=== PATIENT | female | born 1955 | race Caucasian/White ===

== ENCOUNTER 2020-04-10 08:12 | Emergency (ER) | payer OTHER, SELFPAY ==
--- NOTE | 2020-04-10 08:33 | ED.SKABFB ---
HPI - Skin/Abscess/Foreign Bdy General Chief complaint: Skin/Abscess/Foreign Body Stated complaint: infected right third Time Seen by Provider: 04/10/20 08:34 Source: patient and RN notes reviewed Mode of arrival: ambulatory Limitations: no limitations History of Present Illness HPI narrative: 64-year-old female who presents to express care with complaints of pain and swelling around right 3rd finger nail bed for about 5-6 days. Patient states that it started as cuticle tear but has increased in swelling and redness. Patient states that she has soaked her finger in warm soapy water, has used peroxide and alcohol to cleanse area but no improvement. She states that she did put needle in area to attempt drainage but unsuccessful. She also has crusted area to the left thumb pad which she hit with a paperboard box maker that she inserted a needle in which she did get purulent drainage from which is now crusted with no redness noted. complaint: lesion Onset (ago): day(s) (5-6) Tetanus up to date: yes Location: R hand (3rd finger around lateral nailbed) Severity: moderate Severity scale (1-10): 5 Quality: aching Exacerbating factors: palpation Context: other (cuticle tear) Associated symptoms: denies other symptoms Treatments prior to arrival: attempted to drain pus at home Related Data Home Medications Medication Instructions Recorded Confirmed ergocalciferol (vitamin D2) 1,250 mcg PO MONTHLY 04/10/20 04/10/20 Allergies Allergy/AdvReac Type Severity Reaction Status Date / Time No Known Allergies Allergy Unverified 05/28/14 11:44 Review of Systems Review of Systems: Narrative: CONSTITUTIONAL: Denies fever, chills, or sweats. EYES: Denies visual changes, redness, or discharge. ENT: Denies rhinorrhea, congestion, sore throat, or otalgia. CARDIOVASCULAR: Denies chest pain, palpitations, or edema. RESPIRATORY: Denies cough or dyspnea. GASTROINTESTINAL: Denies abdominal pain, nausea, vomiting, or diarrhea. GENITOURINARY: Denies dysuria or hematuria. SKIN: Denies rash or itching.red inflamed tissue around 3rd finger nail bed MUSCULOSKELETAL: Denies back pain, joint pain, or myalgia. NEUROLOGIC: Denies headache, numbness, or weakness. PSYCHIATRIC: Denies anxiety or depression. All systems reviewed & are unremarkable except as noted in HPI and below PMFSH Past Medical History Medical History (Updated 04/11/20 @ 00:00 by Mark Rice) Arthritis Surgical History Surgical History (Updated 04/10/20 @ 08:39 by Sandy Ruvalcaba NP) H/O repair of left rotator cuff Hx of section Social History Social History (Updated 04/10/20 @ 09:04 by Sandy Ruvalcaba NP) Smoking status: Never smoker Alcohol intake: unknown Substance use: unknown Living arrangements: with family Gender identity (if verbalized by the patient): Female Comments At time of signature, agree with nursing past medical, surgical, social history. There is no relevant family history pertinent to the presenting complaint Exam Narrative: Exam Narrative: GENERAL: Well-appearing, well-nourished, and in no acute distress. HEAD: Normocephalic, atraumatic. EYES: PERRLA and EOMI. ENT: Nares clear, no rhinorrhea or epistaxis. Mucous membranes moist. NECK: Supple. CHEST: Clear to auscultation. No respiratory distress. HEART: Regular rate and rhythm. No murmur heard. Normal peripheral pulses. ABDOMEN: Soft, nontender, nondistended, normal active bowel sounds. EXTREMITIES: Normal range of motion. No edema. SKIN: Warm, dry, no rash. Red swollen tissue to nail bed of 3rd right finger, painful to palpation on lateral aspect of nailbed especially, no drainage noted, whitish tissue at lateral area where initial cuticle tear was. Patient denies any tingling or numbness to finger, nailbed has brisk capillary refill. NEURO: No focal deficits. Alert and oriented x3. Course Vital Signs Vital signs: Vital Signs Temperature 36.6 C 04/10/20 08:35 Pulse Rate
[2020-04-10 08:35] VITALS: BP 131/66; PULSE 72; RESP 16; TEMP 36.6; O2SAT 99
== END 2020-04-10 09:06 | disposition home or self-care (01) ==
PROVIDERS: Emergency Provider Registered Nurse; PCP Family Medicine
DX: L03.011 Cellulitis of right finger (principal); M19.90 Unspecified osteoarthritis, unspecified site
CPT/HCPCS: 10160; 99213; G0463

== ENCOUNTER 2020-11-03 10:02 | Outpatient (CLI) | payer OTHER, SELFPAY ==
[2020-11-03 10:26] LABS: Basophils Absolute Auto 0.1 K/mm3 (0.0-0.1); Basophils Percent Auto 0.7 % (0.2-1.2); Eosinophils Absolute Auto 0.3 K/mm3 (0-0.3); Eosinophils Percent Auto 4.6 % (0-4.4); Hematocrit 40.7 % (37.0-47.0); Hemoglobin 13.4 g/dL (12.0-15.0); Immature Granulocyte Absolute 0.04 K/mm3 (0.00-0.031); Immature Granulocyte Percent A 0.6 % (0-0.5); Lymphocytes Percent Auto 21.5 % (18.3-44.2); Mean Corpuscular HGB Conc 32.9 g/dl (32-36); Mean Corpuscular Hemoglobin 31.1 pg (26-34); Mean Corpuscular Volume 94.4 fl (80-100); Mean Platelet Volume 9.5 fl (7.4-10.4); Monocytes Absolute Auto 0.7 K/mm3 (0.1-0.6); Monocytes Percent Auto 9.3 % (2.6-8.5); Neutrophils Absolute Auto 4.4 K/mm3 (1.3-6.7); Neutrophils Percent Auto 63.3 % (45.5-73.1); Platelet Count Result 432 k/mm3 (150-375); Red Blood Count 4.31 M/mm3 (4.2-5.4); Red Cell Distribution Width 13.4 % (11.5-14.5)
[2020-11-03 10:39] LABS: Alanine Aminotransferase 15 U/L (4-35); Albumin Level 4.3 g/dL (3.5-5.1); Alkaline Phosphatase 52 U/L (38-126); Anion Gap 5 mmol/L (8-16); Aspartate Amino Transferase 29 U/L (14-36); Bilirubin,Total 0.7 mg/dL (0.2-1.3); Blood Urea Nitrogen 17 mg/dL (7-17); Calcium 9.2 mg/dL (8.4-10.2); Carbon Dioxide 29 mmol/L (22-30); Chloride 105 mmol/L (98-107); Cholesterol 201 mg/dL (0-200); Estimated Glomerular Filt Rate > 60; Glucose 92 mg/dL (65-105); HDL Direct 64 mg/dL; Potassium 4.3 mmol/L (3.4-5.0); Sodium 139 mmol/L (137-145); Triglycerides 88 mg/dL (<150)
[2020-11-03 10:50] LABS: LDL Cholesterol Direct 91 mg/dL
== END 2020-11-03 10:03 | disposition home or self-care (01) ==
PROVIDERS: PCP Internal Medicine; Visit Provider Internal Medicine
DX: Z00.00 Encounter for general adult medical examination without abnormal findings (principal)
CPT/HCPCS: 36415; 80053; 80061; 84443; 85025

== ENCOUNTER 2021-08-19 05:57 | Observation (INO) | payer OTHER, SELFPAY ==
[2021-08-05 08:57] VITALS: BMI 23.4
[2021-08-19] VITALS (30 sets, daily range): BP systolic 86–148; BP diastolic 53–69; PULSE 64–94; RESP 11–20; TEMP 36.1–37.3; O2SAT 95–100
--- NOTE | ~2021-08-19 | XR_ITS ---
EXAMINATION: XR chest 1V portable DATE: 08/19/2021 06:44 INDICATION: Syncope. Weakness. TECHNIQUE: frontal view of the chest was obtained. COMPARISON: Chest radiograph dated 04/04/2008 FINDINGS: Biapical pleural-parenchymal scarring and calcified nodule at the right apex consistent with old gran ulomatous disease. No other airspace opacities, pulmonary edema, pleural effusion or pneumothorax. Th e cardiomediastinal silhouette is normal. IMPRESSION: 1. No acute cardiopulmonary disease. Reviewed, dictated and finalized at location A. NICAL SALES SUPPORT MANAGER
--- NOTE | ~2021-08-19 | CT_ITS ---
EXAMINATION: CT brain wo con DATE: 08/19/2021 06:46 INDICATION: Syncope post fall TECHNIQUE: Computed tomography (CT) of the head was performed without intravenous contrast. Sagittal and coronal reconstructions were performed. The mA was adjusted according to patient size. Iterative reconstruction technique was employed. The dose-length product was 681.00 mGy-cm. COMPARISON: None FINDINGS: No fracture. No acute intracranial hemorrhage, acute infarction or abnormal extra axial fluid collect ion. Ventricles are normal and symmetric. No mass/mass effect. Changes of right intraocular lens repl acement. The orbits, paranasal sinuses and mastoid air cells are normal. IMPRESSION: 1. No fracture or acute intracranial process. Reviewed, dictated and finalized at location A. INTEGRATION ARCHITECT
--- NOTE | ~2021-08-19 | CT_ITS ---
EXAMINATION: CT cervical spine wo con DATE: 08/19/2021 06:46 INDICATION: Neck pain post syncopal episode with fall. TECHNIQUE: Computed tomography (CT) of the cervical spine was performed without intravenous contrast. Automated exposure control and iterative reconstruction technique were employed. The dose-length pro duct was 117.81 mGy-cm. COMPARISON: None FINDINGS: Alignment is normal. Vertebral body heights are normal. No fracture. Moderate disc height loss at C5- C6 and C6-C7 and mild disc height loss at C2-C3 and C4-C5. Dense sclerotic lesion with spiculated mar gins at the C5 vertebral body likely bone island. Biapical pleural-parenchymal scarring. Calcified no dule at the right apex consistent with old granulomatous disease. Cervical soft tissues are unremarka ble. The following disc levels are specifically discussed: C2-C3: There is no uncovertebral joint osteoarthritis. There is mild left and severe right facet join t osteoarthritis. There is no neural foraminal stenosis. There is no central canal stenosis. C3-C4: There is mild bilateral uncovertebral joint osteoarthritis. There is mild right and moderate l eft facet joint osteoarthritis. There is no neural foraminal stenosis. There is no central canal sten osis. C4-C5: Disc is mildly bulging. There is mild right and moderate left uncovertebral joint osteoarthrit is. There is mild right and severe left facet joint osteoarthritis. There is minimal right and mild l eft neural foraminal stenosis. There is mild central canal stenosis. C5-C6: Small posterior disc osteophyte complex. There is moderate bilateral uncovertebral joint osteo arthritis. There is mild left and moderate right facet joint osteoarthritis. There is mild bilateral neural foraminal stenosis. There is mild central canal stenosis. C6-C7: Small posterior disc osteophyte complex. There is severe bilateral uncovertebral joint osteoar thritis. There is mild bilateral facet joint osteoarthritis. There is mild bilateral neural foraminal stenosis. There is mild central canal stenosis. C7-T1: There is no uncovertebral joint osteoarthritis. There is severe right and moderate left facet joint osteoarthritis. There is no neural foraminal stenosis. There is no central canal stenosis. IMPRESSION: 1. Moderate cervical spondylosis. No acute osseous abnormality. Reviewed, dictated and finalized at location A. PRESS TENDER
--- NOTE | ~2021-08-19 | US_ITS ---
EXAMINATION: US carotid duplex BI DATE: 08/20/2021 10:57 INDICATION: Syncope TECHNIQUE: Grayscale, color Doppler, and pulsed Doppler images of the cervical carotid arteries were obtained. The degree of vessel stenosis is placed in one of the following categories: normal, <50%, 5 0-69%, >=70% but less than near-occlusion, near-occlusion, or total occlusion. Note that percent sten osis relative to normal distal artery lumen diameter is indirectly measured from velocity measurement s as described by Miguel Angel, et al. Radiology 2003; [id number]. COMPARISON: None. FINDINGS: RIGHT: The right common carotid artery (CCA) peak systolic velocity (PSV) is 142 cm/s. The right internal ca rotid artery (ICA) PSV is 87 cm/s. The right ICA end-diastolic velocity (EDV) is 10 cm/s. The right I CA/CCA PSV ratio is 0.6. Grayscale and color Doppler images yield an estimate of <50% diameter reduct ion from minimal plaque in the ICA. The external carotid artery (ECA) PSV is 142 cm/s. There is anteg rade flow in the right vertebral artery. LEFT: The left CCA PSV is 142 cm/s. The left ICA PSV is 89 cm/s. The left ICA EDV is 29 cm/s. The left ICA/ CCA PSV ratio is 0.6. Grayscale and color Doppler images yield an estimate of <50% diameter reduction from minimal plaque in the ICA. The ECA PSV is 159 cm/s. There is antegrade flow in the left vertebr al artery. IMPRESSION: 1. <50% stenosis from minimal plaque in the right internal carotid artery. 2. <50% stenosis from minimal plaque in the left internal carotid artery. Reviewed, dictated and finalized at location A. LE HAND
--- NOTE | 2021-08-19 06:26 | ECG_ITS ---
Measurements Intervals [place] Rate: 62 P: 33 SC: 181 QRS: 66 QRSD: 110 T: 58 QT: 426 QTc: 435 Interpretive Statements SINUS RHYTHM INCOMPLETE RIGHT BUNDLE BRANCH BLOCK BASELINE ARTIFACT- I, II, III, AVR, AVF, V1, V5 BORDERLINE ECG Electronically Signed On 08-19-2021 7:17:51 EDGE KITTER by Zenon Mason D.O.
--- NOTE | 2021-08-19 06:33 | PC.NURSE ---
Pt to CT at this time.
[2021-08-19] MEDS: SODIUM CHLORIDE 0.9% IV 1,000 ML 999 ML IV CONT ×2 (06:44→09:01)
--- NOTE | 2021-08-19 06:44 | ED.GENADULT ---
HPI - General Adult General Chief complaint: Syncope <Tai Aiken MD - Last Filed: 08/19/21 06:49> Stated complaint: syncope hit head <Tai Aiken MD - Last Filed: 08/19/21 06:49> Time Seen by Provider: 08/19/21 06:17 <Tai Aiken MD - Last Filed: 08/19/21 06:49> History of Present Illness HPI narrative: Patient is a 65-year-old female who presents the emergency department with chief complaint of syncope. The patient reports has been undergoing a bowel prep for colonoscopy today the patient states that she has had multiple episodes where she has become lightheaded and passed out or almost passed out with having a total of 4 episodes of that. The patient states that the last when she struck her head and felt extremely weak afterwards. The patient denies chest pain reports that her ribs are sore <Tai Aiken MD - Last Filed: 08/19/21 06:49> Related Data Home medications: Home Medications Medication Instructions Recorded Confirmed ergocalciferol (vitamin D2) 1,250 mcg PO MONTHLY 04/10/20 08/05/21 calcium citrate 200 mg (950 mg) 200 mg PO DAILY 11/03/20 08/05/21 tablet cholecalciferol (vitamin D3) 25 25 mcg PO DAILY 11/03/20 08/05/21 mcg (1,000 unit) capsule multivitamin 1 tablet PO DAILY 11/03/20 08/05/21 <Tai Aiken MD - Last Filed: 08/19/21 06:49> Allergies/adverse reactions: Allergies Allergy/AdvReac Type Severity Reaction Status Date / Time No Known Allergies Allergy Verified 08/19/21 06:10 <Tai Aiken MD - Last Filed: 08/19/21 06:49> Review of Systems Review of Systems: A 10 system review of systems was completed on the patient and is negative except for what is stated in the HPI. Nursing and ancillary documentation was reviewed. <Tai Aiken MD - Last Filed: 08/19/21 06:49> PMFSH Past Medical History Medical History: Medical History Age related osteoporosis Arthritis <Tai Aiken MD - Last Filed: 08/19/21 06:49> Surgical History Surgical History: Surgical History H/O breast biopsy H/O repair of left rotator cuff Hx of section <Tai Aiken MD - Last Filed: 08/19/21 06:49> Family History Family History: Family History Father Diabetes mellitus Hypertension Mother Hypertension <Tai Aiken MD - Last Filed: 08/19/21 06:49> Social History Social History: Social History Smoking status: Never smoker Alcohol intake: never Substance use: never Substance use type: does not use Gender identity (if verbalized by the patient): Female Spiritual care concerns: No <Tai Aiken MD - Last Filed: 08/19/21 06:49> Exam Narrative: GENERAL: Well-appearing, well-nourished, and in no acute distress. HEAD: Normocephalic, atraumatic. EYES: PERRLA and EOMI. ENT: Nares clear, no rhinorrhea or epistaxis. Mucous membranes moist. NECK: Supple. CHEST: Clear to auscultation. No respiratory distress. HEART: Regular rate and rhythm. No murmur heard. Normal peripheral pulses. ABDOMEN: Soft, nontender, nondistended, normal active bowel sounds. EXTREMITIES: Normal range of motion. No edema. SKIN: Warm, dry, no rash. NEURO: No focal deficits. Alert and oriented x3. PSYCH: Normal mood and affect. <Tai Aiken MD - Last Filed: 08/19/21 06:49> Course Course Emergency Course: EKG is sinus rhythm rate of 62 QRS is 133 <Tai Aiken MD - Last Filed: 08/19/21 06:49> No syncopal episode throughout her ER stay. Discussed with the hospitalist and accepted the admit. <Kyree Salinas MD - Last Filed: 08/19/21 09:08
[2021-08-19 06:54] LABS: Basophils Absolute Auto 0.1 K/mm3 (0.0-0.1); Basophils Percent Auto 0.3 % (0.2-1.2); Eosinophils Percent Auto 0.1 % (0-4.4); Hematocrit 45.5 % (37.0-47.0); Hemoglobin 15.6 g/dL (12.0-15.0); Immature Granulocyte Percent A 0.5 % (0-0.5); Lymphocytes Percent Auto 4.9 % (18.3-44.2); Mean Corpuscular HGB Conc 34.3 g/dl (32-36); Mean Corpuscular Hemoglobin 32.2 pg (26-34); Mean Corpuscular Volume 93.8 fl (80-100); Mean Platelet Volume 9.7 fl (7.4-10.4); Monocytes Absolute Auto 0.7 K/mm3 (0.1-0.6); Monocytes Percent Auto 3.6 % (2.6-8.5); Neutrophils Absolute Auto 16.5 K/mm3 (1.3-6.7); Neutrophils Percent Auto 90.6 % (45.5-73.1); Platelet Count Result 583 k/mm3 (150-375); Red Blood Count 4.85 M/mm3 (4.2-5.4); Red Cell Distribution Width 13.7 % (11.5-14.5); White Blood Count 18.2 K/mm3 (4.5-10.0)
[2021-08-19 07:12] LABS: Lactic Acid Reflex 1.9 mmol/L (0.7-2.1)
[2021-08-19 07:13] LABS: Prothrombin Time 13.3 Seconds (11.1-14.7)
[2021-08-19 07:14] LABS: Partial Thromboplastin Time 23.9 SECONDS (22.3-36.8)
[2021-08-19 07:17] LABS: Alanine Aminotransferase 22 U/L (4-35); Albumin Level 5.1 g/dL (3.5-5.1); Alkaline Phosphatase 70 U/L (38-126); Anion Gap 14 mmol/L (8-16); Aspartate Amino Transferase 48 U/L (14-36); Bilirubin,Total 1.4 mg/dL (0.2-1.3); Blood Urea Nitrogen 17 mg/dL (7-17); Carbon Dioxide 18 mmol/L (22-30); Chloride 103 mmol/L (98-107); Estimated CRCL calculation 40 ml/min; Estimated Glomerular Filt Rate 55; Glucose 127 mg/dL (65-110); Potassium 4.1 mmol/L (3.4-5.0); Sodium 135 mmol/L (137-145)
[2021-08-19 07:23] LABS: Troponin I 0.016 ng/mL (0.000-0.034)
[2021-08-19 07:27] LABS: Add Urine Microscopic? YES; Appearance Urine Cloudy (Clear); Bacteria Urine Trace /hpf; Bilirubin Urine Negative (Negative); Blood Urine 1+ (Negative); Color Urine Amber (Yellow); Glucose Urine UA Negative (Negative); Hyaline Casts Urine 50+ /lpf; Ketones Urine Negative (Negative); Leukocyte Esterase Ur Negative LEU/UL (Negative); Mucus Urine Moderate /lpf; Nitrate Urine Negative (Negative); Protein Urine 3+ mg/dL (Negative); Specific Grav Ur 1.024 (1.001-1.035); Squamous Epithelial Cell Urine Few /hpf (Few); Urobilinogen Urine Negative mg/dL (<2.0)
[2021-08-19 07:33] LABS: Magnesium 2.8 mg/dL (1.6-2.3)
[2021-08-19 10:07] LABS: Troponin I < 0.012 ng/mL (0.000-0.034)
[2021-08-19] MEDS: LACTATED RINGERS 1,000 ML 125 ML IV CONT ×2 (10:09→18:55)
--- NOTE | 2021-08-19 11:10 | PC.NURSE ---
Pt inquiring about her colonoscopy. States to this nurse if I can't have it done today then I will just leave.
--- NOTE | 2021-08-19 12:46 | ADMGEN ---
This patient, Mariluz Stephen, was admitted to Medical Room 248-. Patient/family oriented to hospital policies and general routines including ID bracelet, bed and alarms, visiting hours, pain management, procedures, bathroom and other care routines, personal items, smoking policy, room service/diet, and visiting hours. Information on how to activate the Rapid Response Team has been discussed. Patient/Family are encouraged to report perceived risks to care and to ask questions if they do not understand what they are told or what they should do.
[2021-08-19 13:10] LABS: Troponin I < 0.012 ng/mL (0.000-0.034)
--- NOTE | 2021-08-19 13:13 | CONS_ITS ---
This report was moved to the correct visit, on 08/31/21. Original report was signed by Osmani Park MD 08/19/21 1313. Assessment and Plan Assessment and plan (1) Encounter for screening colonoscopy: Code(s): Z12.11 - Encounter for screening for malignant neoplasm of colon Status: Acute Assessment and Plan: Patient presents for screening colonoscopy. Has already had preparation. Will plan to proceed with colonoscopy tomorrow as she is prepared if syncope workup is negative. Workup in the emergency room appears unremarkable. (2) Syncope: Qualifiers: Syncope type: unspecified Qualified Code(s): R55 - Syncope and collapse Code(s): R55 - Syncope and collapse Status: Acute Assessment and Plan: Patient had near syncopal episode last evening. Likely on the basis of dehydration. She may have had some vagal symptoms. Plan for IV fluids proceed with colonoscopy in a.m. if others agree. GI Consult Note Consult date/time: 08/19/21 13:10 HPI: Mariluz Stephen is a 65 year old female I am asked to see for a screening colonoscopy. Patient initially scheduled for outpatient colonoscopy today. Patient's last colonoscopy 10 years ago. Patient was somewhat concerned over poor preparation and for this reason has remained on a liquid diet for the last 2-3 days. Last evening she took some laxative preparation. She reports a near syncopal episode and fell in the restroom. For this reason was taken to the emergency room. She was admitted for observation IV fluids. Apparently a CT scan of the head, neck was unremarkable. Chest x-ray also unremarkable. Patient states her bowel habits tend to be normal. She has no bleeding. No abdominal pain. No fever. Her family history is noncontributory. Review of Systems Review of Systems: All systems reviewed & are unremarkable except as noted in HPI and below PMFSH Past Medical History Medical History Age related osteoporosis Arthritis Surgical History Surgical History H/O breast biopsy H/O repair of left rotator cuff Hx of section Family History Family History (Updated 08/19/21 @ 13:04 by Maribell Leija RN) Father Diabetes mellitus Hypertension Pneumonia Sepsis Mother Hypertension Social History Social History Smoking status: Never smoker Alcohol intake: never Substance use: never Substance use type: does not use Gender identity (if verbalized by the patient): Female Spiritual care concerns: No Meds Home Medications and Allergies Home Medications Medication Instructions Recorded Confirmed Type ergocalciferol (vitamin D2) 1,250 mcg PO MONTHLY 04/10/20 08/19/21 History calcium citrate 200 mg (950 mg) 200 mg PO DAILY 11/03/20 08/19/21 History tablet cholecalciferol (vitamin D3) 25 25 mcg PO DAILY 11/03/20 08/19/21 History mcg (1,000 unit) capsule multivitamin 1 tablet PO DAILY 11/03/20 08/19/21 History Allergies Allergy/AdvReac Type Severity Reaction Status Date / Time No Known Allergies Allergy Verified 08/19/21 13:03 Exam Narrative: Physical exam patient is alert comfortable at rest. HEENT exam is unremarkable to my exam. She is anicteric. Lungs are clear. Heart without murmur. Abdomen bowel sounds are present soft nontender with no organomegaly. [facility] Consult Billing Inpatient Consult [id number] Initial Admit M
--- NOTE | 2021-08-19 18:02 | PM.IMHP ---
H&P: HPI History of Present Illness Date/Time: 08/19/21 1700 this is a 65 who had been prepping herself for a routine colonoscopy. Patient was scheduled to have a colonoscopy this morning. However yesterday when the patient was prepping for her colonoscopy she felt lightheaded and fell on the floor. She stated that she did hit her head at that time but she does not recall losing consciousness. The patient stated that she also vomited and when she got up she believes that she slid on the vomitus and hit her head again. However the her stated that she had 4 episodes of syncope in that she did lose consciousness. The patient stated that her cognitive level decreased and her was concerned because she had her head twice. So he brought her to the emergency room. The patient stated that she felt very weak prior to coming to the emergency room. The patient was scheduled for a colonoscopy as a routine procedure and has not had any issues. Last routine colonoscopy was over 10 years ago. GI has been consulted and the plan is to proceed with colonoscopy tomorrow if possible. Her white count was noted to be 18.2. Magnesium 2.8. Troponins were negative x3. Blood sugar 127. Head CT was read as no fracture or acute intracranial process. Chest x-ray was read as no acute cardiopulmonary disease. Cervical spine CT was read as moderate cervical spondylosis no acute osseous abnormality. The patient is complaining of having some discomfort to the right side of her chest. The pain is reproducible and hurts worse with movement. The patient was started on IV fluids in the emergency room. The patient felt nauseated and vomited earlier while prepping for colonoscopy but is no longer feeling nauseated. The patient is being admitted to observation on date of service of 08/19/2021. Chief Complaint: Syncopal episode Review of Systems Review of Systems: All systems reviewed & are unremarkable except as noted in HPI and below Constitutional: Constitutional: Reports as per HPI and Reports no additional constitutional complaints Eyes: Eyes: Reports as per HPI and Reports no additional eye complaints ENT: Reports system reviewed and no additional complaints, except as documented and Reports Normal hearing present Cardiovascular: Cardiovascular: Reports no additional cardiovascular complaints Respiratory: Respiratory: Reports no additional respiratory complaints and Reports no additional respiratory complaints Gastrointestinal: Gastrointestinal: Reports as per HPI and Reports no additional gastrointestinal complaints Musculoskeletal: Musculoskeletal: Reports no additional musculoskeletal complaints Integumentary/Breasts: Skin/Breast: Reports system reviewed and no additional complaints, except as docu and Reports as per HPI Neurologic: Reports system reviewed and no additional complaints, except as documented, Reports as per HPI and Reports Normal hearing present Psychiatric: Psychiatric: Reports no additional psychiatric complaints and Reports as per HPI Endocrine: Endocrine: Reports no additional endocrine complaints Hematologic/Lymphatic: Hematologic/Lymphatic: Reports no additional hematologic/lymphatic complaints Allergic/Immunologic: Allergic/Immunologic: Reports no additional allergic/immunologic complaints [facility] Past Medical History Medical History Age related osteoporosis Arthritis Surgical History Surgical History H/O breast biopsy H/O repair of left rotator cuff Hx of section Family History Family History Father Diabetes mellitus Hypertension Pneumonia Sepsis Mother Hypertension Social History Social History (Updated 08/19/21 @ 18:24 by Luli Murcia NP) Social History: The patient is and her is the durable power at
[2021-08-20] VITALS (9 sets, daily range): BP systolic 100–152; BP diastolic 61–78; PULSE 71–94; RESP 14–19; TEMP 36.6–36.9; O2SAT 97–99; BMI 24.9
--- NOTE | 2021-08-20 | ECHO_ITS ---
Patient Info Name: Mariluz Stephen Age: 65 years : 1955 Gender: Female Ht: 63 in Wt: 135 lbs BSA: 1.66 m2 HR: 81 bpm BP: 136 / 64 mmHg Heart Rhythm: Sinus Rhythm Technical Quality: Fair Exam Date: 08/20/2021 9:44 AM Exam Location: [facility]monary Patient Status: Inpatient Admit Date: 08/19/2021 Staff Ordering Physician: Luli Murcia NP Sales Compensation Analyst: Anh Lopes RDCS Attending Provider: Tai Giles MD Referring Physician: Divina LIN; Exam Type: CA echo doppler color flow Study Info Indications - syncope Complete two-dimensional, color flow and Doppler transthoracic echocardiogram is performed. Summary 1. Complete two-dimensional, color flow and Doppler transthoracic echocardiogram is performed. 2. Left ventricular chamber dimension is normal. 3. Left ventricular systolic function is hyperdynamic, estimated at >70%. 4. The left ventricular diastolic function is normal. 5. E/e' 9 is minimally elevated. 6. No pulmonary hypertension, estimated pulmonary arterial systolic pressure is 28 mmHg. Left Ventricle E/e' 9 is minimally elevated. Left ventricular chamber dimension is normal. Left ventricular systolic function is hyperdynamic, estimated at >70%. The left ventricular diastolic function is normal. Right Ventricle Right ventricular systolic function is normal and with normal TAPSE 2.0 cm. Right ventricular chamber dimension is normal. Left Atria Left atrial chamber dimension is normal. Right Atria Right atrial chamber dimension is normal. Aortic Valve The aortic valve is trileaflet. There is no aortic valve stenosis. There is no aortic valve regurgitation. Pulmonic Valve There is no pulmonic regurgitation. Mitral Valve There is no mitral valve stenosis. There is no mitral valve regurgitation. Tricuspid Valve There is no tricuspid valve regurgitation. No pulmonary hypertension, estimated pulmonary arterial systolic pressure is 28 mmHg. Pericardium/Pleural There is no pericardial effusion. Inferior Vena Cava Normal inferior vena cava with >50% collapse upon inspiration consistent with normal right atrial pressure, 5 mmHg. Aorta The aortic root size at the sinus of Valsalva is normal. Left Ventricular Outflow Tract Name Value Normal LVOT 2D LVOT Diameter 1.9 cm LVOT Doppler LVOT Peak Gradient 11 mmHg LVOT Mean Gradient 5 mmHg LVOT VTI 31 cm LVOT VTI/AV VTI Ratio 0.8 LVOT Stroke Volume 90 ml LVOT CO 6.8 l/min LVOT CI 4.1 l/min/m2 Pulmonic Valve Name Value Normal RVOT Doppler RVOT Peak Gradient 3 mmHg PV Doppler
[2021-08-20] MEDS: LACTATED RINGERS 1,000 ML 125 ML IV CONT (03:02)
[2021-08-20 05:56] LABS: Basophils Percent Auto 0.3 % (0.2-1.2); Eosinophils Absolute Auto 0.1 K/mm3 (0-0.3); Eosinophils Percent Auto 0.8 % (0-4.4); Hematocrit 35.1 % (37.0-47.0); Hemoglobin 12.1 g/dL (12.0-15.0); Immature Granulocyte Absolute 0.03 K/mm3 (0.00-0.031); Immature Granulocyte Percent A 0.3 % (0-0.5); Lymphocytes Absolute Auto 1.22 K/mm3 (0.9-3.2); Lymphocytes Percent Auto 11.5 % (18.3-44.2); Mean Corpuscular HGB Conc 34.5 g/dl (32-36); Mean Corpuscular Hemoglobin 32.4 pg (26-34); Mean Corpuscular Volume 93.9 fl (80-100); Mean Platelet Volume 9.5 fl (7.4-10.4); Monocytes Absolute Auto 0.9 K/mm3 (0.1-0.6); Monocytes Percent Auto 8.1 % (2.6-8.5); Neutrophils Absolute Auto 8.4 K/mm3 (1.3-6.7); Platelet Count Result 475 k/mm3 (150-375); Red Blood Count 3.74 M/mm3 (4.2-5.4); Red Cell Distribution Width 13.7 % (11.5-14.5); White Blood Count 10.6 K/mm3 (4.5-10.0)
[2021-08-20 06:10] LABS: Lactic Acid Reflex 0.7 mmol/L (0.7-2.1)
[2021-08-20 06:15] LABS: Alanine Aminotransferase 15 U/L (4-35); Albumin Level 3.7 g/dL (3.5-5.1); Alkaline Phosphatase 59 U/L (38-126); Anion Gap 6 mmol/L (8-16); Aspartate Amino Transferase 31 U/L (14-36); Bilirubin,Total 0.9 mg/dL (0.2-1.3); Blood Urea Nitrogen 7 mg/dL (7-17); Calcium 8.4 mg/dL (8.4-10.2); Carbon Dioxide 23 mmol/L (22-30); Chloride 107 mmol/L (98-107); Estimated CRCL calculation 65 ml/min; Estimated Glomerular Filt Rate > 60; Glucose 102 mg/dL (65-110); Magnesium 2.3 mg/dL (1.6-2.3); Potassium 3.3 mmol/L (3.4-5.0); Sodium 136 mmol/L (137-145)
[2021-08-20 07:24] LABS: Thyroid Stimulating Hormone Reflex 0.933 uIU/mL (0.465-4.68)
--- NOTE | 2021-08-20 12:01 | PC.NURSE ---
Patient to GI lab per wheelchair.
[2021-08-20] MEDS: LACTATED RINGERS 1,000 ML 150 ML IV CONT (12:15)
--- NOTE | 2021-08-20 12:36 | WPDHPUPDATE1 ---
History and Physical Update Update Date/Time: 08/20/21 12:36 History and Physical has been reviewed, including an updated exam of the patient. There are NO changes in the patient's condition. Risks, benefits, and alternatives have been discussed and questions answered. Patient agrees to proceed with procedure.
--- NOTE | 2021-08-20 13:59 | PC.NURSE ---
Patient returned from GI lab.
--- NOTE | 2021-08-20 14:16 | PM.DS ---
DS: Admitting Diagnosis Discharge Date 08/20/21 Admitting Diagnosis (1) Syncope: Qualifiers: Syncope type: unspecified Qualified Code(s): R55 - Syncope and collapse Code(s): R55 - Syncope and collapse Status: Acute Assessment and Plan: I ambulated the patient to the restroom and she appeared to do well. This could be a vagal response. Patient could also be dehydrated. Continue with IV fluids for now. The patient is no longer nauseated. The patient stated that she became nauseated and weak after taking the prep for the colonoscopy. Will continue with orthostatic blood pressures. I did order an echo and carotid Dopplers. Patient is not currently having any issues at this time and should proceed with her colonoscopy. (2) Leukocytosis: Code(s): D72.829 - Elevated white blood cell count, unspecified Status: Acute Assessment and Plan: Unsure of etiology. Could be stress related. UA was negative. Urine cultures pending. Chest x-ray was negative as well. (3) Encounter for screening colonoscopy: Code(s): Z12.11 - Encounter for screening for malignant neoplasm of colon Status: Acute Assessment and Plan: The patient saw the GI specialist today and the plan is for the patient to go through with colonoscopy tomorrow. DS: Discharge Diagnosis Discharge Diagnosis (1) Vasovagal episode: Code(s): R55 - Syncope and collapse Status: Acute (2) Syncope: Qualifiers: Syncope type: unspecified Qualified Code(s): R55 - Syncope and collapse Code(s): R55 - Syncope and collapse Status: Acute (3) Polyp of ascending colon: Code(s): K63.5 - Polyp of colon Status: Acute (4) Internal hemorrhoids: Code(s): K64.8 - Other hemorrhoids Status: Acute (5) Diverticulosis: Code(s): K57.90 - Diverticulosis of intestine, part unspecified, without perforation or abscess without bleeding Status: Acute DS: Summary Hospital Course Reason for hospitalization: syncope Hospital Course: 65-year-old female with no significant comorbidities admitted to the hospital after suffering what appears to be a vasovagal episode during bowel prep for a colonoscopy. She has remained stable during hospitalization telemetry monitoring without any events noted, bilateral carotid ultrasound negative for stenosis, echocardiogram was unremarkable. Patient underwent colonoscopy during hospitalization with findings of polyps in the ascending colon, internal hemorrhoids, diverticulosis. She is given indications to follow-up with Dr. Park after discharge as well as her PCP. Status at Discharge Functional status at discharge: independent ambulation Overall status at discharge: patient is back to baseline Time Spent with Patient Time attestation: Total time spent providing and/or coordinating discharge services: Time spent: Less than 30 minutes Exam Narrative: GEN: NAD, AAOx3, cooperative HEENT: NCAT, MMM, EOMI Neck: no JVD Lungs: symmetric chest rise, no use of accessory muscles Abd: soft, NT, ND Ext: moves all, no cyanosis, no clubbing, no edema Neuro: CN intact no focal neurological deficits Psych: mood and affect congruent DS: Data Data Completed and Pending Pending studies at discharge: Pending at discharge 08/20/21 13:24 Surgical [PTH] Routine Labs on day of discharge: Labs from last 24 hours 08/20/21 08/20/21 08/20/21 05:36 05:36 05:36 WBC RBC Hgb Hct MCV MCH MCHC RDW Plt Count MPV Immature Gran % (Auto) Neut % (Auto) Lymph % (Auto) Converse % (Auto) Eos % (Auto) Baso % (Auto) Lymph # (Auto) Converse # (Auto) Eos # (Auto) Baso # (Auto) Abs Immat Gran (auto) Absolute Neuts (auto) Absolute Nucleated RBC Nucleated RBC % Sodium 136 L Potassium 3.3 L Chloride 107 Carbon Dioxide 23 Anion Gap 6 L BUN 7 D Cre
== END 2021-08-20 16:25 | disposition home or self-care (01) ==
LOC: ANHED 09:08 → ANH3MEDSUR 11:06 → ANH2MED 15:08 → ANH3MEDSUR 08-23 16:57
PROVIDERS: Emergency Medicine; Internal Medicine Gastroenterology; Nurse Practitioner; Admitting Provider Internal Medicine; Emergency Provider Emergency Medicine; PCP Internal Medicine; Visit Provider Hospitalist
PROC: 0DJD8ZZ Inspection of Lower Intestinal Tract, Via Natural or Artificial Opening Endoscopic (ICD-10-PCS; CPT 45378; principal; 2021-08-20 13:30)
DX: R55 Syncope and collapse (principal); D72.829 Elevated white blood cell count, unspecified; W18.39XA Other fall on same level, initial encounter; I65.23 Occlusion and stenosis of bilateral carotid arteries; Z12.11 Encounter for screening for malignant neoplasm of colon; D12.2 Benign neoplasm of ascending colon; K64.8 Other hemorrhoids; K57.32 Diverticulitis of large intestine without perforation or abscess without bleeding; M81.0 Age-related osteoporosis without current pathological fracture; M47.812 Spondylosis without myelopathy or radiculopathy, cervical region
CPT/HCPCS: 45385; 36415; 70450; 71045; 72125; 80053; 81001; 82728; 83605; 83735; 84443; 84484; 85025; 85610; 85730; 87086; 87088; 88305; 93005; 93306; 93880; 96360; 96361; 99285; G0378; J2704; J7030; J7120

== ENCOUNTER → 2021-08-27 11:07 | Outpatient (CLI) | payer OTHER, SELFPAY ==
--- NOTE | ~2021-08-27 | XR_ITS ---
XR ribs BI 3V w CXR 2V DATE: 08/27/2021 11:58 INDICATION: Fall. Bilateral rib pain. TECHNIQUE: PA and lateral views. 3 views of right ribs. 3 views of left ribs. COMPARISON: 08/19/2021 portable upright AP chest FINDINGS: Normal heart size. No hilar or mediastinal enlargement. No pulmonary infiltrate or consolid ation, pleural effusion or pulmonary vascular congestion or pneumothorax. Diffuse osteopenia. There are mildly displaced anterolateral right fifth and sixth recent rib fractures. No other rib fra cture is evident. IMPRESSION: Mildly displaced anterolateral recent right fifth and sixth rib fractures since 08/19/2021 Reviewed, dictated and finalized at location A. GER CUSTOMER IMPRESSION: Mildly displaced anterolateral recent right fifth and sixth rib fra ctures since 08/19/2021
== END ==
PROVIDERS: PCP Physician Assistant; Visit Provider Physician Assistant
DX: S22.41XA Multiple fractures of ribs, right side, initial encounter for closed fracture (principal); X58.XXXA Exposure to other specified factors, initial encounter
CPT/HCPCS: 71046; 71110

== ENCOUNTER 2021-10-05 13:26 | Outpatient (CLI) | payer OTHER, SELFPAY ==
--- NOTE | ~2021-10-05 | XR_ITS ---
XR thoracic spine 2V DATE: 10/05/2021 13:51 INDICATION: Back pain, chronic TECHNIQUE: AP, lateral, swimmer views COMPARISON: None FINDINGS: There is osteopenia. There is slight dextroscoliosis of the upper thoracic spine and slight levoscoliosis of the lower tho racic spine. No fracture or dislocation or bone destruction. The thoracic pedicles are intact. No paraspinal soft tissue thickening. IMPRESSION: Osteopenia Slight scoliosis Reviewed, dictated and finalized at location A. TRY KILLER IMPRESSION: Osteopenia Slight scoliosis
== END 2021-10-05 13:27 | disposition home or self-care (01) ==
LOC: ANHIMG 13:29
PROVIDERS: PCP Internal Medicine; Visit Provider Internal Medicine
DX: M54.9 Dorsalgia, unspecified (principal); M85.88 Other specified disorders of bone density and structure, other site
CPT/HCPCS: 72070

== ENCOUNTER 2023-06-12 14:39 | Outpatient (CLI) | payer OTHER, SELFPAY ==
[2023-06-12 14:54] LABS: Basophils Absolute Auto 0.1 K/mm3 (0.0-0.1); Basophils Percent Auto 0.5 % (0.2-1.2); Eosinophils Absolute Auto 0.2 K/mm3 (0-0.3); Hematocrit 40.1 % (37.0-47.0); Hemoglobin 13.6 g/dL (12.0-15.0); Immature Granulocyte Absolute 0.08 K/mm3 (0.00-0.031); Immature Granulocyte Percent A 0.8 % (0-0.5); Lymphocytes Absolute Auto 1.47 K/mm3 (0.9-3.2); Lymphocytes Percent Auto 14.1 % (18.3-44.2); Mean Corpuscular HGB Conc 33.9 g/dl (32-36); Mean Corpuscular Hemoglobin 31.7 pg (26-34); Mean Corpuscular Volume 93.5 fl (80-100); Monocytes Absolute Auto 0.7 K/mm3 (0.1-0.6); Monocytes Percent Auto 6.3 % (2.6-8.5); Neutrophils Percent Auto 76.3 % (45.5-73.1); Platelet Count Result 718 k/mm3 (150-375); Red Blood Count 4.29 M/mm3 (4.2-5.4); Red Cell Distribution Width 14.3 % (11.5-14.5); White Blood Count 10.4 K/mm3 (4.5-10.0)
[2023-06-12 16:57] LABS: Iron 70 ug/dL (37-170)
[2023-06-12 17:23] LABS: Percent Iron Saturation 19 % (20-50)
[2023-06-12 17:34] LABS: Erythrocyte Sedimentation Rate 11 mm/hr (0-20)
[2023-06-12 18:30] LABS: Alanine Aminotransferase 20 U/L (6-35); Albumin Level 4.4 g/dL (3.5-5.1); Alkaline Phosphatase 62 U/L (38-126); Anion Gap 5 mmol/L (8-16); Aspartate Amino Transferase 32 U/L (14-36); Bilirubin,Total 0.7 mg/dL (0.2-1.3); Blood Urea Nitrogen 17 mg/dL (7-17); CRP < 0.5 mg/dL (<1.0); Calcium 9.9 mg/dL (8.4-10.2); Carbon Dioxide 27 mmol/L (22-30); Chloride 103 mmol/L (98-107); Estimated Glomerular Filt Rate > 60; Glucose 90 mg/dL (65-110); Sodium 135 mmol/L (137-145)
[2023-06-18 15:14] LABS: Block/Specimen ID Not Given; Exon 14; Gene JAK2; JAK2 V617F Mutation Detected (Not Detected); Mutation Frequency 20.6; Mutation Type missense; Specimen Source Blood
== END 2023-06-12 14:40 | disposition home or self-care (01) ==
PROVIDERS: Nurse Practitioner Family; PCP Internal Medicine; Visit Provider Internal Medicine Hematology & Oncology
DX: D75.839 Thrombocytosis, unspecified (principal)
CPT/HCPCS: 36415; 80053; 81270; 82728; 83540; 83550; 85025; 85652; 86140

== ENCOUNTER 2023-08-14 09:56 | Outpatient (CLI) | payer OTHER, SELFPAY ==
[2023-08-14 10:13] LABS: Basophils Percent Auto 0.4 % (0.2-1.2); Eosinophils Absolute Auto 0.2 K/mm3 (0-0.3); Eosinophils Percent Auto 1.5 % (0-4.4); Hematocrit 43.2 % (37.0-47.0); Hemoglobin 14.4 g/dL (12.0-15.0); Immature Granulocyte Absolute 0.07 K/mm3 (0.00-0.031); Immature Granulocyte Percent A 0.7 % (0-0.5); Lymphocytes Absolute Auto 1.38 K/mm3 (0.9-3.2); Lymphocytes Percent Auto 14.2 % (18.3-44.2); Mean Corpuscular HGB Conc 33.3 g/dl (32-36); Mean Corpuscular Hemoglobin 33.3 pg (26-34); Mean Corpuscular Volume 99.8 fl (80-100); Mean Platelet Volume 8.9 fl (7.4-10.4); Monocytes Absolute Auto 0.5 K/mm3 (0.1-0.6); Monocytes Percent Auto 5.4 % (2.6-8.5); Neutrophils Absolute Auto 7.5 K/mm3 (1.3-6.7); Neutrophils Percent Auto 77.8 % (45.5-73.1); Platelet Count Result 646 k/mm3 (150-375); Red Blood Count 4.33 M/mm3 (4.2-5.4); Red Cell Distribution Width 18.1 % (11.5-14.5); White Blood Count 9.7 K/mm3 (4.5-10.0)
[2023-08-14 10:16] LABS: Blood Urea Nitrogen 16 mg/dL (8-26); Carbon Dioxide 24 mmol/L (22-30); Chloride 104 mmol/L (98-109); Estimated Glomerular Filt Rate 23; Glucose 124 mg/dL (70-105); Ionized Calcium (POC) 1.23 mmol/L (1.11-1.31); Potassium 3.8 mmol/L (3.5-4.9); Sodium 141 mmol/L (138-146)
== END 2023-08-14 09:57 | disposition home or self-care (01) ==
LOC: ANHLAB 09:57
PROVIDERS: Nurse Practitioner Family; PCP Internal Medicine; Visit Provider Internal Medicine Hematology & Oncology
DX: D47.3 Essential (hemorrhagic) thrombocythemia (principal)
CPT/HCPCS: 36415; 80047; 85025

== ENCOUNTER 2024-02-27 10:13 | Outpatient (CLI) | payer OTHER, SELFPAY ==
[2024-02-27 10:41] LABS: Basophils Percent Auto 0.4 % (0.2-1.2); Eosinophils Absolute Auto 0.2 K/mm3 (0-0.3); Eosinophils Percent Auto 1.9 % (0-4.4); Hematocrit 41.3 % (37.0-47.0); Hemoglobin 14.1 g/dL (12.0-15.0); Immature Granulocyte Absolute 0.06 K/mm3 (0.00-0.031); Immature Granulocyte Percent A 0.6 % (0-0.5); Immature Reticulocyte Fraction 14.3 % (3.0-15.9); Lymphocytes Absolute Auto 1.55 K/mm3 (0.9-3.2); Lymphocytes Percent Auto 15.9 % (18.3-44.2); Mean Corpuscular HGB Conc 34.1 g/dl (32-36); Mean Corpuscular Hemoglobin 36.1 pg (26-34); Mean Corpuscular Volume 105.6 fl (80-100); Monocytes Absolute Auto 0.5 K/mm3 (0.1-0.6); Monocytes Percent Auto 5.3 % (2.6-8.5); Neutrophils Absolute Auto 7.4 K/mm3 (1.3-6.7); Neutrophils Percent Auto 75.9 % (45.5-73.1); Platelet Count Result 545 k/mm3 (150-375); Red Blood Count 3.91 M/mm3 (4.2-5.4); Red Cell Distribution Width 13.3 % (11.5-14.5); Reticulocyte Hemoglobin Conten 39.6 pg (28.2-36.6); Reticulocyte Percent 2.13 % (0.7-4.3); Reticulocytes Absolute 0.08 10^6/uL (0.02-0.10); White Blood Count 9.8 K/mm3 (4.5-10.0)
[2024-02-27 10:44] LABS: Blood Urea Nitrogen 16 mg/dL (8-26); Carbon Dioxide 23 mmol/L (22-30); Chloride 104 mmol/L (98-109); Estimated Glomerular Filt Rate > 60; Glucose 90 mg/dL (70-105); Potassium 3.8 mmol/L (3.5-4.9); Sodium 139 mmol/L (138-146)
[2024-02-27 12:57] LABS: Folic Acid > 20.0 ng/mL (2.76->20)
[2024-02-27 13:17] LABS: Iron 92 ug/dL (37-170)
[2024-02-27 13:32] LABS: Percent Iron Saturation 24 % (20-50)
== END 2024-02-27 10:14 | disposition home or self-care (01) ==
LOC: ANHLAB 10:14
PROVIDERS: PCP Internal Medicine; Visit Provider Nurse Practitioner Family
DX: D47.3 Essential (hemorrhagic) thrombocythemia (principal); D50.8 Other iron deficiency anemias
CPT/HCPCS: 36415; 80047; 82607; 82728; 82746; 83540; 83550; 84443; 85025; 85046

== ENCOUNTER 2024-03-13 08:17 | Outpatient (CLI) | payer OTHER, SELFPAY ==
--- NOTE | ~2024-03-13 | XR_ITS ---
EXAMINATION: XR hand LT min 3V DATE: 03/13/2024 08:30 INDICATION: Contracture, left hand fifth digit. TECHNIQUE: 3 views of left hand were obtained. COMPARISON: None. FINDINGS: There is hyperextension of fifth metacarpophalangeal joint. There is flexion of the fifth p roximal and distal interphalangeal joints on all views. No fracture. There is mild osteoarthritis of triscaphe joint and severe osteoarthritis of first carpometacarpal joint. There is mild osteoarthriti s of third and fourth distal interphalangeal joints. IMPRESSION: 1. Hyperextension of fifth metacarpophalangeal joint and flexion of fifth proximal and distal interph alangeal joints. 2. Polyarticular osteoarthritis. Reviewed, dictated and finalized at location A. IMPRESSION: 1. Hyperextension of fifth metacarpophalangeal joint and flexion of fifth proxi mal and distal interphalangeal joints. 2. Polyarticular osteoarthritis.
== END 2024-03-13 08:18 | disposition home or self-care (01) ==
PROVIDERS: PCP Internal Medicine; Visit Provider Internal Medicine
DX: M24.542 Contracture, left hand (principal); M19.042 Primary osteoarthritis, left hand
CPT/HCPCS: 73130

== ENCOUNTER 2024-06-03 10:59 | Outpatient (CLI) | payer OTHER, SELFPAY ==
[2024-06-03 11:16] LABS: Basophils Absolute Auto 0.1 K/mm3 (0.0-0.1); Basophils Percent Auto 0.5 % (0.2-1.2); Eosinophils Absolute Auto 0.2 K/mm3 (0-0.3); Eosinophils Percent Auto 1.8 % (0-4.4); Hematocrit 43.5 % (37.0-47.0); Hemoglobin 14.9 g/dL (12.0-15.0); Immature Granulocyte Percent A 0.9 % (0-0.5); Lymphocytes Percent Auto 14.5 % (18.3-44.2); Mean Corpuscular HGB Conc 34.3 g/dl (32-36); Mean Corpuscular Hemoglobin 36.2 pg (26-34); Mean Corpuscular Volume 105.6 fl (80-100); Mean Platelet Volume 8.8 fl (7.4-10.4); Monocytes Absolute Auto 0.7 K/mm3 (0.1-0.6); Monocytes Percent Auto 6.2 % (2.6-8.5); Neutrophils Absolute Auto 8.4 K/mm3 (1.3-6.7); Neutrophils Percent Auto 76.1 % (45.5-73.1); Platelet Count Result 573 k/mm3 (150-375); Red Blood Count 4.12 M/mm3 (4.2-5.4); Red Cell Distribution Width 13.3 % (11.5-14.5)
[2024-06-03 14:04] LABS: Alanine Aminotransferase 37 U/L (6-35); Albumin Level 4.3 g/dL (3.5-5.1); Alkaline Phosphatase 64 U/L (38-126); Anion Gap 9 mmol/L (4-12); Aspartate Amino Transferase 42 U/L (14-36); Bilirubin,Total 0.8 mg/dL (0.2-1.3); Blood Urea Nitrogen 20 mg/dL (7-17); Calcium 9.2 mg/dL (8.4-10.2); Carbon Dioxide 25 mmol/L (22-30); Chloride 104 mmol/L (98-107); Estimated Glomerular Filt Rate > 60; Glucose 84 mg/dL (65-110); Potassium 3.9 mmol/L (3.4-5.0); Sodium 138 mmol/L (137-145)
== END 2024-06-03 11:00 | disposition home or self-care (01) ==
LOC: ANHLAB 11:00
PROVIDERS: PCP Internal Medicine; Visit Provider Internal Medicine Hematology & Oncology
DX: D47.3 Essential (hemorrhagic) thrombocythemia (principal)
CPT/HCPCS: 36415; 80053; 85025

== ENCOUNTER 2024-08-22 06:53 | Day surgery (SDC) | payer OTHER, SELFPAY ==
[2024-08-05 08:54] VITALS: BMI 24.5
--- NOTE | 2024-08-22 06:54 | P.HP_ITS ---
History of Present Illness History of Present Illness Chief complaint: Palmar Fascial Fibromatosis Narrative: Patient seen and examined in pre-operative holding area. No interval change in medical history or symptoms. Patient recalls previous discussion of benefits and alternatives to procedure. Continues to desire to proceed with left small finger fasciectomy. Reviewed procedure, post-op expectations and risks including but not limited to bleeding, infection, injury to tendon/nerve/vessel, decreased hand function, stiffness, RSD, recurrence, incomplete release, no change or worsening of symptoms. I discussed the possible use of assistants and their participation in the case. Patient stated understanding and signed the consent form wishing to proceed. Review of Systems Review of Systems: All systems reviewed & are unremarkable except as noted in HPI and below PMFSH Past Medical History Medical History (Updated 04/30/24 @ 11:39 by Ruben Medina MD) Screening mammogram, encounter for Leukocytosis Age related osteoporosis Arthritis Surgical History Surgical History H/O breast biopsy 2005 lt breast bx--benign 02/13/19 rt breast bx H/O repair of left rotator cuff Hx of section 04/30/92 primary c/s-meconium Family History Family History Father Diabetes mellitus Hypertension Pneumonia Sepsis Mother Hypertension Other Breast cancer maternal aunt Social History Social History (Updated 01/02/24 @ 09:35 by EDMUND Manzano) Social History: The patient is and her is the durable power deputy commonwealth's attorney for healthcare. The patient has 1 biological son and has adopted a daughter. Patient is a lifelong nonsmoker. She does not use any alcohol marijuana or illicit drugs. Code status full code Caffeine-daily Smoking status: Never smoker Second hand tobacco smoke exposure: No Alcohol intake: never Substance use: never Substance use type: does not use Do You Feel Safe in your Home?: Yes Lack of Transportation: No Lack of Food: Never True Current Housing: I Have Housing Concerned About Future Housing: No Difficulty Paying Gas/Electric Bills: No Difficulty Paying for Meds: No Currently Unemployed: No Education: High School Diploma/GED Difficulty w/ Childcare or Family Care: No Living arrangements: other Additional living arrangements comments: Occupation/Education: occupation Additional occupation/education comments: [employer] Gender identity (if verbalized by the patient): Female Sexual Orientation (if Verbalized by the Patient): Straight or Heterosexual Spiritual care concerns: No Meds Home Medications and Allergies Home Medications ?Medication ?Instructions ?Recorded ?Confirmed ?Type calcium citrate 400 mg PO DAILY 11/03/20 08/22/24 History cholecalciferol (vitamin D3) 25 25 mcg PO DAILY 11/03/20 08/22/24 History mcg (1,000 unit) capsule multivitamin (Daily Multi-Vitamin 1 tablet PO DAILY 11/03/20 08/22/24 History tablet) denosumab 60 mg/mL subcutaneous 60 mg subcut [id number] 11/30/22 08/22/24 History syringe (Prolia) allopurinol 300 mg tablet 300 mg PO DAILY 01/02/24 08/22/24 History hydroxyurea 500 mg capsule (Hydrea) 500 mg PO DAILY 01/02/24 08/22/24 History ergocalciferol (vitamin D2) 1,250 1,250 mcg PO WEEKLY 08/05/24 08/22/24 History mcg (50,000 unit) capsule (Vitamin D2) Allergies Allergy/AdvReac Type Severity Reaction Status Date / Time No Known Allergies Allergy Verified 08/22/24 08:04 Exam Narrative: unchanged Assessment and Plan Assessment and plan (1) Dupuytren contracture: Code(s): M72.0 - Palmar fascial fibromatosis [Dupuytren] Status: Acute Assessment and Plan: cont as above
--- NOTE | 2024-08-22 06:54 | W.PM.PROC2 ---
Procedure Note - Detailed Date of Procedure 08/22/24 Pre-op Diagnosis left small finger dupuytren contracture Post-op Diagnosis Same Procedure Performed left small fingert fasciectomy Surgeon Ruben Medina MD Coding Specialist Home Health dafne bedoya pa-c Anesthesia MAC Description of Procedure INFORMED CONSENT: The patient was seen and examined and marked in the pre-op area.? The patient signed the consent form. PROCEDURE IN DETAIL:The patient taken back to OR on the stretcher in supine position. Time out performed with anesthesia, surgeon and staff agreeing on patient's name site and surgery to be performed SCDs were placed on the lower extremities and inflated. A tourniquet was placed on {left} upper extremity and antibiotics given IV After anesthesia administered sedation I injected {6}cc 1%lido and 0.5% marcaine plain at the operative site The?{left upper extremity}?was prepped and draped in sterile fashion the??{left upper extremity} from palm proximally was? exsanguinated with Esmarch bandage and tourniquet inflated to 250mmHg I took my attention first to the suspected cord on left small finger ulnar side crossing the pipjoint. I made a christy incision over this cord And skin flap was elevated in the subdermal plane. Spreading with Littler scissors I identified the neurovascular bundle. Dorsal to this identified a mass that did not appear consistent with a fascial cord. I proceeded with circumferential of this deep lobulated mass that appeared attached to the PIP joint and involved part of the accessory collateral ligament. this mass had the appearance consistent with a possible giant cell tumor or some sort of synovial mass.All questionable mass was excised. Irrigated with normal saline. There did not appear to be joint instability with this area of collateral ligament involvement.. After the mass was excised I was able to achieve full extension of the pipjoint. I irrigated with normal saline and closed with 4-0 chromic. Given this finding instruments were changed. I next took my attention to the left small finger retrovascular cord across dipjoint. I made a longitudinal incision over this cord at the glabrous nonglabrous border on the radial side of the digit through skin and dermis. I identified the origin of the cord proximal to the dipjoint Which was consistent with Dupuytren's fascial cord and circumferentially dissected around it after identifying and protecting the neurovascular bundle. I proceeded with resection of the cord til I was able to achieve full dipjoint release. I irrigated with normal saline and closed with 4-0 chromic. A dressing of xeroform, 4x4, joe, and an ulnar gutter splint was applied for patient safety, security, and comfort and secured with an gely bandage after the tourniquet was let down noting the hand was warm and well perfused. The patient was then awaken from anesthesia and transferred to the recovery room in stable condition.? Complications - none EBL- 0cc Disposition - home in stable conditions Dafne Bedoya PA-C was essential for positioning, retraction, closure and dressing placement [facility] [place] Surgery - Charge Forward: Surgery Billing (73045 [id number],XS same for dafne adding modifier )
[2024-08-22 08:05] VITALS: BP 162/79; PULSE 70; RESP 15; TEMP 36.6; O2SAT 99
--- NOTE | 2024-08-22 08:46 | WPDANESEPPF ---
Anes - Initial Pre Proc Eval Procedure: Operation Date: 08/22/24 09:30 Proposed Procedures p Left Small Finger Fasciectomy - Ruben Medina MD Date/Time: 08/22/24 08:46 Surgeon: Ruben Medina MD Pre Op Diagnosis: Palmar Fascial Fibromatosis Patient Data Age: 68 Gender: F Height: 1.6 m Weight: 65.35 kg Last Vital Signs Temp 36.6 C 08/22/24 08:05 Pulse 70 08/22/24 08:05 Resp 15 08/22/24 08:05 BP 162/79 H 08/22/24 08:05 Pulse Ox 99 08/22/24 08:05 O2 Del Method Room Air 08/22/24 08:05 Allergies Allergy/AdvReac Type Severity Reaction Status Date / Time No Known Allergies Allergy Verified 08/22/24 08:04 Home Medications ?Medication ?Instructions ?Recorded ?Confirmed ?Type calcium citrate 400 mg PO DAILY 11/03/20 08/22/24 History cholecalciferol (vitamin D3) 25 25 mcg PO DAILY 11/03/20 08/22/24 History mcg (1,000 unit) capsule multivitamin (Daily Multi-Vitamin 1 tablet PO DAILY 11/03/20 08/22/24 History tablet) denosumab 60 mg/mL subcutaneous 60 mg subcut [id number] 11/30/22 08/22/24 History syringe (Prolia) allopurinol 300 mg tablet 300 mg PO DAILY 01/02/24 08/22/24 History hydroxyurea 500 mg capsule (Hydrea) 500 mg PO DAILY 01/02/24 08/22/24 History ergocalciferol (vitamin D2) 1,250 1,250 mcg PO WEEKLY 08/05/24 08/22/24 History mcg (50,000 unit) capsule (Vitamin D2) tramadol 50 mg tablet 50 mg PO Q6H PRN pain #12 tabs 08/22/24 Rx Patient hx anesthesia problems: none Family hx anesthesia problems: none Results Review: All pre-operative results and documents have been reviewed as part of the pre-operative evaluation. FORMERLY [facility], [facility] Past Medical History Medical History Thrombocytosis Screening mammogram, encounter for Leukocytosis Age related osteoporosis Arthritis Surgical History Surgical History H/O breast biopsy 2005 lt breast bx--benign 02/13/19 rt breast bx Hx of section 04/30/92 primary c/s-meconium H/O repair of left rotator cuff Family History Family History Father Diabetes mellitus Hypertension Pneumonia Sepsis Mother Hypertension Other Breast cancer maternal aunt Social History Social History Social History: The patient is and her is the durable power deputy attorney general for healthcare. The patient has 1 biological son and has adopted a daughter. Patient is a lifelong nonsmoker. She does not use any alcohol marijuana or illicit drugs. Code status full code Caffeine-daily Smoking status: Never smoker Second hand tobacco smoke exposure: No Alcohol intake: never Substance use: never Substance use type: does not use Do You Feel Safe in your Home?: Yes Lack of Transportation: No Lack of Food: Never True Current Housing: I Have Housing Concerned About Future Housing: No Difficulty Paying Gas/Electric Bills: No Difficulty Paying for Meds: No Currently Unemployed: No Education: High School Diploma/GED Difficulty w/ Childcare or Family Care: No Living arrangements: other Additional living arrangements comments: Occupation/Education: occupation Additional occupation/education comments: [employer] Gender identity (if verbalized by the patient): Female Sexual Orientation (if Verbalized by the Patient): Straight or Heterosexual Spiritual care concerns: No Anes - Eval Final PreProcedure Day of Procedure 08/22/24 08:46 Patient weight: normal Heart: regular rate and rhythm Lungs: clear to auscultation Airway: Mallampati scale class II Neurological: alert and oriented Last oral intake: >/= 8 hours ASA classification: III Emergent: no Anesthetic plan: proceed Anesthesia type and monitoring: general GIVS and standard monitoring Results Review: All pre-operative results and documents have been reviewed as part of the pre-operative evaluation. Informed Consent: The patient's anesthetic plan and its attendant risks and benefits were discussed with the patient/family/POA. Questions were solicited and answers provided to the satisfaction of the patient/family/POA.
[2024-08-22] MEDS: LACTATED RINGERS 1,000 ML 30 ML IV CONT (08:49)
[2024-08-22] MEDS: ceFAZolin SODIUM 2 GM/20 ML SW SYRINGE IV PUSH (08:53)
[2024-08-22] MEDS: LIDOCAINE 1% LOCAL INJ 10 ML VIAL INFILTRATE (09:26)
[2024-08-22] MEDS: BUPivacaine HCL 0.5% PF 30 ML VIAL INFILTRATE (09:27)
[2024-08-22 09:28] VITALS: BP 151/69; PULSE 72; RESP 14; O2SAT 98
[2024-08-22 09:38] VITALS: BP 152/72; PULSE 74; RESP 14; O2SAT 100
[2024-08-22 09:48] VITALS: BP 157/76; PULSE 60; RESP 13; O2SAT 98
[2024-08-22 09:58] VITALS: BP 165/73; PULSE 62; RESP 13; O2SAT 99
[2024-08-22 10:08] VITALS: PULSE 64; RESP 15; O2SAT 99
--- NOTE | 2024-08-22 10:39 | WPDANESPN ---
Anes - Prog Note Post-Op Date/Time: 08/22/24 10:39 Cardiovascular status: normal Respiratory status: normal Airway patency: baseline Mental status: baseline Post-Op hydration status: normal Vital Signs: Last Vital Signs Temp 36.6 C 08/22/24 08:05 Pulse 64 08/22/24 10:08 Resp 15 08/22/24 10:08 BP 165/73 H 08/22/24 09:58 Pulse Ox 99 08/22/24 10:08 O2 Del Method Room Air 08/22/24 10:08 Pain Score (VAS): 0 I/O: Intake & Output 08/21/24 08/22/24 08/22/24 23:59 07:59 15:59 Intake Total 500 Balance 500 Patient Feedback: Patient satisfied with anesthetic care.
== END 2024-08-22 10:17 ==
PROVIDERS: PCP Internal Medicine; Visit Provider Plastic Surgery
PROC: (CPT 26045; principal; 2024-08-22 09:30)
DX: M72.0 Palmar fascial fibromatosis [Dupuytren] (principal)
CPT/HCPCS: 26123

== ENCOUNTER 2024-08-29 13:17 | Outpatient (CLI) | payer OTHER, SELFPAY ==
[2024-08-29 13:28] LABS: Basophils Absolute Auto 0.1 K/mm3 (0.0-0.1); Basophils Percent Auto 0.4 % (0.2-1.2); Eosinophils Absolute Auto 0.2 K/mm3 (0-0.3); Eosinophils Percent Auto 1.6 % (0-4.4); Hematocrit 41.4 % (37.0-47.0); Hemoglobin 13.9 g/dL (12.0-15.0); Immature Granulocyte Absolute 0.09 K/mm3 (0.00-0.031); Immature Granulocyte Percent A 0.7 % (0-0.5); Lymphocytes Absolute Auto 1.87 K/mm3 (0.9-3.2); Lymphocytes Percent Auto 15.1 % (18.3-44.2); Mean Corpuscular HGB Conc 33.6 g/dl (32-36); Mean Corpuscular Hemoglobin 35.5 pg (26-34); Mean Corpuscular Volume 105.9 fl (80-100); Mean Platelet Volume 8.8 fl (7.4-10.4); Monocytes Absolute Auto 0.9 K/mm3 (0.1-0.6); Monocytes Percent Auto 7.5 % (2.6-8.5); Neutrophils Absolute Auto 9.3 K/mm3 (1.3-6.7); Neutrophils Percent Auto 74.7 % (45.5-73.1); Platelet Count Result 633 k/mm3 (150-375); Red Blood Count 3.91 M/mm3 (4.2-5.4); Red Cell Distribution Width 13.2 % (11.5-14.5); White Blood Count 12.4 K/mm3 (4.5-10.0)
[2024-08-29 16:33] LABS: Alanine Aminotransferase 16 U/L (6-35); Albumin Level 4.1 g/dL (3.5-5.1); Alkaline Phosphatase 59 U/L (38-126); Anion Gap 11 mmol/L (4-12); Aspartate Amino Transferase 28 U/L (14-36); Bilirubin,Total 0.8 mg/dL (0.2-1.3); Blood Urea Nitrogen 19 mg/dL (7-17); Calcium 9.5 mg/dL (8.4-10.2); Carbon Dioxide 23 mmol/L (22-30); Chloride 103 mmol/L (98-107); Estimated Glomerular Filt Rate > 60; Glucose 85 mg/dL (65-110); Potassium 4.3 mmol/L (3.4-5.0); Sodium 137 mmol/L (137-145)
--- OUTSIDE RECORDS SUMMARY | 2024-08-30 05:07 | XMS_ITS | Patient Health Summary ---
Author Organization [facility] Address [address] [place] [address] Care Team Providers Care Grinding And Polishing Laborer Name Role Phone Spenser Bae Armando DO Primary Care Provider [phone] Note from [facility],non-owned Affiliates and Associated Physician Practices is amultiple site organization consisting of ambulatory clinics and hospital sitesin [place], [place], [place] and [place]. This disclosure is being madepursuant to the Care Everywhere program and may not contain all information available regarding this patient. Last updated 18.[facility] Allergies No known active allergies Immunizations * TDAP (7yrs+)(Given 03/08/2018) Social History Tobacco Use Types Packs/Day Years Used Date Smoking Tobacco: Never Assessed Sex and Gender Information Value Date Recorded Sex Assigned at Not on file Gender Identity Not on file Sexual Orientation Not on file Procedures * DERMATOPATHOLOGY(Performed 03/28/2024) * CYTOLOGY SMEAR PAP THIN PREP(Performed 02/13/1998) Results * DERMATOPATHOLOGY (03/28/2024 12:00 AM CDT) Case Report Dermatopathology Report ? Case: [id number] ? Authorizing Provider: ??Rene Sanford MD ?Collected: ? 03/28/2024 12:00 AM ? Ordering Location: ? [facility] - ??Received: ?03/29/2024 07:31 AM ? DermPath Lab ? Pathologist: ? Anastasiya Cartagena MD ? Specimens: ?? A) - Skin, right clavicular ? B) - Skin, mid chest ? C) - Skin, right forearm ? 4 1:41 PM CDT DERMATOPATHOLOGY LABORATORY Final Diagnosis Specimen A. SKIN, right clavicular: SEBORRHEIC KERATOSIS (L82.1) Specimen B. SKIN, mid chest: 'ZHOU' ANGIOMA (D18.01) (see microscopic description) Specimen C. SKIN, right forearm: 'ZHOU' ANGIOMA (D18.01) 1:41 PM [facility] DERMATOPATHOLOGY LABORATORY Clinical History A: R/o ISK B-C: R/O Hemangioma 1:41 PM [facility] DERMATOPATHOLOGY LABORATORY Gross Description Specimen A: Received is one formalin filled container labeled with the patients name and designated right clavicular. The specimen consists of a shave removal measuring 9x6x2 mm. Jar 0. Specimen B: Received is one formalin filled container labeled with the patients name and designated mid chest. The specimen consists of a shave removal measuring 3x2x1 mm. Jar 0. Specimen C: Received is one formalin filled container labeled with the patients name and designated right forearm. The specimen consists of a shave removal measuring 6x5x2 mm. Jar 0. 1:41 PM [facility] DERMATOPATHOLOGY LABORATORY Microscopic Description Specimen A. SKIN, right clavicular: Sections show an acanthotic lesion composed of relatively uniform keratinocytes. There is hyperkeratosis and pseudo horn cysts formation. Specimen B. SKIN, mid chest: In the dermis, there are dilated vascular spaces surrounded by thin, widely spaced endothelial cells. Additional deeper sections were obtained and reviewed. Specimen C. SKIN, right forearm: In the dermis, there are dilated vascular spaces surrounded by thin, widely spaced endothelial cells. 1:41 PM [facility] DERMATOPATHOLOGY LABORATORY Disclaimer An external and internal positive and negative controls are appropriate for the histochemical, immunohistochemical and immunofluorescence stain(s) in this case (if any), except where stated explicitly. The performance characteristics of the stain(s) cited in this report were developed and its performance characteristic determined by the Dermatopathology Laboratory at [facility], directed by Dr. aKrol Jones. These tests need not be, and therefore are not, approved by the [place] Food and Drug Administration. The tests are used for clinical purposes. Billing Codes Specimen Charges Stain Charges 54247 [id number] 1 1 1 4 1:41 PM [facility] DERMATOPATHOLOGY LABORATORY Embedded Images 08/26/202 4 1:41 PM CDT DERMATOPATHOLOGY LABORATORY Pathology/Cytology TISSUE SPECIMEN FROM SKIN / Unknown 03/28/2024 03/29/2024 7:31 AM CDT Miscellaneous samples (specimen) TISSUE SPECIMEN FROM SKIN / Unknown 03/28/2024 03/29/2024 7:31 AM CDT Miscellaneous samples (specimen) TISSUE SPECIMEN FROM SKIN / Unknown 03/28/2024 03/29/2024 7:31 AM CDT Rene Sanford MD LAB - PATHOLOGY/CYTO LOGY ORDERABLES DERMATOPATHOLOGY LABORATORY [facility] - Department of Dermatology [address], [address] [phone] * CYTOLOGY SMEAR PAP THIN PREP (02/13/1998 1:16 PM CDT) Result CASE NUMBER [id number] Comment: ORDERING PHYSICIAN ??MICAH BRITT SPECIMEN TYPE ?PAP Smear Date ? 02/16/1998 Procedure ?Cervical/Endocervical, 1 Vial for Thin Prep Received Specimen Adequacy ?Satisfactory for Evaluation Categorization ? Benign Cellular Changes Comment ?Hyperkeratosis Present. Snomed. ?02/23/1998 1525 <1> Dispute Resolution Analyst ? Lillie Hernández(ASCP) PAP Footnote ? The PAP smear is only a screening procedure to aid in the detection of cervical cancer and its precursors. ??It is not a diagnostic procedure and should not be used as the sole means to detect cervical cancer. ??Both false negative and false positive results have been experienced. MISCELLANEOUS SAMPLES / Unknown 02/13/1998 1:16 PM CDT 02/19/1998 1:16 PM CDT Historical Provider LAB - PATHOLOGY/C YTOLOGY ORDERABLES Care Teams Grinding And Polishing Laborer Relationship Specialty Start Date End Date Spenser Bae DO [address] [facility] [address] [place] [address] PCP - General 08/25/21
--- OUTSIDE RECORDS SUMMARY | 2024-08-30 05:07 | XMS_ITS | Clinical Summary ---
[facility] Address [address] [address] Care Team Providers Care Side Guider Name Role Phone Sahil Diego DO Primary Care Provider [phone] Allergies No known active allergies Medications ergocalciferol (VITAMIN D2) 50,000 unit capsule Take 50,000 Units by mouth. Active hydroxyurea (HYDREA) 500 mg capsule Take 1 Capsule (500 mg) by mouth daily. 90 Capsule 3 11/21/2023 Active allopurinoL (ZYLOPRIM) 300 mg tablet Take 1 Tablet (300 mg) by mouth daily. 90 Tablet 3 11/21/2023 Active cholecalciferol , Vitamin D3, (VITAMIN D3) 25 mcg (1,000 unit) Capsule Take 1,000 Units by mouth daily. Active calcium citrate-vitamin d3 (CITRACAL D MAX) 315 mg-6.25 mcg (250 unit) Tablet Take 2 Tablets by mouth daily. Active Active Problems No known active problems Encounters Date Type Department Care Team Description 06/04/2024 2:30 PM CDT Office Visit [facility] Oncology and Hematology - [place] [address] [place] [address] Noé Curry MD Essential thrombocytosis (CMS/HCC) (Primary Dx) from Last 3 Months Family History Medical History Relation Name Comments Diabetes Father No Known Problems Mother No Known Problems Sister No Known Problems Son Relation Name Status Comments Daughter adopted Father Mother Alive Sister Alive Son Alive Social History Tobacco Use Types Packs/Day Years Used Date Smoking Tobacco: Never Tobacco Cessation:Counseling Given: Not Answered Alcohol Use Standard Drinks/Week Comments Never 0 (1 standard drink = 0.6 oz pur e alcohol) Comments Unknown Sex and Gender Information Value Date Recorded Sex Assigned at Not on file Legal Sex Female 1:48 PM CDT Gender Identity Not on file Sexual Orientation Not on file Last Filed Vital Signs Vital Sign Reading Time Taken Comments Blood Pressure 136/69 06/04/2024 2:24 PM CDT Pulse 79 06/04/2024 2:20 PM CDT Temperature 36.6 ??C (97.8 ??F) 06/04/2024 2:20 PM CD T Respiratory Rate 16 06/04/2024 2:20 PM CDT Oxygen Saturation 96% 06/04/2024 2:20 PM CDT Inhaled Oxygen Concentration - - Weight 64.9 kg (143 lb) 06/04/2024 2:20 PM CDT Height 160 cm (5' 3 ) 06/12/2023 1:34 PM COMPUTER SYSTEMS SECURITY ADMINISTRATOR Body Mass Index 25.33 06/12/2023 1:34 PM COMPUTER SYSTEMS SECURITY ADMINISTRATOR Plan of Treatment Upcoming Encounters Date Type Department Care Team (Late st Contact Info) Description 09/10/2024 1:00 PM COMPUTER SYSTEMS SECURITY ADMINISTRATOR Office Visit [facility] Oncology and Hematology [facility] [address] [place] [address] [address] [place] [address] Noé Curry MD [address] [facility] [address] [place] [address] Health Maintenance Due Date Last Done Comments Pre-Diabetes and Diabetes Screening 1955 COLORECTAL SCREENING 1999 Colorectal Cancer Screening 1999 FIT-DNA Q 3 years 1999 FIT/FOBT Q 1 year 1999 Flex Sig/CT Colonography Q 5 years 1999 PNEUMOCOCCAL VACCINE 65+ YEA RS (1 of 1 - PCV) 2004 ZOSTER VACCINE (1 of 2) 2004 INFLUENZA VACCINE (#1) 2024 BREAST CANCER SCREENING 03/14/2024 03/14/20 23, 04/12/2022, 04/05/2022, Additional history exists Preventative Visit- Commercial 08/07/2024 DTAP/TDAP/TD VACCINES (2 - T d or Tdap) 03/08/2028 03/08/2018 RSV VACCINE (60+ or ) (1 - 1-dose 75+ series) 2029 OSTEOPOROSIS SCREENING Completed 4, 11/02/2023, 10/17/2022, Additional history exists Insurance [employer] CHOICE POS II Care Teams Side Guider Relationship Specialty Start Date End Date Sahil Diego DO [address] [facility] [address] [place] [address] PCP - General Internal Medicine 06/04/24
--- OUTSIDE RECORDS SUMMARY | 2024-08-30 05:07 | XMS_ITS | Encounter Summary ---
Author Organization [facility] Address [address] [place] [address] Care Team Providers Care Director Organizational Name Role Phone Spenser Bae Primary Care Provider [phone] Encounter Details Date Type Department Care Team (Late st Contact Info) Description 03/28/2024 Lab Requisition [facility] - DermPath Lab [address] [facility] [place] [id number] Rene Sanford MD [address] [place] [address] Social History Tobacco Use Types Packs/Day Years Used Date Smoking Tobacco: Never Assessed Sex and Gender Information Value Date Recorded Sex Assigned at Not on file Gender Identity Not on file Sexual Orientation Not on file documented as of this encounter Plan of Treatment Not on file documented as of this encounter Procedures Procedure Name Priority Date/Time Associated Diagnosis Comments DERMATOPATHOLOGY Routine 03/28/2024 12:0 0 AM CDT documented in this encounter Results * DERMATOPATHOLOGY (03/28/2024 12:00 AM CDT) Case Report Dermatopathology Report ? Case: [id number] ? Authorizing Provider: ??Vicik, Rene, MD ?Collected: ? 03/28/2024 12:00 AM ? Ordering Location: ? [facility] - ??Received: ?03/29/2024 07:31 AM ? DermPath Lab ? Pathologist: ? Anastasiya Cartagena, MD ? Specimens: ?? A) - Skin, right clavicular ? B) - Skin, mid chest ? C) - Skin, right forearm ? 4 1:41 PM CDT DERMATOPATHOLOGY LABORATORY Final Diagnosis Specimen A. SKIN, right clavicular: SEBORRHEIC KERATOSIS (L82.1) Specimen B. SKIN, mid chest: 'ZHOU' ANGIOMA (D18.01) (see microscopic description) Specimen C. SKIN, right forearm: 'ZHOU' ANGIOMA (D18.01) 1:41 PM [facility] DERMATOPATHOLOGY LABORATORY Clinical History A: R/o ISK B-C: R/O Hemangioma 1:41 PM [facility] DERMATOPATHOLOGY LABORATORY Gross Description Specimen A: Received [...] measuring 6x5x2 mm. Jar 0. 1:41 PM [facility] DERMATOPATHOLOGY LABORATORY Microscopic Description Specimen A. SKIN, [...] thin, widely spaced endothelial cells. 1:41 PM [facility] DERMATOPATHOLOGY LABORATORY Disclaimer An external and internal positive and negative controls are appropriate for the histochemical, immunohistochemical and immunofluorescence stain(s) in this case (if any), except where stated explicitly. The performance characteristics of the stain(s) cited in this report were developed and its performance characteristic determined by the Dermatopathology Laboratory at [facility], directed by Dr. Karol Jones. These tests need not be, and therefore are not, approved by the [place] Food and Drug Administration. The tests are used for clinical purposes. Billing Codes Specimen Charges Stain Charges 72729 25050 71539 1 1 1 08/26/202 4 1:41 PM CDT DERMATOPATHOLOGY LABORATORY Embedded Images 4 1:41 PM CDT DERMATOPATHOLOGY LABORATORY Pathology/Cytology TISSUE SPECIMEN FROM SKIN / Unknown 03/28/2024 03/29/2024 7:31 AM CDT Miscellaneous samples (specimen) TISSUE SPECIMEN FROM SKIN / Unknown 03/28/2024 03/29/2024 7:31 AM CDT Miscellaneous samples (specimen) TISSUE SPECIMEN FROM SKIN / Unknown 03/28/2024 03/29/2024 7:31 AM CDT Rene Sanford MD LAB - PATHOLOGY/CYTO LOGY ORDERABLES DERMATOPATHOLOGY LABORATORY [facility] - Department of Dermatology [facility] Medicine [address] [place] [address], [address] [phone] documented in this encounter Visit Diagnoses Not on filedocumented in this encounter Care Teams Director Organizational Relationship Specialty Start Date End Date Spenser Bae DO [address] [facility] [address] [place] [address] PCP - General 08/25/21 documented as of this encounter
--- OUTSIDE RECORDS SUMMARY | 2024-08-30 05:07 | XMS_ITS | Clinical Summary ---
Author Organization [facility] [employer] Address [address] [place] [address] Care Team Providers Care Consulting Practice Manager Name Role Phone Cesean Spenser Roberts DO Primary Care Provider Source Comments [facility] [employer],non-owned Affiliates and Associated Physician Practices is amultiple site organization consisting of ambulatory clinics and hospital sitesin [place], [place], [place] and [place]. This disclosure is being madepursuant to the Care Everywhere program and may not contain all information available regarding this patient. Last updated 18.[facility] [employer] Allergies No known active allergies Immunizations Name Administration Dates Next Due TDAP (7yrs+) 03/08/2018 Social History Tobacco Use Types Packs/Day Years Used Date Smoking Tobacco: Never Assessed Sex and Gender Information Value Date Recorded Sex Assigned at Not on file Gender Identity Not on file Sexual Orientation Not on file Plan of Treatment Health Maintenance Due Date Last Done Comments BONE DENSITY TESTING 1955 COLOGUARD (AGES 45-75) - COL ON CA SCREENING 1954 COLON MONITORING 1954 COLONOSCOPY - COLON CA SCREENING 1954 CT COLONOGRAPHY - COLON CA SCREENING 1954 Colorectal Cancer Screening 1954 FIT - COLON CA SCREENING 1954 FLEX SIG - COLON CA SCREENING 1954 LIPID TESTING 1955 MAMMOGRAM 1955 HEPATITIS C SCREENING 09/19/1972 PNEUMOCOCCAL VACCINE 50+ (1 of 1 - PCV) 2004 ZOSTER VACCINE (1 of 2) 2004 COVID-19 VACCINE (1 - 2023-2 5 season) 2024 INFLUENZA VACCINE (#1) 2024 DEPRESSION SCREENING 08/07/2024 DTAP/TDAP/TD VACCINES (2 - T d or Tdap) 03/08/2028 03/08/2018 Respiratory Syncytial Virus (RSV) Vaccine Pt: or over 60 yrs (1 - 1-dose 75+ series) 2029 HEPATITIS B VACCINE Aged Out No longe r eligible based on patient's age to complete this topic HIB VACCINE Aged Out No longer eligi ble based on patient's age to complete this topic HPV VACCINE Aged Out No longer eligi ble based on patient's age to complete this topic MENINGOCOCCAL (Group B) VACCINE Aged Out No longer eligible based on patient's age to complete this topic MENINGOCOCCAL VACCINE Aged Out No aretha jeanna eligible based on patient's age to complete this topic Care Teams Consulting Practice Manager Relationship Specialty Start Date End Date Spenser Bae DO [address] [facility] [address] [place] [address] PCP - General 08/25/21
--- OUTSIDE RECORDS SUMMARY | 2024-08-30 05:07 | XMS_ITS | Referral Summary ---
Author Organization [facility] [employer] Address [address] [place] [address] Care Team Providers Care Head Of Transport Logistics Name Role Phone Spenser Bae Armando TORRES Primary Care Provider [phone] Source Comments [facility] [employer],non-owned Affiliates and Associated Physician Practices is amultiple site organization consisting of ambulatory clinics and hospital sitesin [place], [place], [place] and [place]. This disclosure is being madepursuant to the Care Everywhere program and may not contain all information available regarding this patient. Last updated 18.[facility] [employer] Allergies No known active allergies Immunizations Name Administration Dates Next Due TDAP (7yrs+) 03/08/2018 Social History Tobacco Use Types Packs/Day Years Used Date Smoking Tobacco: Never Assessed Sex and Gender Information Value Date Recorded Sex Assigned at Not on file Gender Identity Not on file Sexual Orientation Not on file Plan of Treatment Not on file Care Teams Head Of Transport Logistics Relationship Specialty Start Date End Date Spenser Bae DO [address] [facility] [address] [place] [address] PCP - General 08/25/21
--- OUTSIDE RECORDS SUMMARY | 2024-08-30 05:07 | XMS_ITS | Referral Summary ---
Author Organization [facility] Address [address] [place] [address] Care Team Providers Care Precision Aircraft Structure Assembler Name Role Phone Ag Toribio MD Unavailable [phone] Sahil Diego DO Primary Care Provider [phone] Encounters Date Type Department Care Team Description 06/26/2024 11:15 AM ENTERPRISE SYSTEMS MANAGER Infusion [facility] Injection Therapy [address] [facility] [address] [place] [address] Age-related osteoporosis without current pathological fracture (Primary Dx) 06/19/2024 7:10 AM ENTERPRISE SYSTEMS MANAGER - 06/19/2024 11:59 PM ENTERPRISE SYSTEMS MANAGER Hospital Encounter [facility] [address] [facility] [address] [place] [address] [address] [place], [place] [id number] Screening mammogram, encounter for Discharge Disposition: Discharge to home or self care from Last 3 Months Allergies No known active allergies Medications multivitamin capsule Take 1 capsule by mouth daily Active calcium citrate/vitamin D3 (CITRACAL REGULAR ORAL) Take by mouth Ac tive estradioL (ESTRACE) 0.01 % (0.1 mg/gram) vaginal cream estradiol 0.01% (0.1 mg/gram) vaginal cream Active cholecalciferol (VITAMIN D-3) 1,000 unit capsule Take 1 capsule (1,000 Units total) by mouth daily Active denosumab (PROLIA) 60 mg/mL syringeIndication s:postmenopausal osteoporosis and high fracture risk Inject 1 mL (60 mg total) under the skin once for 1 dose 1 mL 2 Active ergocalciferol (VITAMIN D) 50,000 unit capsule Take 1 capsule (50,000 Units total) by mouth every 30 (thirty) days 12 capsule 3 Active allopurinoL (ZYLOPRIM) 300 mg tablet Take 1 tablet (300 mg total) by mouth daily 4 Active aspirin 81 mg enteric coated tablet Take 1 tablet (81 mg total) by mouth daily Active hydroxyurea (HYDREA) 500 mg capsule Take 1 capsule (500 mg total) by mouth daily 4 Active Active Problems Problem Noted Date Diagnosed Date Age-related osteoporosis wit hout current pathological fracture 05/23/2019 Abnormal mammogram of right breast 10/26/2018 Social History Tobacco Use Types Packs/Day Years Used Date Smoking Tobacco: Never Smokeless Tobacco: Never Tobacco Cessation:Counseling Given: Not Answered Alcohol Use Standard Drinks/Week Comments Never 0 (1 standard drink = 0.6 oz pur e alcohol) AUDIT-C Answer Date Recorded Frequency of Alcohol Consumption Never 07/21/2020 Average Number of Drinks Not on file 020 Frequency of Binge Drinking Not on file 07/07 Comments No Sex and Gender Information Value Date Recorded Sex Assigned at Not on file Legal Sex Female 4:59 AM ENTERPRISE SYSTEMS MANAGER Gender Identity Not on file Sexual Orientation Not on file Last Filed Vital Signs Vital Sign Reading Time Taken Comments Blood Pressure 136/75 09/01/2020 12:05 PM ENTERPRISE SYSTEMS MANAGER Pulse 74 09/01/2020 12:05 PM ENTERPRISE SYSTEMS MANAGER Temperature 36.9 ??C (98.4 ??F) 09/01/2020 12:[address] Respiratory Rate 14 02/19/2019 9:20 AM CDT Oxygen Saturation 100% 02/19/2019 9:20 AM CDT Inhaled Oxygen Concentration - - Weight 63.2 kg (139 lb 4.8 oz) 11/02/2023 8:17 A M CDT Height 160.7 cm (5' 3.25 ) 11/02/2023 8:17 AM CD T Body Mass Index 24.48 11/02/2023 8:17 AM CDT Plan of Treatment Not on file Procedures Procedure Name Priority Date/Time Associated Diagnosis Comments SCREENING MAMMOGRAM BILATERAL W ARGELIA Schedule Routine, Read Routine (OP Routine) 06/19/2024 7:21 AM ENTERPRISE SYSTEMS MANAGER Screening mammogram, encounter for DEXA TBS AXIAL SKELETON BONE DENSITY 1 OR MORE SITES Schedule Routine, Read Routine (OP Routine) 11/02/2023 8:15 AM CDT Age-related osteoporosis without current pathological fracture Vitamin D deficiency from Last 3 Months or Most Recently Relevant to Health Maintenance Results * Screening Mammogram Bilateral W Argelia (06/19/2024 7:21 AM ENTERPRISE SYSTEMS MANAGER) Anatomical Region Laterality Modality Breast Bilateral Mammography Impressions 06/19/2024 8:30 AM ENTERPRISE SYSTEMS MANAGER BI-RADS?? ATLAS category (overall): 2 - Benign There is no mammographic evidence of malignancy. A 1 year screening mammogram is recommended. The patient has been or will be contacted. We recommend annual screening mammography for women at average risk of breast cancer beginning at age 40, based on guidelines of the [place] [employer] (ACR Practice Parameter for the Performance of Screening and Diagnostic Mammography) and [place]. For women with and elevated risk of breast cancer, please refer to the ACR Practice Parameter for specific screening recommendations. The patient will be entered into a reminder system with a target due date of 1 year for her next screening exam. Narrative 06/19/2024 8:30 AM ENTERPRISE SYSTEMS MANAGER Screening Mammogram Bilateral W Argelia: 06/19/24 The study was acquired using full field digital technology and interpreted from soft copy. 2D digital mammographic views, as well as 3D digital tomosynthesis were performed in the CC and MLO projections. CLINICAL: ??Screening mammogram, encounter for. ??No relevant medical history has been documented for this patient. ??History of breast cancer in Mother's Sister. COMPARISONS: 03/14/2023 Screening Mammogram Bilateral W Argelia 04/12/2022 Diagnostic Mammogram 2D Left 04/05/2022 Screening Mammogram Bilateral W Argelia 03/30/2021 Screening Mammogram Bilateral W Argelia 03/25/2020 Screening Mammogram Bilateral W Argelia BREAST TISSUE: The breasts are heterogeneously dense, which may obscure small masses. FINDINGS: There are stable postoperative changes in the right breast. There are unchanged benign calcifications in the left breast. There is a biopsy clip in the left breast. There is no new suspicious finding in either breast on mammogram. us Self Screening Mammogram IMG MAMMO PROCEDURES Fi nal Result * Dexa TBS Axial Skeleton Bone Density 1 or more sites (11/02/2023 8:15 AM CDT) Anatomical Region Laterality Modality Wrist, Body N/A Radiographic Violeta ging Narrative 11/13/2023 8:28 AM CDT Patient Name: Mariluz Stephen Date of : 1955 Date of scan: 11/02/2023 Bone mineral density was performed on a Holvi Discovery Densitometer. ?? Based on machine cross-calibration and precision studies the least significant changes of this densitometer is 0.024 g/cm2 at the spine, 0.020 g/cm2 at the total proximal femur, and 0.014g/cm2 at the forearm. HISTORY: This is a 68 y.o. postmenopausal female with a history of osteoporosis and vitamin D deficiency. She reports that she has never smoked. She has never used smokeless tobacco. Currently on treatment with calcium, vitamin D, and denosumab (Prolia), previously treated with alendronate (Fosamax), zoledronic acid (Reclast), and hormone replacement therapy, and current complaint of neck pain. INDICATIONS: Menopause status, treatment monitoring, vitamin D deficiency, and history of osteoporosis. FINDINGS: BONE MINERAL DENSITY OF THE LUMBAR SPINE Bone Mineral Density (BMD) of the lumbar spine was measured from L1-L4 and the average density was calculated to be 0.991 gm/cm2. This corresponds to a T-score (standard deviations from the mean of young adults) of -0.5. When compared to the previous study of 10/17/2022 there has been a 0.021 gm/cm (2.2%) increase in bone density that is considered significant. BONE MINERAL DENSITY OF THE PROXIMAL FEMUR Bone Mineral Density (BMD) of the right hip total was found to be 0.745 gm/cm2. This corresponds to a T-score standard deviations from the mean of young adults of -1.6. Femoral neck is 0.596 gm/cm2 with a T-score (standard deviations from the mean of young adults) of -2.3. When compared to the previous study of 10/17/2022 there has been no significant changes in bone density. SUMMARY: Bone mineral density shows evidence of low bone mass at the proximal femur and moderately increased fracture risk (Osteopenia). There has been a significant increase in bone density since previous measurement. The lumbar spine Trabecular Bone Score is 1.427 which suggests ??normal bone microarchitecture, compared to the general population. Final decisions regarding diagnostic or therapeutic recommendations should include BMD, TBS, additional clinical risk factors as well the clinical context of the patient. ?? Please see attached TBS results for further details. ADDITIONAL COMMENTS: Postmenopausal Women and Men Over 50: Diagnostic criteria: Osteoporosis: BMD at or below -2.5 T-score; Osteopenia (low bone mass): BMD between -1.0 and -2.5 T-score. If the patient has a history of a fragility fracture, a fracture that occurred with trauma equivalent to a fall from a standing position or less, then the diagnosis is osteoporosis regardless of bone density. The history and data sections of the bone mineral density scan were prepared by Chetna Cruz(Bam) CYNDI ??who is accredited by the International Society of Clinical Densitometry. The overall patient assessment and scan interpretation were performed by Lisa Herndon MD ??who is certified by the International Society of Clinical Densitometry. [id number] [facility] DXA PROCEDURES Final Result from Last 3 Months or Most Recently Relevant to Health Maintenance [facility] MEDICARE Care Teams Precision Aircraft Structure Assembler Relationship Specialty Start Date End Date Sahil Diego DO [address] [place], [place] [id number] PCP - General Internal Medicine 04/04/24 Ag Toribio MD [address] [place] [address] Referring Physician Obstetrics and Gynecology 04/05/22
--- OUTSIDE RECORDS SUMMARY | 2024-08-30 05:07 | XMS_ITS | Clinical Summary ---
Author Organization [facility] Address [facility] [place] [address] Care Team Providers Care Commercial Collector Name Role Phone Ag Toribio MD Unavailable [phone] Sahil Diego DO Primary Care Provider [phone] Allergies No known active allergies Medications multivitamin [...] 05/23/2019 Abnormal mammogram of right breast 10/26/2018 Encounters Date Type Department Care Team Description 06/26/2024 11:15 AM NAPPER FIXER Infusion [facility] Injection Therapy [address] [facility] [address] [place] [address] Age-related osteoporosis without current pathological fracture (Primary Dx) 06/19/2024 7:10 AM NAPPER FIXER - 06/19/2024 11:59 PM NAPPER FIXER Hospital Encounter [facility] Bldg 1 Breast [facility] [address] [facility] [address] [place] [address] Screening mammogram, encounter for Discharge Disposition: Discharge to home or self care from Last 3 Months Surgical History Surgery Date Site/Laterality Comments SECTION 08/07/1991 - 08/06/1992 BREAST BIOPSY 08/07/2013 - 08/06/2014 Left benign BREAST BIOPSY 11/26/2018 Right BREAST BIOPSY SECTION 26 years ago CATARACT EXTRACTION 08/07/2018 - 08/06/2019 Right LAPAROSCOPY CATARACT EXTRACTION 08/07/2017 - 08/06/2018 Right EYE SURGERY 08/07/2013 - 08/06/2014 Right 2015 macular puckering Medical History Medical History Date Comments Osteoporosis Macular puckering Cataract Tinnitus bilateral Family History Medical History Relation Name Comments Broken bones Mother Osteoporosis Mother Family history of osteoporosis - (Added by TW Conv) Other Mother Fractures - (Ad ded by TW Conv) Breast cancer Mother's Sister Osteoporosis Other 1 Family history of osteoporosis - Relation: Grandmother (Added by TW Conv) Curvature of spine Other 2 Curvature of spine - Relation: Grandmother (Added by TW Conv) Hip fracture Neg Hx Relation Name Status Comments Father Mother Alive Mother's Sister Other 1 Other 2 Social History Tobacco Use Types Packs/Day Years [...] on file Legal Sex Female 4:59 AM NAPPER FIXER Gender Identity Not on file Sexual Orientation Not on file Obstetrics History Para Term AB IAB SAB Ectopic Multiple Livin g Live Births 1 Date Outcome GA Total Labor Labor/2nd/3rd Weight Sex Type Anes PTL Ida A1 A5 Name Clin Last Filed Vital Signs Vital Sign Reading Time Taken Comments Blood Pressure 136/75 09/01/2020 12:05 PM NAPPER FIXER Pulse 74 09/01/2020 12:05 PM NAPPER FIXER Temperature 36.9 ??C (98.4 ??F) 09/01/2020 12:[address] Respiratory Rate 14 02/19/2019 9:20 AM CDT Oxygen Saturation 100% 02/19/2019 9:20 AM CDT Inhaled Oxygen Concentration - - Weight 63.2 kg (139 lb 4.8 oz) 11/02/2023 8:17 A M CDT Height 160.7 cm (5' 3.25 ) 11/02/2023 8:17 AM CD T Body Mass Index 24.48 11/02/2023 8:17 AM CDT Plan of Treatment Health Maintenance Due Date Last Done Comments Colon Cancer Screening-Colonoscopy 1955 Depression Screening 1954 Fall Risk Assessment 1954 Hepatitis C Screening 1954 Pneumococcal vaccine 65+ (1 of 2 - PCV) 1960 Hepatitis B Screening 1972 Zoster Vaccine (1 of 2) 1973 Well Visit 65+ 2019 Influenza Vaccine (#1) 2024 Breast Cancer Screening-Mammogram 06/19/2025 06/19/2024, 03/14/2023, 03/14/2023, Additional history exists Osteoporosis Screening-Bone Density Scan 11/01/2025 11/02/2023, 11/02/2023, 10/17/2022, Additional history exists DTaP/Tdap/Td Vaccine (2 - Td or Tdap) 03/08/2028 03/08/2018 Procedures Procedure Name Priority Date/Time Associated Diagnosis Comments SCREENING MAMMOGRAM BILATERAL W ARGELIA Schedule Routine, Read Routine (OP Routine) 06/19/2024 7:21 AM NAPPER FIXER Screening mammogram, encounter for DEXA TBS AXIAL SKELETON BONE DENSITY 1 OR MORE SITES Schedule Routine, Read Routine (OP Routine) 11/02/2023 8:15 AM CDT Age-related osteoporosis without current pathological fracture Vitamin D deficiency from Last 3 Months or Most Recently Relevant to Health Maintenance Results * Screening Mammogram Bilateral W Argelia (06/19/2024 7:21 AM NAPPER FIXER) Anatomical Region Laterality Modality Breast Bilateral Mammography Impressions 06/19/2024 8:30 AM NAPPER FIXER BI-RADS?? ATLAS category (overall): 2 - Benign There is no mammographic evidence of malignancy. A 1 year screening mammogram is recommended. The patient has been or will be contacted. We recommend annual screening mammography for women at average risk of breast cancer beginning at age 40, based on guidelines of the [place] [employer] (ACR Practice Parameter for the Performance of Screening and Diagnostic Mammography) and [place] [employer]nec[employer]. For women with and elevated risk of breast cancer, please refer to the ACR Practice Parameter for specific screening recommendations. The patient will be entered into a reminder system with a target due date of 1 year for her next screening exam. Narrative 06/19/2024 8:30 AM NAPPER FIXER Screening Mammogram Bilateral W Argelia: 06/19/24 The [...] Bone mineral density was performed on a HoloAureliant Discovery Densitometer. ?? Based on machine cross-calibration [...] mineral density scan were prepared by Chetna Richmond) CYNDI ??who is accredited by the International Society of Clinical Densitometry. The overall patient assessment and scan interpretation were performed by Lisa Herndon MD ??who is certified by the International Society of Clinical Densitometry. [id number] Luli Rai [facility] DXA PROCEDURES Final Result from Last 3 Months or Most Recently Relevant to Health Maintenance [facility] GENER[facility] COPAY ASSIST [facility] [place] [address] Care Teams Commercial Collector Relationship Specialty Start Date End Date Sahil Diego DO [address] [place] [address] PCP - General Internal Medicine 04/04/24 Ag Toribio MD [address] [place] [address] Referring Physician Obstetrics and Gynecology 04/05/22
== END 2024-08-29 13:18 | disposition home or self-care (01) ==
LOC: ANHLAB 13:17
PROVIDERS: PCP Internal Medicine; Visit Provider Internal Medicine Hematology & Oncology
DX: D47.3 Essential (hemorrhagic) thrombocythemia (principal)
CPT/HCPCS: 36415; 80053; 85025

== ENCOUNTER 2025-01-15 09:16 | Outpatient (CLI) | payer OTHER, SELFPAY ==
[2025-01-15 09:27] LABS: Hematocrit 43.1 % (37.0-47.0); Hemoglobin 14.7 g/dL (12.0-15.0); Mean Corpuscular HGB Conc 34.1 g/dl (32-36); Mean Corpuscular Hemoglobin 35.2 pg (26-34); Mean Corpuscular Volume 103.1 fl (80-100); Mean Platelet Volume 8.8 fl (7.4-10.4); Platelet Count Result 604 k/mm3 (150-375); Red Blood Count 4.18 M/mm3 (4.2-5.4); Red Cell Distribution Width 13.2 % (11.5-14.5); White Blood Count 12.9 K/mm3 (4.5-10.0)
--- OUTSIDE RECORDS SUMMARY | 2025-01-15 10:01 | XMS_ITS | Clinical Summary ---
Author Organization [facility] Address [facility] [place] [address] Care Team Providers Care Perpetual Inventory Clerk Name Role Phone Ag Toribio MD Unavailable [phone] Sahil Diego DO Primary Care Provider Allergies No known active allergies Medications multivitamin [...] for 1 dose 1 mL 2 Active allopurinoL (ZYLOPRIM) 300 mg tablet Take 1 tablet (300 mg total) by mouth daily 4 Active aspirin 81 mg enteric coated tablet Take 1 tablet (81 mg total) by mouth daily Active hydroxyurea (HYDREA) 500 mg capsule Take 1 capsule (500 mg total) by mouth daily 4 Active ergocalciferol (VITAMIN D) 50,000 unit capsule Take 1 capsule (50,000 Units total) by mouth every 30 (thirty) days 12 capsule 5 11/23/19 26 Active Active Problems Problem Noted Date Diagnosed Date Age-related osteoporosis wit hout current pathological fracture 05/23/2019 Abnormal mammogram of right breast 10/26/2018 Encounters Date Type Department Care Team Description 12/31/2024 11:00 AM CDT Infusion [facility] Injection Therapy 10 [facility] Medical Office Building [address] [place] [address] Age-related osteoporosis without current pathological fracture (Primary Dx) from Last 3 Months Surgical History Surgery [...] on file Legal Sex Female 4:59 AM LICENSED SALES PRODUCER Gender Identity Not on file Sexual Orientation Not on file Obstetrics History Para Term AB IAB SAB Ectopic Multiple Livin g Live Births 1 Date Outcome GA Total Labor Labor/2nd/3rd Weight Sex Type Anes PTL Ida A1 A5 Name Clin Last Filed Vital Signs Vital Sign Reading Time Taken Comments Blood Pressure 136/75 09/01/2020 12:05 PM LICENSED SALES PRODUCER Pulse 74 09/01/2020 12:05 PM LICENSED SALES PRODUCER Temperature 36.9 C (98.4 F) 09/01/2020 12:05 PM LICENSED SALES PRODUCER Respiratory Rate 14 02/19/2019 9:20 AM CDT Oxygen Saturation 100% 02/19/2019 9:20 AM CDT Inhaled Oxygen Concentration - - Weight 63.2 kg (139 lb 4.8 oz) 11/02/2023 8:17 A M CDT Height 160.7 cm (5' 3.25) 11/02/2023 8:17 AM CD T Body Mass Index 24.48 11/02/2023 8:17 AM CDT Plan of Treatment Health Maintenance Due Date Last Done Comments Colon Cancer Screening-Colonoscopy 1954 Depression Screening 1954 Fall Risk Assessment 1954 Hepatitis C Screening 1954 Hepatitis B Screening 1972 Pneumococcal vaccine 65+ (1 of 2 - PCV) 1973 Zoster Vaccine (1 of 2) 1973 Well Visit 65+ 2019 Influenza Vaccine (Season Ended) 2025 Breast Cancer Screening-Mammogram 06/19/2025 06/19/2024, 03/14/2023, 03/14/2023, Additional history exists Osteoporosis Screening-Bone Density Scan 11/01/2025 11/02/2023, 11/02/2023, 10/17/2022, Additional history exists DTaP/Tdap/Td Vaccine (2 - Td or Tdap) 03/08/2028 03/08/2018 Procedures Procedure Name Priority Date/Time Associated Diagnosis Comments SCREENING MAMMOGRAM BILATERAL W ARGELIA Schedule Routine, Read Routine (OP Routine) 06/19/2024 7:21 AM LICENSED SALES PRODUCER Screening mammogram, encounter for DEXA TBS AXIAL SKELETON BONE DENSITY 1 OR MORE SITES Schedule Routine, Read Routine (OP Routine) 11/02/2023 8:15 AM CDT Age-related osteoporosis without current pathological fracture Vitamin D deficiency from Last 3 Months or Most Recently Relevant to Health Maintenance Results * Screening Mammogram Bilateral W Argelia (06/19/2024 7:21 AM LICENSED SALES PRODUCER) Anatomical Region Laterality Modality Breast Bilateral Mammography Impressions 06/19/2024 8:30 AM LICENSED SALES PRODUCER BI-RADS ATLAS category (overall): 2 - Benign There is no mammographic evidence of malignancy. A 1 year screening mammogram is recommended. The patient has been or will be contacted. We recommend annual screening mammography for women at average risk of breast cancer beginning at age 40, based on guidelines of the [place] [employer] (ACR Practice Parameter for the Performance of Screening and Diagnostic Mammography) and [place] [employer]. For women with and elevated risk of breast cancer, please refer to the ACR Practice Parameter for specific screening recommendations. The patient will be entered into a reminder system with a target due date of 1 year for her next screening exam. Narrative 06/19/2024 8:30 AM LICENSED SALES PRODUCER Screening Mammogram Bilateral W Argelia: 06/19/24 The study was acquired using full field digital technology and interpreted from soft copy. 2D digital mammographic views, as well as 3D digital tomosynthesis were performed in the CC and MLO projections. CLINICAL: Screening mammogram, encounter for. No relevant medical history has been documented for this patient. History of breast cancer in Mother's Sister. COMPARISONS: [...] Bone mineral density was performed on a HoloGeneraytor Discovery Densitometer. Based on machine cross-calibration and precision studies [...] Trabecular Bone Score is 1.427 which suggests normal bone microarchitecture, compared to the general population. Final decisions regarding diagnostic or therapeutic recommendations should include BMD, TBS, additional clinical risk factors as well the clinical context of the patient. Please see attached TBS results for further [...] scan were prepared by Chetna Richmond) CYNDI who is accredited by the International Society of Clinical Densitometry. The overall patient assessment and scan interpretation were performed by Lisa Herndon MD who is certified by the International Society of Clinical Densitometry. [id number] Luli Rai [facility] IM DXA PROCEDURES Final Result from Last 3 Months or Most Recently Relevant to Health Maintenance Insurance [facility] HMO GENERIC COPAY ASSIST [facility] MEDICARE Care Teams Perpetual Inventory Clerk Relationship Specialty Start Date End Date Sahil Diego DO [address] [place], [place] [id number] PCP - General Internal Medicine 04/04/24 Ag Toribio MD [address] [place] [address] Referring Physician Obstetrics and Gynecology 04/05/22
--- OUTSIDE RECORDS SUMMARY | 2025-01-15 10:01 | XMS_ITS | Encounter Summary ---
Author Organization [facility] Address [address] [place] [address] Care Team Providers Care Analyst Business Analysis Name Role Phone Spenser Bae DO Primary Care Provider [phone] Encounter Details Date Type Department Care Team (Late st Contact Info) Description 03/28/2024 Lab Requisition [facility] - DermPath Lab [address] [place] [address] Rene Sanford MD [address] [place] [address] Social History Tobacco Use Types Packs/Day Years Used Date Smoking Tobacco: Never Assessed Comments Unknown Sex and Gender Information Value Date Recorded Sex Assigned at Not on file Legal Sex Female 1:05 PM CDT Gender Identity Not on file Sexual Orientation Not on file documented as of this encounter Plan of Treatment Not on file documented as of this encounter Procedures Procedure Name Priority Date/Time Associated Diagnosis Comments DERMATOPATHOLOGY Routine 03/28/2024 12:0 0 AM CDT documented in this encounter Results * DERMATOPATHOLOGY (03/28/2024 12:00 AM CDT) Case Report Dermatopathology Report Case: [id number] Authorizing Provider: Rene Sanford MD Collected: 03/28/2024 12:00 AM Ordering Location: [facility] Physician [facility] - Received: 03/29/2024 07:31 AM DermPath Lab Pathologist: Anastasiya Cartagena MD Specimens: A) - Skin, right clavicular B) - Skin, mid chest C) - Skin, right forearm 1:41 PM T DERMATOPATHOLOGY LABORATORY Final Diagnosis Specimen A. SKIN, right clavicular: SEBORRHEIC KERATOSIS (L82.1) Specimen B. SKIN, mid chest: 'ZHOU' ANGIOMA (D18.01) (see microscopic description) Specimen C. SKIN, right forearm: 'ZHOU' ANGIOMA (D18.01) 1:41 PM T DERMATOPATHOLOGY LABORATORY at 1341 CDT Clinical History A: R/o ISK B-C: R/O Hemangioma 1:41 PM T DERMATOPATHOLOGY LABORATORY Gross Description Specimen A: Received [...] measuring 6x5x2 mm. Jar 0. 1:41 PM T DERMATOPATHOLOGY LABORATORY Microscopic Description Specimen A. SKIN, [...] thin, widely spaced endothelial cells. 1:41 PM T DERMATOPATHOLOGY LABORATORY Disclaimer An external and internal positive and negative controls are appropriate for the histochemical, immunohistochemical and immunofluorescence stain(s) in this case (if any), except where stated explicitly. The performance characteristics of the stain(s) cited in this report were developed and its performance characteristic determined by the Dermatopathology Laboratory at [facility], directed by Dr. Karol Jones. These tests need not be, and therefore are not, approved by the [place] Food and Drug Administration. The tests are used for clinical purposes. Billing Codes Specimen Charges Stain Charges 96563 [id number] 40592 1 1 1 4 1:41 PM CDT DERMATOPATHOLOGY LABORATORY Embedded Images 1:41 PM CDT DERMATOPATHOLOGY LABORATORY Pathology/Cytology TISSUE SPECIMEN FROM SKIN / Unknown 03/28/2024 03/29/2024 7:31 AM CDT Miscellaneous samples (specimen) TISSUE SPECIMEN FROM SKIN / Unknown 03/28/2024 03/29/2024 7:31 AM CDT Miscellaneous samples (specimen) TISSUE SPECIMEN FROM SKIN / Unknown 03/28/2024 03/29/2024 7:31 AM CDT Rene Sanford MD LAB - PATHOLOGY/CYTOLOGY ORDERAB LES Final Result DERMATOPATHOLOGY LABORATORY [facility] - Department of Dermatology [facility] Specialized Medicine [address] [place] [address], [address] [phone] documented in this encounter Visit Diagnoses Not on filedocumented in this encounter Care Teams Analyst Business Analysis Relationship Specialty Start Date End Date Spenser Bae DO [address] [facility] [address] [place] [address] PCP - General 08/25/21 documented as of this encounter
--- OUTSIDE RECORDS SUMMARY | 2025-01-15 10:01 | XMS_ITS | Clinical Summary ---
Author Organization [facility] Address [address] [place] [address] Care Team Providers Care Dermatology Teacher Name Role Phone Kathia Spenser Roberts DO Primary Care Provider [phone] Source Comments [facility],non-owned Affiliates and Associated Physician Practices is amultiple site organization consisting of ambulatory clinics and hospital sitesin [place], [place], [place] and [place]. This disclosure is being madepursuant to the Care Everywhere program and may not contain all information available regarding this patient. Last updated 18.[facility] Allergies No known active allergies Immunizations Immunization Administration Dates Next Due TDAP (7yrs+) 03/08/2018 [...] VACCINE (1 of 2) 2004 COVID-19 VACCINE (2023-2 5 season) 2024 DEPRESSION SCREENING 08/07/2024 INFLUENZA VACCINE (Season Ended) 2025 DTAP/TDAP/TD VACCINES (2 - T d or [...] to complete this topic MENINGOCOCCAL (Group B) VACC INE SHARED DECISION-MAKING Aged Out No longer eligibl e based on patient's age to complete this topic MENINGOCOCCAL GROUPS A/C/Y/W VACCINE Aged Out No longer eligible b ased on patient's age to complete this topic Insurance AETNA AETNA SELF PAY NO INSURANCE Member Subscriber Plan / Payer (Ef fective for All Dates) Name:Zafar Mariluz E Member ID:Not on file Relation to Subscriber:Not on file Name:MARILUZ STEPHEN Subscriber ID:Not on file (Home) Address: [address] [place] [id number] Payer ID:Not on file Group ID:Not on file Type:Self Pay Address: [place], [place] Care Teams Dermatology Teacher Relationship Specialty Start Date End Date Spenser Bae DO [address] [facility] [address] [place] [address] PCP - General 08/25/21
--- OUTSIDE RECORDS SUMMARY | 2025-01-15 10:01 | XMS_ITS | Clinical Summary ---
[facility] Address [address] [facility] [place] [address] Care Team Providers Care Derrickman Helper Name Role Phone Sahil Diego DO Primary Care Provider [phone] Allergies No known active allergies Medications ergocalciferol [...] Encounters Date Type Department Care Team Description 12/26/2024 External Device Data ST[facility] ABSTRACTION Provider, Abstract 12/25/2024 External Device Data [facility] ABSTRACTION Provider, Abstract 12/24/2024 External Device Data [facility] ABSTRACTION Provider, Abstract 10/23/2024 External Device Data [facility] ABSTRACTION Provider, Abstract from Last 3 Months Family History Medical [...] 79 06/04/2024 2:20 PM CDT Temperature 36.6 C (97.8 F) 06/04/2024 2:20 PM CDT Respiratory Rate 16 06/04/2024 2:20 PM CDT Oxygen Saturation 96% 06/04/2024 2:20 PM CDT Inhaled Oxygen Concentration - - Weight 64.9 kg (143 lb) 06/04/2024 2:20 PM CDT Height 160 cm (5' 3) 06/12/2023 1:34 PM MANAGER ENVIRONMENTAL HEALTH Body Mass Index 25.33 06/12/2023 1:34 PM MANAGER ENVIRONMENTAL HEALTH Plan of Treatment Upcoming Encounters Date Type Department Care Team (Late st Contact Info) Description 01/21/2025 2:00 PM CDT Office Visit [facility] Oncology and Hematology - [place] [address] [facility] [address] [place] [address] Noé Curry MD [address] [facility] [address] [place] [address] Health Maintenance Due Date Last Done Comments Pre-Diabetes and Diabetes Screening 1954 COLORECTAL SCREENING 1999 Colorectal Cancer Screening 1999 FIT-DNA Q 3 years 1999 FIT/FOBT Q 1 year 1999 Flex Sig/CT Colonography Q 5 years 1999 PNEUMOCOCCAL VACCINE 50+ YEA RS (1 of 1 - PCV) 2004 ZOSTER VACCINE (1 of 2) 2004 INFLUENZA VACCINE (#1) 2024 BREAST CANCER SCREENING 06/19/2025 06/19/20 24, 06/19/2024, 03/14/2023, Additional history exists DTAP/TDAP/TD VACCINES (2 - T d or Tdap) 03/08/2028 03/08/2018 OSTEOPOROSIS SCREENING 11/01/2028 , 11/02/2023, 10/17/2022, Additional history exists RSV VACCINE (60+ or ) (1 - 1-dose 75+ series) 2029 Insurance AETNA CHOICE POS II Care Teams Derrickman Helper Relationship Specialty Start Date End Date Sahil Diego DO [address] [facility] [address] [place] [address] PCP - General Internal Medicine 06/04/24
--- OUTSIDE RECORDS SUMMARY | 2025-01-15 10:01 | XMS_ITS | Referral Summary ---
Author Organization [facility] Address [facility] [place] [address] Care Team Providers Care Programmer Engineering And Scientific Name Role Phone Ag Toribio MD Unavailable [phone] Sahil Diego DO Primary Care Provider [phone] Encounters Date Type Department Care Team Description 12/31/2024 11:00 AM CDT Infusion [facility] Injection Therapy [address] [facility] Office [address] [place] [address] Age-related osteoporosis without current pathological fracture (Primary Dx) from Last 3 Months Allergies No known [...] on file Legal Sex Female 4:59 AM ORGAN TUNER ELECTRONIC Gender Identity Not on file Sexual Orientation Not on file Last Filed Vital Signs Vital Sign Reading Time Taken Comments Blood Pressure 136/75 09/01/2020 12:05 PM ORGAN TUNER ELECTRONIC Pulse 74 09/01/2020 12:05 PM ORGAN TUNER ELECTRONIC Temperature 36.9 C (98.4 F) 09/01/2020 12:05 PM ORGAN TUNER ELECTRONIC Respiratory Rate 14 02/19/2019 9:20 AM CDT [...] Read Routine (OP Routine) 06/19/2024 7:21 AM ORGAN TUNER ELECTRONIC Screening mammogram, encounter for DEXA TBS AXIAL SKELETON BONE DENSITY 1 OR MORE SITES Schedule Routine, Read Routine (OP Routine) 11/02/2023 8:15 AM CDT Age-related osteoporosis without current pathological fracture Vitamin D deficiency from Last 3 Months or Most Recently Relevant to Health Maintenance Results * Screening Mammogram Bilateral W Argelia (06/19/2024 7:21 AM ORGAN TUNER ELECTRONIC) Anatomical Region Laterality Modality Breast Bilateral Mammography Impressions 06/19/2024 8:30 AM ORGAN TUNER ELECTRONIC BI-RADS ATLAS category (overall): 2 - Benign There is no mammographic evidence of malignancy. A 1 year screening mammogram is recommended. The patient has been or will be contacted. We recommend annual screening mammography for women at average risk of breast cancer beginning at age 40, based on guidelines of the [place] [employer] (ACR Practice Parameter for the Performance of Screening and Diagnostic Mammography) and [place] [employer]. For women with and elevated risk of breast cancer, please refer to the ACR Practice Parameter for specific screening recommendations. The patient will be entered into a reminder system with a target due date of 1 year for her next screening exam. Narrative 06/19/2024 8:30 AM ORGAN TUNER ELECTRONIC Screening Mammogram Bilateral W Argelia: 06/19/24 The [...] Bone mineral density was performed on a [employer] Discovery Densitometer. Based on machine cross-calibration and [...] by the International Society of Clinical Densitometry. [id number] Luli Rai [facility] IMG DXA PROCEDURES Final Result from Last 3 Months or Most Recently Relevant to Health Maintenance Insurance [facility] [employer] HMO GENERIC COPAY [facility]IST [facility] MEDIC[facility] Care Teams Programmer Engineering And Scientific Relationship Specialty Start Date End Date Sahil Diego DO [address] [place] [address] PCP - General Internal Medicine 04/04/24 Ag oTribio MD [address] [place] [address] Referring Physician Obstetrics and Gynecology 04/05/22
== END 2025-01-15 09:17 | disposition home or self-care (01) ==
LOC: ANHLAB 09:16
PROVIDERS: Visit Provider Internal Medicine Hematology & Oncology
DX: D47.3 Essential (hemorrhagic) thrombocythemia (principal)
CPT/HCPCS: 36415; 85027

== ENCOUNTER 2025-01-21 21:37 | Emergency (ER) | payer OTHER, SELFPAY ==
[2025-01-21] VITALS (7 sets, daily range): BP systolic 110–157; BP diastolic 63–81; PULSE 78–90; RESP 12–17; TEMP 36.8; O2SAT 98–100
--- NOTE | ~2025-01-21 | CT_ITS ---
CLINICAL INDICATION: Abdominal pain and diarrhea COMPARISON: None. TECHNIQUE: Multiple contiguous axial images of the abdomen and pelvis were performed following the ad ministration of with 100 mL Omnipaque-350 intravenous contrast The dose-length product (DLP) was 362.14 mGy-cm. Automated exposure control and iterative reconstruction technique were employed. FINDINGS/OBSERVATIONS: Visualized lower thorax: The bilateral lung bases are clear. The heart is enlarged, without pericardial effusion. Small hiatal hernia is present. Liver: Well-circumscribed focus of decreased attenuation within segment 8 of the liver, statistically a cyst but too small to characterize. The remainder of the liver otherwise demonstrates homogeneous enhancement and is not enlarged. Gallbladder and biliary system: The gallbladder is only minimally distended, and otherwise unremarkable. Pancreas: The pancreas enhances homogeneously without ductal dilatation. Spleen: Punctate calcifications identified within the splenic parenchyma, suggesting prior granulomat ous disease. The remainder of the spleen otherwise enhances homogeneously and is not enlarged Kidneys: The bilateral kidneys enhance symmetrically without hydronephrosis or renal calculi. Adrenal glands: Unremarkable. Gastrointestinal tract: Colonic diverticulosis without surrounding inflammatory change. Within the distal descending colon is a 10 cm long fluid-filled segment of bowel demonstrating increa sed attenuation in a intramural pattern for which acute hemorrhage is suspected. Although not a CTA examination, this may represent extravasation of contrast. Appendix: The appendix is not definitively visualized. However, no pericecal inflammatory change is identified suggest the presence of acute appendicitis. Vasculature: Unremarkable. Lymph nodes: No pathologically enlarged or morphologically suspicious lymph nodes within the retroperitoneum or at the root of the mesentery. Pelvic structures: The bladder is only minimally distended with markedly thickened beard. The uterus is atrophic, and otherwise unremarkable. Body wall and musculoskeletal: No significant degenerative disease within the lower thoracic or lumbosacral spine. IMPRESSION: Findings within the distal descending colon for which active intraluminal colonic hemorrhage is suspe cted, with contrast extravasation. These findings were given to Love Quiñonez at 11:15 PM on 01/21/2025 Reviewed, dictated and finalized at location A. IMPRESSION: Findings within the distal descending colon for which active intraluminal colon ic hemorrhage is suspected, with contrast extravasation. These findings were given to Love Quiñonez at 11:15 PM on 01/21/2025
--- OUTSIDE RECORDS SUMMARY | 2025-01-21 21:39 | XMS_ITS | Encounter Summary ---
Author Organization [facility] Address [address] [place] [address] Care Team Providers Care Framing Mill Operator Helper Name Role Phone Spenser Bae DO Primary Care Provider [phone] Encounter Details Date Type Department Care Team (Late st Contact Info) Description 03/28/2024 Lab Requisition [facility] - DermPath Lab [address] [place] [id number] Rene Sanford MD [address] [place] [address] Social History Tobacco Use Types Packs/Day Years [...] AM CDT) Case Report Dermatopathology Report Case: [id number] Authorizing Provider: Rene Sanford MD Collected: 03/28/2024 12:00 AM Ordering Location: [facility] - Received: 03/29/2024 07:31 AM DermPath Lab [...] characteristic determined by the Dermatopathology Laboratory at [facility], directed by Dr. Karol Jones. These tests need not be, and therefore are not, approved by the [place] Food and Drug Administration. The tests are used for clinical purposes. Billing Codes Specimen Charges Stain Charges 46628 [id number] 1 1 1 4 1:41 PM CDT [...] PATHOLOGY/CYTOLOGY ORDERAB LES Final Result DERMATOPATHOLOGY LABORATORY [facility] - Department of Dermatology [facility] [address] [place] [address], [address]rd Floor [address] [phone] documented in this encounter Visit Diagnoses Not on filedocumented in this encounter Care Teams Framing Mill Operator Helper Relationship Specialty Start Date End Date Spenser Bae DO [address] [facility] [address] [place] [address] PCP - General 08/25/21 documented as of this encounter
--- OUTSIDE RECORDS SUMMARY | 2025-01-21 21:39 | XMS_ITS | Encounter Summary ---
Author Organization [facility] [employer] [facility] Address [address] [place] [address] Care Team Providers Care Cherry Dipper Name Role Phone Sahil Diego DO Primary Care Provider [phone] Reason for Visit * Reason Comments Follow Up Encounter Details Date Type Department Care Team (Late st Contact Info) Description 01/21/2025 2:00 PM CDT Office Visit [facility] Oncology and Hematology - [place] [address] [facility] [address] [place] [address] Noé Curry MD [address] [facility] [address] [place] [address] Essential thrombocytosis (CMS/HCC) (Primary Dx) Social History Tobacco Use Types Packs/Day Years [...] on file documented as of this encounter Last Filed Vital Signs Vital Sign Reading Time Taken Comments Blood Pressure 144/77 01/21/2025 2:43 PM CDT Pulse 71 01/21/2025 2:41 PM CDT Temperature 36.5 C (97.7 F) 01/21/2025 2:41 PM CDT Respiratory Rate 15 01/21/2025 2:41 PM CDT Oxygen Saturation 95% 01/21/2025 2:41 PM CDT Inhaled Oxygen Concentration - - Weight 66.6 kg (146 lb 12.8 oz) 01/21/2025 2:41 PM CDT Height - - Body Mass Index 26 06/12/2023 1:34 PM HEAVY EQUIPMENT SUPERVISOR documented in this encounter Progress Notes * Noé Curry MD - 01/21/2025 3:13 PM CDT HEMATOLOGY / ONCOLOGY PROGRESS NOTE Patient Identification: Name: Mariluz Stephen Age: 69 y.o. Sex: female : 1955 DIAGNOSIS Essential thrombocythemia with JAK2 mutation positive diagnosed June 2023. CURRENT TREATMENT Hydroxyurea 500 mg daily with allopurinol 300 mg daily. TREATMENT HISTORY SUBJECTIVE Patient came to the office for follow-up visit. She has been taking hydroxyurea and tolerating it well. Denies any bleeding and bruising. Denies any chest pain shortness of breath. Weight and appetite stable. No other new complaints. Review of system Constitutional: Patient did not mention fevers, sweats, denies any tiredness and fatigue, weight and appetite stable HEENT: Patient did not mention sinus congestion, hearing or vision problems Respiratory: Patient did not mention cough, dyspnea, wheeze Cardiovascular: Patient did not mention chest pain, exertional chest pressure/discomfort, nausea, syncope, shortness of breath GI: Patient did not mention constipation, diarrhea, dsyphagia, reflux symptoms, vomiting, melena : Patient did not mention dysuria, frequency, incontinence, urgency Integumentary system: no lymphadenopathy, sweats, flushing Musculoskeletal: Patient not mention: myalgia, arthralgia Neurological: Patient did not mention blurry or disturbed vision, numbness/weakness, dizziness Skin: No lumps, bumps or rashes. 12 point review of system was reviewed Objective: Vital signs in last 24 hours: As per nursing note Exam: General appearance: alert, cooperative, no distress, appears stated age Head: normocephalic, without obvious abnormality, atraumatic Eyes: conjunctivae/corneas clear, EOM's intact Ears: normal external ear canals AU Nose: Nares normal. Septum midline. Mucosa normal. No drainage or sinus tenderness Throat: Lips, mucosa, and tongue normal. Teeth and gums normal Neck: supple, symmetrical, trachea midline. Lungs: clear to auscultation bilaterally Heart: regular rate and rhythm, S1, S2 normal, no murmur, click, rub or gallop Abdomen: soft, non-tender. Bowel sounds normal. No masses, No organomegaly Extremities: extremities normal, atraumatic, no cyanosis or edema Skin: Skin color, texture, turgor normal. No rashes or lesions Lymph nodes: No lymphadenopathy Neuro: No obvious focal deficit Exam as above PATH LABS Labs from June 03 showed hemoglobin 14.9 platelet 573,000 WBC 11.0 creatinine 0.6 AST 42 ALT 37 Lab from August 29 showed AST 28 ALT 16 WBC 12.4 hemoglobin 13.9 platelet 633,000 Labs from January 15 showed WBC 12.9 hemoglobin 14.7 platelets 604,000 Assessment: Plan: There are no active problems to display for this patient. Essential thrombocythemia with JAK2 mutation positive diagnosed June 2023. Labs noted. Platelet count has improved slightly. Will continue hydroxyurea 500 mg daily along withbaby aspirin every other day. She is taking baby aspirin every other day due to easy bruising. Tumor lysis prevention. Continue allopurinol 300 mg daily with adequate hydration. Elevated liver enzyme. Resolved. Osteoporosis. Bone density done on January 15, 2025 showed improvement in bone density. Continue Prolia along with vitamin D and calcium. Follow-up in 3 months. 01/21/2025 Noé Curry MD documented in this encounter Plan of Treatment Upcoming Encounters Date Type Department Care Team (Late st Contact Info) Description 05/06/2025 11:15 AM CDT Office Visit [facility] Oncology and Hematology [facility] [address] [place] [address] [facility] [address] [place] [address] Noé Curry MD [address] [facility] [address] [place] [address] Scheduled Orders Name Type Priority Associated Diagnoses Orde r Schedule CBC WITH DIFFERENTIAL Lab Stat Essential thrombocytosis (CMS/HCC) Expected: 04/15/2025, Expires: 01/21/2026 BASIC METABOLIC PANEL Lab Stat Essential thrombocytosis (CMS/HCC) Expected: 04/15/2025, Expires: 01/21/2026 documented as of this encounter Visit Diagnoses Diagnosis Essential thrombocytosis (CMS/HCC)- Primary Essential thrombocythemia documented in this encounter Care Teams Cherry Dipper Relationship Specialty Start Date End Date Sahil Diego DO [address] [facility] [address] [facility] [address] [place] [address] PCP - General Internal Medicine 06/04/24 documented as of this encounter
--- OUTSIDE RECORDS SUMMARY | 2025-01-21 21:39 | XMS_ITS | Clinical Summary ---
Author Organization [facility] Jose D tijerina Dion Address [address] [place] [address] Care Team Providers Care Rag Cutting Machine Tender Name Role Phone Sahil Diego DO Primary Care Provider [phone] Allergies No known active allergies Medications ergocalciferol [...] Encounters Date Type Department Care Team Description 01/21/2025 2:00 PM CDT Office Visit [facility] Oncology and Hematology - [place] [place] [address] Néo Curry MD Essential thrombocytosis (CMS/HCC) (Primary Dx) 01/15/2025 Orders Only [facility] Oncology and Hematology [address] [place] [address] Noé Curry MD 12/26/2024 External Device Data STL ABSTRACTION Provider, [...] 12.8 oz) 01/21/2025 2:41 PM CDT Height 160 cm (5' 3) 06/12/2023 1:34 PM PAINTER SKI EDGE Body Mass Index 26 06/12/2023 1:34 PM PAINTER SKI EDGE Plan of Treatment Upcoming Encounters Date Type Department Care Team (Late st Contact Info) Description 05/06/2025 11:15 AM CDT Office Visit [facility] Oncology and Hematology - [place] [address] [facility] [address] [place] [address] Noé Curry MD [address] [facility] [address] [place] [address] Health Maintenance Due Date Last Done Comments Pre-Diabetes and Diabetes Screening 1955 COLORECTAL SCREENING 1999 Colorectal Cancer Screening 1999 FIT-DNA Q 3 years 1999 FIT/FOBT Q 1 year 1999 Flex Sig/CT Colonography Q 5 years 1999 PNEUMOCOCCAL VACCINE 50+ YEA RS (1 of 1 - PCV) 2004 ZOSTER VACCINE (1 of 2) 2004 INFLUENZA VACCINE (#1) 2024 Preventative Visit- Commercial 08/07/2024 BREAST CANCER SCREENING 06/19/2025 06/19/20 24, 06/19/2024, 03/14/2023, Additional history exists DTAP/TDAP/TD VACCINES (2 - T d or Tdap) 03/08/2028 03/08/2018 RSV VACCINE (60+ or ) (1 - 1-dose 75+ series) 2029 OSTEOPOROSIS SCREENING 01/15/2030 5, 01/15/2025, 11/02/2023, Additional history exists Procedures Procedure Name Priority Date/Time Associated Diagnosis Comments CBC WITH AUTODIFFERENTIAL Routine 2024 12:52 PM CDT from Last 3 Months Results * CBC WITH AUTODIFFERENTIAL (01/15/2025 12:52 PM CDT) Blood us Noé Curry MD HEMATOLOGY ORDERABLES Final Res ult from Last 3 Months Insurance [employer] CHOICE POS II Care Teams Rag Cutting Machine Tender Relationship Specialty Start Date End Date Sahil Diego DO [address] [facility] [address] [place] [address] PCP - General Internal Medicine 06/04/24
--- OUTSIDE RECORDS SUMMARY | 2025-01-21 21:39 | XMS_ITS | Encounter Summary ---
Author Organization [facility] [employer] [facility] Address [address] [place] [address] Care Team Providers Care Arnp Name Role Phone Sahil Diego DO Primary Care Provider [phone] Encounter Details Date Type Department Care Team (Late Contact Info) Description 01/15/2025 Orders Only [facility] Oncology and Hematology [facility] [address] [place] [address] Noé Curry MD [address] [place], [place] [address] [address] [place] [address] Social History Tobacco Use Types Packs/Day Years Used Date Smoking Tobacco: Never Alcohol Use Standard Drinks/Week Comments Never 0 (1 standard drink = 0.6 oz pur e alcohol) Comments Unknown Sex and Gender Information Value Date Recorded Sex Assigned at Not on file Legal Sex Female 1:48 PM CDT Gender Identity Not on file Sexual Orientation Not on file documented as of this encounter Plan of Treatment Upcoming Encounters Date Type Department Care Team (Late Contact Info) Description 05/06/2025 11:15 AM CDT Office Visit [facility] Oncology and Hematology - [place] [place] [address] Noé Curry MD [facility] [address] [place] [address] documented as of this encounter Procedures Procedure Name Priority Date/Time Associated Diagnosis Comments CBC WITH AUTODIFFERENTIAL Routine 2024 12:52 PM CDT documented in this encounter Results * CBC WITH AUTODIFFERENTIAL (01/15/2025 12:52 PM CDT) Blood us Noé Curry MD HEMATOLOGY ORDERABLES Final Res ult documented in this encounter Visit Diagnoses Not on filedocumented in this encounter Care Teams Arnp Relationship Specialty Start Date End Date Sahil Diego DO [address] [facility] [address] [place] [address] PCP - General Internal Medicine 06/04/24 documented as of this encounter
--- OUTSIDE RECORDS SUMMARY | 2025-01-21 21:39 | XMS_ITS | Clinical Summary ---
Author Organization [facility] Address [facility] [place] [address] Care Team Providers Care Counselor At Law Name Role Phone Ag Toribio MD Unavailable [phone] Sahil Diego DO Primary Care Provider [phone] Allergies No known active allergies Medications multivitamin [...] Encounters Date Type Department Care Team Description 01/15/2025 1:45 PM CDT Lab [facility] at [address] [place] [address] Age-related osteoporosis without current pathological fracture 01/15/2025 1:00 PM CDT Office Visit [address] [place] [address] Lisa Herndon MD Age-related osteoporosis without current pathological fracture (Primary Dx) 01/15/2025 12:30 PM CDT Clinical Support [address] [place] [address] Age-related osteoporosis without current pathological fracture; Vitamin D deficiency 01/15/[address] [place] [address] Lisa Herndon MD 12/31/2024 11:00 AM CDT Infusion [facility] In[facility] Therapy [address] [place] [address] [address] [place] [address] Age-related osteoporosis without current pathological fracture (Primary [...] on file Legal Sex Female 4:59 AM COTTON WEIGHER OPERATOR Gender Identity Not on file Sexual Orientation Not on file Obstetrics History Para Term AB IAB SAB Ectopic Multiple Livin g Live Births 1 Date Outcome GA Total Labor Labor/2nd/3rd Weight Sex Type Anes PTL Ida A1 A5 Name Clin Last Filed Vital Signs Vital Sign Reading Time Taken Comments Blood Pressure 136/75 09/01/2020 12:05 PM COTTON WEIGHER OPERATOR Pulse 74 09/01/2020 12:05 PM COTTON WEIGHER OPERATOR Temperature 36.9 C (98.4 F) 09/01/2020 12:05 PM COTTON WEIGHER OPERATOR Respiratory Rate 14 02/19/2019 9:20 AM CDT Oxygen Saturation 100% 02/19/2019 9:20 AM CDT Inhaled Oxygen Concentration - - Weight 65.8 kg (145 lb) 01/15/2025 12:26 PM CDT Height 160 cm (5' 3) 01/15/2025 12:26 PM CDT Body Mass Index 25.69 01/15/2025 12:26 PM CDT Plan of Treatment Health Maintenance Due [...] Additional history exists Osteoporosis Screening-Bone Density Scan 01/15/2027 01/15/2025, 11/02/2023, 11/02/2023, Additional history exists DTaP/Tdap/Td Vaccine (2 - Td or Tdap) 03/08/2028 03/08/2018 Procedures Procedure Name Priority Date/Time Associated Diagnosis Comments VITAMIN D 25 HYDROXY Routine 01/15/2025 1:11 PM CDT Age-related osteoporosis without current pathological fracture DEXA TBS AXIAL SKELETON BONE DENSITY 1 OR MORE SITES Schedule Routine, Read Routine (OP Routine) 01/15/2025 12:15 PM CDT Age-related osteoporosis without current pathological fracture Vitamin D deficiency SCREENING MAMMOGRAM BILATERAL W STEWART Schedule Routine, Read Routine (OP Routine) 06/19/2024 7:21 AM COTTON WEIGHER OPERATOR Screening mammogram, encounter for from Last 3 Months or Most Recently Relevant to Health Maintenance Results * (ABNORMAL) Vitamin D 25 hydroxy (01/15/2025 1:11 PM CDT) Vitamin D 25-OH 84(H) 30 - 80 ng/mL Comment:Testing performed by : [facility], [address] [employer] [facility], [place] [address] Blood 01/15/2025 1:11 PM CDT 01/15/2025 1:40 PM CDT us Lisa Herndon MD LAB BLOOD ORDERABLES Final Result Performing Organization Address City/State/[facility] Co de Phone Number [facility] [address] [employer] [facility]. [place] [address] * Dexa TBS Axial Skeleton Bone Density 1 or more sites (01/15/2025 12:15 PM CDT) Anatomical Region Laterality Modality Wrist, Body N/A Radiographic Violeta ging Narrative 01/15/2025 1:25 PM CDT Patient Name: Mariluz Stephen Date of : 1955 Date of scan: 01/15/2025 Bone mineral density was performed on a [employer] Discovery Densitometer. Based on machine cross-calibration and precision studies the least significant changes of this densitometer is 0.024 g/cm2 at the spine, 0.020 g/cm2 at the total proximal femur, and 0.014g/cm2 at the forearm. HISTORY: This is a 69 y.o. postmenopausal female with a history of osteoporosis and vitamin D deficiency. She reports that she has never smoked. She has never used smokeless tobacco. Currently on treatment with calcium, vitamin D, and denosumab (Prolia) and previously treated with alendronate (Fosamax), zoledronic acid (Reclast), and hormone replacement therapy. INDICATIONS: Menopause status, treatment monitoring, vitamin D deficiency, and history of osteoporosis. FINDINGS: BONE MINERAL DENSITY OF THE LUMBAR SPINE Bone Mineral Density (BMD) of the lumbar spine was measured from L1-L4 and the average density was calculated to be 1.017 gm/cm2. This corresponds to a T-score (standard deviations from the mean of young adults) of -0.3. When compared to the previous study of 11/02/23 there has been a 0.026 gm/cm (2.6%) increase in bone density that is considered significant. BONE MINERAL DENSITY OF THE PROXIMAL FEMUR Bone Mineral Density (BMD) of the right hip total was found to be 0.767 gm/cm2. This corresponds to a T-score standard deviations from the mean of young adults of -1.4. Femoral neck is 0.613 gm/cm2 with a T-score (standard deviations from the mean of young adults) of -2.1. When compared to the previous study of 11/02/23 there has been a 0.022 gm/cm (3.0%) increase in bone density that is considered significant. SUMMARY: Bone mineral density shows evidence of low bone mass at the proximal femur and moderately increased fracture risk (Osteopenia). There has been a significant increase in bone density since previous measurement. The lumbar spine Trabecular Bone Score is 1.425 which suggests normal bone microarchitecture, compared to [...] bone mineral density scan were prepared by Kristyn Cruz who is accredited by the International Society of Clinical Densitometry. The overall patient assessment and scan interpretation were performed by Lisa Herndon M.D. who is certified by the International Society of Clinical Densitometry. [id number] Luli RazaPankaj Rai [facility] IMG DXA PROCEDURES Final Result * Screening Mammogram Bilateral W Stewart (06/19/2024 7:21 AM COTTON WEIGHER OPERATOR) Anatomical Region Laterality Modality Breast Bilateral Mammography Impressions 06/19/2024 8:30 AM COTTON WEIGHER OPERATOR BI-RADS ATLAS category (overall): 2 - Benign There is no mammographic evidence of malignancy. A 1 year screening mammogram is recommended. The patient has been or will be contacted. We recommend annual screening mammography for women at average risk of breast cancer beginning at age 40, based on guidelines of the [place] [employer] (ACR Practice Parameter for the Performance of Screening and Diagnostic Mammography) and [place] [employer]. For women with and elevated risk of breast cancer, please refer to the ACR Practice Parameter for specific screening recommendations. The patient will be entered into a reminder system with a target due date of 1 year for her next screening exam. Narrative 06/19/2024 8:30 AM COTTON WEIGHER OPERATOR Screening Mammogram Bilateral W Stewart: 06/19/24 The study was acquired using full field digital technology and interpreted from soft copy. 2D digital mammographic views, as well as 3D digital tomosynthesis were performed in the CC and MLO projections. CLINICAL: Screening mammogram, encounter for. No relevant medical history has been documented for this patient. History of breast cancer in Mother's Sister. COMPARISONS: 03/14/2023 Screening Mammogram Bilateral W Stewart 04/12/2022 Diagnostic Mammogram 2D Left 04/05/2022 Screening Mammogram Bilateral W Stewart 03/30/2021 Screening Mammogram Bilateral W Stewart 03/25/2020 Screening Mammogram Bilateral W Stewart BREAST TISSUE: The breasts are heterogeneously dense, which may obscure small masses. FINDINGS: There are stable postoperative changes in the right breast. There are unchanged benign calcifications in the left breast. There is a biopsy clip in the left breast. There is no new suspicious finding in either breast on mammogram. us Self Screening Mammogram IMG MAMMO PROCEDURES Fi nal Result from Last 3 Months or Most Recently Relevant to Health Maintenance Insurance [facility] HMO GENERIC COPAY ASSIST [facility] HMO [facility] [employer] MEDICARE Care Teams Counselor At Law Relationship Specialty Start Date End Date Sahil Diego DO [address] [place] [address] PCP - General Internal Medicine 04/04/24 Ag Toribio MD [address] [place] [address] Referring Physician Obstetrics and Gynecology 04/05/22
--- OUTSIDE RECORDS SUMMARY | 2025-01-21 21:39 | XMS_ITS | Clinical Summary ---
Author Organization [facility] Address [address] [place] [address] Care Team Providers Care Departmental Shipping Clerk Name Role Phone Kathia Spenser Roberts DO Primary Care Provider Source Comments [facility],non-owned Affiliates and Associated Physician Practices is amultiple site organization consisting of ambulatory clinics and hospital sitesin [place], [place], [place] and [place]. This disclosure is being madepursuant to the Care Everywhere program and may not contain all information available regarding this patient. Last updated 18.[facility] Allergies No known active allergies Immunizations Immunization [...] STEPHEN Subscriber ID:Not on file (Home) Address: [address] [place] [phone] Payer ID:Not on file Group ID:Not on file Type:Self Pay Address: [place], [place] Care Teams Departmental Shipping Clerk Relationship Specialty Start Date End Date Spenser Bae DO [address] [facility] [address] [place] [address] PCP - General 08/25/21
--- OUTSIDE RECORDS SUMMARY | 2025-01-21 21:39 | XMS_ITS | Referral Summary ---
Author Organization [facility] Address [address] [place] [id number] Care Team Providers Care Audio Production Manager Name Role Phone Ag Toribio MD Unavailable [phone] Sahil Diego DO Primary Care Provider [phone] Encounters Date Type Department Care Team Description 01/15/[address] Medical Office Building [address] [place] [address] Lisa Herndon MD 01/15/2025 1:45 PM CDT Lab [facility] at [address] [address] Age-related osteoporosis without current pathological fracture 01/15/2025 12:30 PM CDT Clinical Support [address] Medical Office Building [address] [place] [address] Age-related osteoporosis without current pathological fracture; Vitamin D deficiency 01/15/2025 1:00 PM CDT Office Visit [address] Medical Office Building [address] [place] [address] Lisa Herndon MD Age-related osteoporosis without current pathological fracture (Primary Dx) 12/31/2024 11:00 AM CDT Infusion [facility] [address] [place] [address] Medical Office Building [address] [place] [address] Age-related osteoporosis without current pathological fracture (Primary [...] on file Legal Sex Female 4:59 AM PROFESSOR OF SPORT MANAGEMENT Gender Identity Not on file Sexual Orientation Not on file Last Filed Vital Signs Vital Sign Reading Time Taken Comments Blood Pressure 136/75 09/01/2020 12:05 PM PROFESSOR OF SPORT MANAGEMENT Pulse 74 09/01/2020 12:05 PM PROFESSOR OF SPORT MANAGEMENT Temperature 36.9 C (98.4 F) 09/01/2020 12:05 PM PROFESSOR OF SPORT MANAGEMENT Respiratory Rate 14 02/19/2019 9:20 AM CDT Oxygen Saturation 100% 02/19/2019 9:20 AM CDT Inhaled Oxygen Concentration - - Weight 65.8 kg (145 lb) 01/15/2025 12:26 PM CDT Height 160 cm (5' 3) 01/15/2025 12:26 PM CDT Body Mass Index 25.69 01/15/2025 12:26 PM CDT Plan of Treatment Not on file Procedures Procedure Name Priority Date/Time Associated Diagnosis Comments VITAMIN D 25 HYDROXY Routine 01/15/2025 1:11 PM CDT Age-related osteoporosis without current pathological fracture DEXA TBS AXIAL SKELETON BONE DENSITY 1 OR MORE SITES Schedule Routine, Read Routine (OP Routine) 01/15/2025 12:15 PM CDT Age-related osteoporosis without current pathological fracture Vitamin D deficiency SCREENING MAMMOGRAM BILATERAL W ARGELIA Schedule Routine, Read Routine (OP Routine) 06/19/2024 7:21 AM PROFESSOR OF SPORT MANAGEMENT Screening mammogram, encounter for from Last 3 Months or Most Recently Relevant to Health Maintenance Results * (ABNORMAL) Vitamin D 25 hydroxy (01/15/2025 1:11 PM CDT) Vitamin D 25-OH 84(H) 30 - 80 ng/mL Comment:Testing performed by : [facility], [address] [facility], [place] [address] Blood 01/15/2025 1:11 PM CDT 01/15/2025 1:40 PM CDT us Lisa Herndon MD LAB BLOOD ORDERABLES Final Result [facility] [address] [facility]. [place] [address] * Dexa TBS Axial Skeleton Bone Density 1 or more sites (01/15/2025 12:15 PM CDT) Anatomical Region Laterality Modality Wrist, Body N/A Radiographic Violeta ging Narrative 01/15/2025 1:25 PM CDT Patient Name: Mariluz Stephen Date of : 1955 Date of scan: 01/15/2025 Bone mineral density was performed on a HoloSmart Eye Discovery Densitometer. Based on machine cross-calibration and [...] by the International Society of Clinical Densitometry. [id number] Luli Rai [facility] IMG DXA PROCEDURES Final Result * Screening Mammogram Bilateral W Argelia (06/19/2024 7:21 AM PROFESSOR OF SPORT MANAGEMENT) Anatomical Region Laterality Modality Breast Bilateral Mammography Impressions 06/19/2024 8:30 AM PROFESSOR OF SPORT MANAGEMENT BI-RADS ATLAS category (overall): 2 - Benign There is no mammographic evidence of malignancy. A 1 year screening mammogram is recommended. The patient has been or will be contacted. We recommend annual screening mammography for women at average risk of breast cancer beginning at age 40, based on guidelines of the [employer] (ACR Practice Parameter for the Performance of Screening and Diagnostic Mammography) and [employer]. For women with and elevated risk of breast cancer, please refer to the ACR Practice Parameter for specific screening recommendations. The patient will be entered into a reminder system with a target due date of 1 year for her next screening exam. Narrative 06/19/2024 8:30 AM PROFESSOR OF SPORT MANAGEMENT Screening Mammogram Bilateral W Argelia: 06/19/24 The [...] Most Recently Relevant to Health Maintenance Insurance [facility] HMO GENERIC [employer] ASSIST [facility] HMO [facility] HMO MEDICARE Care Teams Audio Production Manager Relationship Specialty Start Date End Date Sahil Diego DO [address] [place] [address] PCP - General Internal Medicine 04/04/24 Ag Toribio MD [address] [place] [address] Referring Physician Obstetrics and Gynecology 04/05/22
[2025-01-21 21:55] LABS: Basophils Absolute Auto 0.1 K/mm3 (0.0-0.1); Basophils Percent Auto 0.4 % (0.2-1.2); Eosinophils Absolute Auto 0.2 K/mm3 (0-0.3); Eosinophils Percent Auto 1.8 % (0-4.4); Hematocrit 40.1 % (37.0-47.0); Hemoglobin 13.3 g/dL (12.0-15.0); Immature Granulocyte Absolute 0.12 K/mm3 (0.00-0.031); Immature Granulocyte Percent A 0.9 % (0-0.5); Lymphocytes Absolute Auto 2.04 K/mm3 (0.9-3.2); Mean Corpuscular HGB Conc 33.2 g/dl (32-36); Mean Corpuscular Hemoglobin 34.8 pg (26-34); Mean Platelet Volume 9.1 fl (7.4-10.4); Monocytes Absolute Auto 0.8 K/mm3 (0.1-0.6); Monocytes Percent Auto 6.3 % (2.6-8.5); Neutrophils Absolute Auto 9.5 K/mm3 (1.3-6.7); Neutrophils Percent Auto 74.6 % (45.5-73.1); Platelet Count Result 629 k/mm3 (150-375); Red Blood Count 3.82 M/mm3 (4.2-5.4); Red Cell Distribution Width 13.5 % (11.5-14.5); White Blood Count 12.8 K/mm3 (4.5-10.0)
[2025-01-21 22:05] LABS: Alanine Aminotransferase 19 U/L (6-35); Albumin Level 4.1 g/dL (3.5-5.1); Alkaline Phosphatase 60 U/L (38-126); Anion Gap 7 mmol/L (4-12); Aspartate Amino Transferase 34 U/L (14-36); Bilirubin,Total 0.5 mg/dL (0.2-1.3); Blood Urea Nitrogen 20 mg/dL (7-17); Carbon Dioxide 25 mmol/L (22-30); Chloride 105 mmol/L (98-107); Estimated CRCL calculation 48 ml/min; Estimated Glomerular Filt Rate > 60; Glucose 129 mg/dL (65-110); Sodium 137 mmol/L (137-145); Total Protein 7.1 g/dL (6.3-8.2)
[2025-01-21 22:09] LABS: INR 1.2; Prothrombin Time 15.1 Seconds (11.1-14.7)
--- NOTE | 2025-01-21 23:02 | ED_ITS ---
HPI - Abdominal Pain General Chief Complaint: Abdominal Pain <Love Quiñonez PA-C - Last Filed: 01/24/25 09:16> Stated Complaint: abd pain, diarrhea, bright red bloody stools today <Love Quiñonez PA-C - Last Filed: 01/24/25 09:16> Time Seen by Provider: 01/21/25 21:41 <Love Quiñonez PA-C - Last Filed: 01/24/25 09:16> Source: patient <Love Quiñonez PA-C - Last Filed: 01/24/25 09:16> Mode of arrival: ambulatory <ERIN Jauregui Last Filed: 01/24/25 09:16> Limitations: no limitations <Love Quiñonez PA-C - Last Filed: 01/24/25 09:16> History of Present Illness HPI narrative: This is a 69-year-old female that presents to the emergency department for crampy abdominal pain. Reports loose stools ongoing since yesterday. Reports tonight she started to have bloody bowel movements which concerned her and prompted her to be seen. She is not on anticoagulation. Denies fevers. <ERIN Jauregui Last Filed: 01/24/25 09:16> Related Data Home Medications: Home Medications ?Medication ?Instructions ?Recorded ?Confirmed ?Last Taken ?Type calcium citrate 400 mg PO DAILY 11/03/20 01/15/25 08/15/21 History cholecalciferol (vitamin D3) 25 25 mcg PO DAILY 11/03/20 01/15/25 08/15/21 History mcg (1,000 unit) capsule multivitamin (Daily Multi-Vitamin 1 tablet PO DAILY 11/03/20 01/15/25 08/15/21 History tablet) denosumab 60 mg/mL subcutaneous 60 mg subcut [id number] 11/30/22 01/15/25 Unknown History syringe (Prolia) allopurinol 300 mg tablet 300 mg PO DAILY 01/02/24 01/15/25 Unknown History hydroxyurea 500 mg capsule (Hydrea) 500 mg PO DAILY 01/02/24 01/15/25 Unknown History ergocalciferol (vitamin D2) 1,250 1,250 mcg PO WEEKLY 08/05/24 01/15/25 Unknown History mcg (50,000 unit) capsule (Vitamin D2) <Love Quiñonez PA-C - Last Filed: 01/24/25 09:16> Allergies/Adverse Reactions: Allergies Allergy/AdvReac Type Severity Reaction Status Date / Time No Known Allergies Allergy Verified 01/21/25 23:36 <Love Quiñonez PA-C - Last Filed: 01/24/25 09:16> Review of Systems 2 Review of Systems: All systems reviewed & are unremarkable except as noted in HPI and below <Love Quiñonez PA-C - Last Filed: 01/24/25 09:16> [facility] Past Medical History Medical History: Medical History JAK2 gene mutation Osteoporosis Thrombocytosis Screening mammogram, encounter for Leukocytosis Age related osteoporosis Arthritis <Lvoe Quiñonez PA-C - Last Filed: 01/24/25 09:16> Surgical History Surgical History: Surgical History H/O breast biopsy 2005 lt breast bx--benign 02/13/19 rt breast bx Hx of section 04/30/92 primary c/s-meconium H/O repair of left rotator cuff <Love Quiñonez PA-C - Last Filed: 01/24/25 09:16> Family History Family History: Family History Father Diabetes mellitus Hypertension Pneumonia Sepsis Mother Hypertension Other Breast cancer maternal aunt <Love Quiñonez PA-C - Last Filed: 01/24/25 09:16> Social History Social History: Social History Social History: The patient is and her is the durable power commercial real estate attorney for healthcare. The patient has 1 biological son and has adopted a daughter. Patient is a lifelong nonsmoker. She does not use any alcohol marijuana or illicit drugs. Code status full code Caffeine-daily Smoking status: Never smoker Second hand tobacco smoke exposure: No Alcohol intake: never Substance use: never Substance use type: does not use Do You Feel Safe in your Home?: Yes Lack of Transportation: No Lack of Food: Never True Current Housing: Decline to Answer Concerned About Future Housing: Decline to Answer Difficulty Paying Gas/Electric Bills: Decline to Answer Difficulty Paying for Meds: Decline to Answer Currently Unemployed: Decline to Answer Education: Decline to Answer Difficulty w/ Childcare or Family Care: Decline to Answer Living arrangements: with family Additional living arrangements comments: Occupation/Education: occupation Additional occupation/education comments: [employer] Gender identity (if verbalized by the patient): Female Sexual Orientation (if Verbalized by the Patient): Straight or Heterosexual Spiritual care concerns: No <Love Quiñonez PA-C - Last Filed: 01/24/25 09:16> Exam 2 Narrative: GENERAL: Well-appearing, well-nourished, and in no acute distress. HEAD: Normocephalic, atraumatic. EYES: EOMI. CHEST: Clear to auscultation. No respiratory distress. No wheezes rales or rhonchi HEART: Regular rate and rhythm. No murmur heard. Normal peripheral pulses. ABDOMEN: Soft, nontender, nondistended, normal active bowel sounds. EXTREMITIES: Normal range of motion. No edema. SKIN: Warm, dry, no rash. NEURO: No focal deficits. Alert and oriented x3. PSYCH: Normal mood and affect <Love Quiñonez PA-C - Last Filed: 01/24/25 09:16> Course [employer] LEADER/PA Physician Supervision This visit was performed by both a physician and an APC. I performed all aspects of the MDM as documented. Patient presents with active GI bleed symptoms including multiple bright red bloody bowel movements. She had a large voluminous bowel movement here in the emergency department that was bright red with clots and had a near syncopal episode. Hemodynamically remained stable, hemoglobin on initial presentation was 13 and repeat H&H decreased to 10. We did speak to the hospitalist team and the gastrointestinal team here who felt given patient's acute GI bleeding on CT scan and large hemoglobin drop she warranted higher level of care and transfer for potential IR interventions. [facility] as well as [facility] transfer systems were made aware and she was accepted to the [facility] ICU with bed pending. Patient remains hemodynamically stable on re-evaluations. [facility] was arranged and patient left the facility in stable condition. <Love Quiñonez PA-C - Last Filed: 01/24/25 09:16> This visit was performed by both a physician and an APC. I performed all aspects of the MDM as documented. Patient presents with active GI bleed symptoms including multiple bright red bloody bowel movements. She had a large voluminous bowel movement here in the emergency department that was bright red with clots and had a near syncopal episode. Hemodynamically remained stable, hemoglobin on initial presentation was 13 and repeat H&H decreased to 10. We did speak to the hospitalist team and the gastrointestinal team here who felt given patient's acute GI bleeding on CT scan and large hemoglobin drop she warranted higher level of care and transfer for potential IR interventions. [facility] as well as [facility] transfer systems were made aware and she was accepted to the [facility] ICU with bed pending. Patient remains hemodynamically stable on re-evaluations. Serial H&Hs was ordered. [facility] hospitalist called with a bed assignment and EMS ALS transportation was arranged and patient left the facility in stable condition. <Flaco Jane MD - Last Filed: 01/22/25 07:13> Consultations Consultation #1: Spoke with hospitalist about GI about patient and workup. Concern for need for IR, recommend transfer for higher level of care <Love Quiñonez PA-C - Last Filed: 01/24/25 09:16> Date: 01/21/25 <Love Quiñonez PA-C - Last Filed: 01/24/25 09:16> Consultation #2: Reached out to [place] who has a large wait list <Love Quiñonez PA-C - Last Filed: 01/24/25 09:16> Date: 01/21/25 <Love Quiñonez PA-C - Last Filed: 01/24/25 09:16> Consultation #3: Spoke with Hospitalist at [place], Dr. Ndiaye, about patient and workup who accepts patient as transfer <Love Quiñonez PA-C - Last Filed: 01/24/25 09:16> Date: 01/22/25 <Love Quiñonez PA-C - Last Filed: 01/24/25 09:16> Additional Consultation(s): Spoke with [facility] ICU Dr. Martinez about patient and workup who accepts patient as transfer to [facility] <ERIN Jauregui Last Filed: 01/24/25 09:16> Vital Signs Vital signs: Vital Signs Temperature 98.3 F 01/21/25 21:42 Pulse Rate 89 01/21/25 21:42 Respiratory Rate 17 01/21/25 21:42 Blood Pressure 157/78 H 01/21/25 21:42 Pulse Oximetry 99 01/21/25 21:42 Oxygen Delivery Room Air 01/21/25 21:42 Temperature 98.3 F 01/21/25 21:42 Pulse Rate 73 01/22/25 06:34 Respiratory Rate 13 01/22/25 06:34 Blood Pressure 126/61 01/22/25 06:34 Pulse Oximetry 99 01/22/25 06:34 Oxygen Delivery Room Air 01/21/25 21:42 <Love Quiñonez PA-C - Last Filed: 01/24/25 09:16> Vital Signs Temperature 98.3 F 01/21/25 21:42 Pulse Rate 89 01/21/25 21:42 Respiratory Rate 17 01/21/25 21:42 Blood Pressure 157/78 H 01/21/25 21:42 Pulse Oximetry 99 01/21/25 21:42 Oxygen Delivery Room Air 01/21/25 21:42 Temperature 98.3 F 01/21/25 21:42 Pulse Rate 73 01/22/25 06:34 Respiratory Rate 13 01/22/25 06:34 Blood Pressure 126/61 01/22/25 06:34 Pulse Oximetry 99 01/22/25 06:34 Oxygen Delivery Room Air 01/21/25 21:42 <Flaco Jane MD - Last Filed: 01/22/25 07:13> MDM - Abdominal Pain MDM Narrative Medical decision making narrative: Patient presents to the emergency department for GI bleeding. Reports several bloody bowel movements tonight. She has had several large bloody bowel movements in the ER as well as a near syncopal episode. Her vitals have remained stable. Initial hemoglobin 13.3. This is been monitored. She has dropped to 9.6 over the last 4-1/2 hours. Metabolic panel without concerning findings. CT abdomen and pelvis shows active intraluminal colonic hemorrhage in the distal descending colon. Spoke with hospitalist about GI about patient and workup. Concern for need for IR, recommend transfer for higher level of care. Patient has been accepted to be transferred at [facility] as well as [facility]. We are awaiting bed placement. Care taken over by Dr. Jane at shift change <Love Quiñonez PA-C - Last Filed: 01/24/25 09:16> Differential Diagnosis Differential diagnosis: Likely diverticulitis and other (colitis, GI bleed, hemorrhoid) <Love Quiñonez PA-C - Last Filed: 01/24/25 09:16> Lab Data Attestation: I reviewed the patient's lab results. <Love Quiñonez PA-C - Last Filed: 01/24/25 09:16> Result diagrams: 01/22/25 02:37 01/21/25 21:49 <Love Quiñonez PA-C - Last Filed: 01/24/25 09:16> Labs: Lab Results 01/21/25 01/21/25 01/22/25 Range/Units 21:49 23:32 02:37 WBC 12.8 H (4.5-10.0) K/mm3 RBC 3.82 L (4.2-5.4) M/mm3 Hgb 13.3 10.5 L 9.6 L (12.0-15.0) g/dL Hct 40.1 31.8 L 29.7 L (37.0-47.0) % MCV 105.0 H (80-100) fl MCH 34.8 H (26-34) pg MCHC 33.2 (32-36) g/dl RDW 13.5 (11.5-14.5) % Plt Count 629 H (150-375) k/mm3 MPV 9.1 (7.4-10.4) fl Immature Gran % (Auto) 0.9 H (0-0.5) % Neut % (Auto) 74.6 H (45.5-73.1) % Lymph % (Auto) 16.0 L (18.3-44.2) % [place] % (Auto) 6.3 (2.6-8.5) % Eos % (Auto) 1.8 (0-4.4) % Baso % (Auto) 0.4 (0.2-1.2) % Lymph # (Auto) 2.04 (0.9-3.2) K/mm3 [place] # (Auto) 0.8 H (0.1-0.6) K/mm3 Eos # (Auto) 0.2 (0-0.3) K/mm3 Baso # (Auto) 0.1 (0.0-0.1) K/mm3 Abs Immat Gran (auto) 0.12 H (0.00-0.031) K/mm3 Absolute Neuts (auto) 9.5 H (1.3-6.7) K/mm3 Absolute Nucleated RBC 0.000 (0.0-0.012) K/mm3 Nucleated RBC % 0.0 (0.0-0.2) % PT 15.1 H (11.1-14.7) Seconds INR 1.2 APTT 34.0 (22.3-36.8) Seconds Sodium 137 (137-145) mmol/L Potassium 4.0 (3.4-5.0) mmol/L Chloride 105 (98-107) mmol/L Carbon Dioxide 25 (22-30) mmol/L Anion Gap 7 (4-12) mmol/L BUN 20 H (7-17) mg/dL Creatinine 0.78 (0.7-1.0) mg/dL Estim Creat Clear Calc 48 ml/min Estimated GFR > 60 (59 - ) Glucose 129 H (65-110) mg/dL Calcium 9.0 (8.4-10.2) mg/dL Total Bilirubin 0.5 (0.2-1.3) mg/dL AST 34 (14-36) U/L ALT 19 (6-35) U/L Alkaline Phosphatase 60 (38-126) U/L Total Protein 7.1 (6.3-8.2) g/dL Albumin 4.1 (3.5-5.1) g/dL Blood Type O Positive Antibody Screen Negative <Love Quiñonez PA-C - Last Filed: 01/24/25 09:16> Lab Results 01/21/25 01/21/25 01/22/25 Range/Units 21:49 23:32 02:37 WBC 12.8 H (4.5-10.0) K/mm3 RBC 3.82 L (4.2-5.4) M/mm3 Hgb 13.3 10.5 L 9.6 L (12.0-15.0) g/dL Hct 40.1 31.8 L 29.7 L (37.0-47.0) % MCV 105.0 H (80-100) fl MCH 34.8 H (26-34) pg MCHC 33.2 (32-36) g/dl RDW 13.5 (11.5-14.5) % Plt Count 629 H (150-375) k/mm3 MPV 9.1 (7.4-10.4) fl Immature Gran % (Auto) 0.9 H (0-0.5) % Neut % (Auto) 74.6 H (45.5-73.1) % Lymph % (Auto) 16.0 L (18.3-44.2) % [place] % (Auto) 6.3 (2.6-8.5) % Eos % (Auto) 1.8 (0-4.4) % Baso % (Auto) 0.4 (0.2-1.2) % Lymph # (Auto) 2.04 (0.9-3.2) K/mm3 [place] # (Auto) 0.8 H (0.1-0.6) K/mm3 Eos # (Auto) 0.2 (0-0.3) K/mm3 Baso # (Auto) 0.1 (0.0-0.1) K/mm3 Abs Immat Gran (auto) 0.12 H (0.00-0.031) K/mm3 Absolute Neuts (auto) 9.5 H (1.3-6.7) K/mm3 Absolute Nucleated RBC 0.000 (0.0-0.012) K/mm3 Nucleated RBC % 0.0 (0.0-0.2) % PT 15.1 H (11.1-14.7) Seconds INR 1.2 APTT 34.0 (22.3-36.8) Seconds Sodium 137 (137-145) mmol/L Potassium 4.0 (3.4-5.0) mmol/L Chloride 105 (98-107) mmol/L Carbon Dioxide 25 (22-30) mmol/L Anion Gap 7 (4-12) mmol/L BUN 20 H (7-17) mg/dL Creatinine 0.78 (0.7-1.0) mg/dL Estim Creat Clear Calc 48 ml/min Estimated GFR > 60 (59 - ) Glucose 129 H (65-110) mg/dL Calcium 9.0 (8.4-10.2) mg/dL Total Bilirubin 0.5 (0.2-1.3) mg/dL AST 34 (14-36) U/L ALT 19 (6-35) U/L Alkaline Phosphatase 60 (38-126) U/L Total Protein 7.1 (6.3-8.2) g/dL Albumin 4.1 (3.5-5.1) g/dL Blood Type O Positive Antibody Screen Negative <Flaco Jane MD - Last Filed: 01/22/25 07:13> Imaging Data Radiologist's impression: ITS Impressions Abdomen/Pelvis CT 01/21/25 23:06 IMPRESSION: Findings within the distal descending colon for which active intraluminal colonic hemorrhage is suspected, with contrast extravasation. These findings were given to Love Quiñonez at 11:15 PM on 01/21/2025 <Love Quiñonez PA-C - Last Filed: 01/24/25 09:16> ITS Impressions Abdomen/Pelvis CT 01/21/25 23:06 IMPRESSION: Findings within the distal descending colon for which active intraluminal colonic hemorrhage is suspected, with contrast extravasation. These findings were given to Love Quiñonez at 11:15 PM on 01/21/2025 <Flaco Jane MD - Last Filed: 01/22/25 07:13> Critical Care Time Critical Care Time Critical Care Time: Yes <Love Quiñonez PA-C - Last Filed: 01/24/25 09:16> Yes <Flaco Jane MD - Last Filed: 01/22/25 07:13> Total Critical Care Time: 35 <Love Quiñonez PA-C - Last Filed: 01/24/25 09:16> 75 <Flaco Jane MD - Last Filed: 01/22/25 07:13> Discharge Plan Discharge Clinical Impression: Acute GI bleeding, Acute blood loss anemia (ABLA) <Love Quiñonez PA-C - Last Filed: 01/24/25 09:16> Patient Disposition: Acute Care Hospital <Love Quiñonez PA-C - Last Filed: 01/24/25 09:16> Condition: Serious <Love Quiñonez PA-C - Last Filed: 01/24/25 09:16> Patient Language: Maori <Love Quiñonez PA-C - Last Filed: 01/24/25 09:16> Prescriptions: No Action Prolia 60 mg/mL syringe 60 mg subcut [id number] multivitamin [Daily Multi-Vitamin] Tablet 1 tablet PO DAILY Rx Instructions: only with solid food calcium citrate 200 mg (950 mg) tablet 400 mg PO DAILY Rx Instructions: only with solid food cholecalciferol (vitamin D3) 25 mcg (1,000 unit) capsule 25 mcg PO DAILY Rx Instructions: only with solid food hydroxyurea [Hydrea] 500 mg capsule 500 mg PO DAILY allopurinol 300 mg tablet 300 mg PO DAILY ergocalciferol (vitamin D2) [Vitamin D2] 1,250 mcg (50,000 unit) capsule 1,250 mcg PO WEEKLY <Love Quiñonez PA-C - Last Filed: 01/24/25 09:16> Follow-up/Referrals: aShil Diego, [Primary Care Provider] - <Love Quiñonez PA-C - Last Filed: 01/24/25 09:16>
[2025-01-21] MEDS: SODIUM CHLORIDE 0.9% IV 1,000 ML 999 ML IV CONT (23:22)
[2025-01-21 23:43] LABS: Hematocrit 31.8 % (37.0-47.0); Hemoglobin 10.5 g/dL (12.0-15.0)
[2025-01-22] VITALS (8 sets, daily range): BP systolic 118–126; BP diastolic 58–72; PULSE 73–83; RESP 11–16; O2SAT 97–100
[2025-01-22] MEDS: metroNIDAZOLE 500 MG/ISO 100ML 500 MG/100 ML BAG 100 MG IVPB (00:27)
[2025-01-22 02:41] LABS: Hematocrit 29.7 % (37.0-47.0); Hemoglobin 9.6 g/dL (12.0-15.0)
[2025-01-22] MEDS: LACTATED RINGERS 1,000 ML 100 ML IV CONT (04:54)
--- NOTE | 2025-01-22 05:00 | PC.NURSE ---
This RN received report from Shellie SLATER.
--- NOTE | 2025-01-22 05:17 | PC.NURSE ---
Mavis from [facility] called and informed this RN of accepting physician Dr. Priest. Pt will be going to ICU-490 bed 6. Report to be called to [phone].
--- NOTE | 2025-01-22 05:49 | PC.NURSE ---
Report was given to Darlene SLATER at 0521.
--- NOTE | 2025-01-22 06:20 | PC.NURSE ---
Patti at bedside for pt transfer. Darlene SLAETR from [facility] updated on pt eta.
== END 2025-01-22 06:23 | disposition short-term general hospital (02) ==
PROVIDERS: Student in an Organized Health Care Education/Training Program; Emergency Provider Physician Assistant; PCP Internal Medicine
DX: K92.2 Gastrointestinal hemorrhage, unspecified (principal); D62 Acute posthemorrhagic anemia; M81.0 Age-related osteoporosis without current pathological fracture; M19.90 Unspecified osteoarthritis, unspecified site; Z15.89 Genetic susceptibility to other disease; Z79.631 Long term (current) use of antimetabolite agent; Z79.620 Long term (current) use of immunosuppressive biologic
CPT/HCPCS: 36415; 74177; 80053; 85014; 85018; 85025; 85610; 85730; 86850; 86900; 86901; 87040; 96361; 96365; 96367; 99285; J0696; J1836; J7030; J7120; Q9967

== ENCOUNTER 2025-04-28 09:22 | Outpatient (CLI) | payer OTHER, SELFPAY ==
[2025-04-28 09:43] LABS: Hematocrit 40.6 % (37.0-47.0); Hemoglobin 12.8 g/dL (12.0-15.0); Immature Granulocyte Percent A 1.1 % (0-0.5); Lymphocytes Absolute Auto 1.40 K/mm3 (0.9-3.2); Mean Corpuscular HGB Conc 31.5 g/dl (32-36); Mean Corpuscular Hemoglobin 30.9 pg (26-34); Mean Corpuscular Volume 98.1 fl (80-100); Nucleated Red Blood Cells Absolute Auto 0.000 K/mm3 (0.0-0.012); Nucleated Red Blood Cells Perc 0.0 % (0.0-0.2); Platelet Count Result 675 k/mm3 (150-375); Red Blood Count 4.14 M/mm3 (4.2-5.4); White Blood Count 10.1 K/mm3 (4.5-10.0)
--- OUTSIDE RECORDS SUMMARY | 2025-04-28 10:14 | XMS_ITS | Clinical Summary ---
Author Organization [facility] Jose D Shine Address [address] [place] [address] Care Team Providers Care Repack Room Worker Name Role Phone Sahil Diego DO Primary Care Provider [phone] Allergies No known active allergies Medications cholecalcifero l, Vitamin D3, (VITAMIN D3) 25 mcg (1,000 unit) Capsule Take 1,000 Units by mouth daily. Active calcium citrate-vitami n d3 (CITRACAL D MAX) 315 mg-6.25 mcg (250 unit) Tablet Take 2 Tablets by mouth daily. Active aspirin (ECOTRIN EC) 81 mg Tablet, Delayed Release (E.C.) Starting 01/30: Take 1 Tablet (81 mg) by mouth daily. 30 Tablet 01/29/2025 7:41 PM CDT 5 Active saccharomyces boulardii (FLORASTOR) 250 mg Capsule Take 1 Capsule (250 mg) by mouth 2 times daily. 60 Capsule 01/29/2025 7:41 PM CDT 5 Active hydroxyurea (HYDREA) 500 mg capsule Take 1 Capsule (500 mg) by mouth daily. 90 Capsule 3 5 Active allopurinoL (ZYLOPRIM) 300 mg tablet Take 1 Tablet (300 mg) by mouth daily. 90 Tablet 3 5 Active Eliquis 5 mg tablet TAKE 1 TABLET BY MOUTH TWICE A DAY 180 Tablet 5 Active apixaban (ELIQUIS) 5 mg tablet Take 1 Tablet (5 mg) by mouth 2 times daily. 180 Tablet 5 025 Discontinued Active Problems Problem Noted Date Diagnosed Date Acute pulmonary embolism 01/28/2025 Hypokalemia 01/23/2025 Hypophosphatemia 01/23/2025 Macrocytosis 01/23/2025 Pre-syncope 01/22/2025 Diverticular hemorrhage 01/22/2025 Acute blood loss anemia 01/22/2025 Essential thrombocytosis 01/22/2025 Leukocytosis (leucocytosis) 01/22/2025 Encounters Date Type Department Care Team Description 04/16/2025 Refill [facility] Oncology and Hematology [facility] [address] [place] [address] Noé Curry MD 04/08/2025 External Device Data STL ABSTRACTION Provider, Abstract 04/02/2025 External Device Data STL ABSTRACTION Provider, Abstract 03/06/2025 [facility] Oncology and Hematology [facility] [address] [place] [address] Noé Curry MD Medication Questions 03/04/2025 External Device Data STL ABSTRACTION Provider, Abstract 03/04/2025 External Device Data STL ABSTRACTION Provider, Abstract 03/04/2025 External Device Data STL ABSTRACTION Provider, Abstract 02/25/2025 External Device Data STL ABSTRACTION Provider, Abstract 02/25/2025 External Device Data STL ABSTRACTION Provider, Abstract 02/06/2025 Refill [facility] Oncology and [facility] [address] [place] [address] Noé Curry MD 02/05/2025 Telephone [facility] Oncology and Hematology [facility] [address] [place] [address] Noé Curry MD PE Questions [facility] [address] [place] [address] Noé Curry MD 01/28/2025 External Device Data STL ABSTRACTION Provider, Abstract 01/28/2025 External Device Data STL ABSTRACTION Provider, Abstract 01/28/2025 External Device Data STL ABSTRACTION Provider, Abstract 01/27/2025 8:00 PM CDT - 01/29/2025 7:47 PM CDT Hospital Encounter [facility] [address] [place] [address] Tj Saucedo MD Caffrey, MD Mar Gutierrez, MD Rick Maki Samantha, DO Acute pulmonary embolism (CMS/HCC) Discharge Disposition: Home or Self Care 01/27/2025 Travel from Last 3 Months Family History Medical [...] drink = 0.6 oz pur e alcohol) Feeling Safe Answer Date Recorded Are you in a relationship wi th someone who hurts you emotionally and/or physically? No 01/27/2025 Food Insecurity Answer Date Recorded Patient needs follow up regardin 01/22/2025 Transportation Needs Answer Date Record ed Patient needs follow up regardin 01/22/2025 Utility Needs Answer Date Recorded Patient needs follow up regardin 01/22/2025 Comments Unknown Sex and Gender Information Value Date Recorded Sex Assigned at Not on file Legal Sex Female 1:48 PM CDT Gender Identity Not on file Sexual Orientation Not on file Last Filed Vital Signs Vital Sign Reading Time Taken Comments Blood Pressure 135/68 01/29/2025 4:18 PM CDT Pulse 83 01/29/2025 4:18 PM CDT Temperature 36.7 C (98.1 F) 01/29/2025 4:18 PM CDT Respiratory Rate 17 01/29/2025 4:18 PM CDT Oxygen Saturation 98% 01/29/2025 4:18 PM CDT Inhaled Oxygen Concentration - - Weight 65.6 kg (144 lb 11.2 oz) 01/28/2025 4:35 AM CDT Height 160 cm (5' 3) 01/27/2025 6:58 PM CDT Body Mass Index 25.63 01/27/2025 6:58 PM CDT Plan of Treatment Upcoming Encounters Date Type Department Care Team (Late st Contact Info) Description 05/06/2025 11:15 AM CDT Office Visit [facility] Oncology and Hematology - [place] [address] [place] [address] Noé Curry MD [address] [facility] [address] [place] [address] Health Maintenance Due Date Last Done Comments Pre-Diabetes and Diabetes Screening 1955 Traditional Medicare (ACO) A nnual Wellness Visit 1973 FIT-DNA Q 3 years 1999 FIT/FOBT Q 1 year 1999 Flex Sig/CT Colonography Q 5 years 1999 PNEUMOCOCCAL VACCINE 50+ YEA RS (1 of 1 - PCV) 2004 ZOSTER VACCINE (1 of 2) 2004 Preventative Visit- Commercial 08/07/2024 INFLUENZA VACCINE (#1) 2025 BREAST CANCER SCREENING 06/19/2025 06/19/20, 06/19/2024, 03/14/2023, Additional history exists DTAP/TDAP/TD VACCINES (2 - T d or Tdap) 03/08/2028 03/08/2018 RSV VACCINE (60+ or ) (1 - 1-dose 75+ series) 2029 OSTEOPOROSIS SCREENING 01/15/2030 , 01/15/2025, 11/02/2023, Additional history exists COLORECTAL SCREENING 01/23/2030 01/23/2025, 01/24/20 Colorectal Cancer Screening 01/23/2030 Procedures Procedure Name Priority Date/Time Associated Diagnosis Comments ECHO COMPLETE Routine 01/29/2025 2:45 PM CDT US VENOUS DOPPLER LEG BILATERAL Stat 01/28/2025 2:37 PM CDT UNFRACTIONATED HEPARIN ACTIVITY Timed Study 01/28/2025 2:23 PM CDT GI PATHOGEN PCR PANEL Stat 01/28/2025 8:15 AM CDT EXTRA TUBE (LAV) Routine 01/28/2025 5:53 AM CDT EXTRA TUBE Routine 01/28/2025 5:53 AM CDT UNFRACTIONATED HEPARIN ACTIVITY Timed Study 01/28/2025 5:53 AM CDT TROPONIN 6 HR, 5TH GEN Timed Study 5:53 AM CDT PTT Stat 01/27/2025 11:19 PM CDT CBC WITHOUT DIFFERENTIAL Stat 01/27/2025 11:19 PM CDT PROCALCITONIN Stat 01/27/2025 11:19 PM CDT C-REACTIVE PROTEIN Stat 01/27/2025 10 :33 PM CDT TROPONIN 2 HR, 5TH GEN Timed Study 10:33 PM CDT CRITICAL CARE Routine 01/27/2025 10:32 PM CDT XR CHEST PA OR AP 1 VW Stat 10:13 PM CDT CTA CHEST W WO CONTRAST Stat 01/27/2025 9:47 PM CDT COMPREHENSIVE METABOLIC PANEL Stat 01/27/2025 8:12 PM CDT TROPONIN BASELINE, 5TH GEN Stat 01/27/2025 8:12 PM CDT BRAIN NATRIURETIC PEPTIDE, BNP OR PROBNP Stat 01/27/2025 8:12 PM CDT CBC WITH DIFFERENTIAL Stat 01/27/2025 8:12 PM CDT EKG 12-LEAD Stat 01/27/2025 7:06 PM CDT COLONOSCOPY REPORT 01/23/2025 10 :34 AM CDT from Last 3 Months or Most Recently Relevant to Health Maintenance Results * ECHO COMPLETE - CONTRAST AND STRAIN IF INDICATED (01/29/2025 2:45 PM CDT) EJECTION FRACTION 64 INTERFACE SYSTEM 01/29/2025 1:59 PM CDT Narrative INTERFACE SYSTEM - 01/29/2025 3:10 [place] [address] [email or web address] Transthoracic Echocardiogram Patient: David Stephen Study ID: ECHO COMPLETE - Gender: F : 1955 Age: 69 Race: [facility] Height 160cm Study Date: 01/29/2025 Weight: 65.6kg Access. #: [id number] BP: *Referring Physician:Zara Patel Daniel J *Ordering Physician:Zara Patel tying machine operator lumber: Nurse: Indications: PE. STUDY CONCLUSIONS: SUMMARY: - Left ventricle: The cavity size was normal. Wall thickness was normal. Global systolic function is normal. For Epic reporting: the left ventricular ejection fraction is 64% . Diastolic function assessment consistent with abnormal left ventricular relaxation (grade 1 diastolic dysfunction). - Left atrium: The atrium is normal in size. - Right ventricle: The cavity size is normal. Systolic function is normal. - Pulmonary arteries: Systolic pressure was within the normal range. Cardiac Anatomy: LEFT VENTRICLE: The cavity size was normal. Wall thickness was normal. Global systolic function is normal. For Epic reporting: the left ventricular ejection fraction is 64% . Wall motion is normal; there are no regional wall motion abnormalities. Diastolic function assessment consistent with abnormal left ventricular relaxation (grade 1 diastolic dysfunction). AORTIC VALVE: Structurally normal valve. Trileaflet. There was no stenosis. No significant regurgitation. The mean systolic gradient is 12mm Hg. The peak systolic gradient is 21mm Hg. The LVOT to aortic valve VTI ratio is 0.91. The valve area is 2.6cm^2. The ratio of LVOT to aortic valve peak velocity is 0.92. AORTA: Aortic root: The root is normal-sized. MITRAL VALVE: Structurally normal valve. There is no evidence for stenosis. Trace regurgitation. The peak diastolic gradient is 6mm Hg. LEFT ATRIUM: The atrium is normal in size. RIGHT VENTRICLE: The cavity size is normal. Systolic function is normal. PULMONIC VALVE: Structurally normal valve. No significant regurgitation. TRICUSPID VALVE: Structurally normal valve. Mild regurgitation. PULMONARY ARTERY: Systolic pressure was within the normal range. RIGHT ATRIUM: The atrium was normal in size. SYSTEMIC VEINS: Inferior vena cava: The IVC is normal-sized. PERICARDIUM: There is no pericardial effusion. Measurements Left ventricle Value Ref IVS, ED, LAX (H) 1.1 cm 0.6 - 0.9 MYRNA, LAX (L) 2.5 cm 3.8 - 5.2 MYRNA/bsa, LAX (L) 1.5 cm/m^2 2.3 - 3.1 MYRNA, LAX chord (N) 4.5 cm 3.8 - 5.2 ESD, LAX chord (N) 2.5 cm 2.2 - 3.5 MYRNA/bsa, LAX chord (N) 2.7 cm/m^2 2.3 - 3.1 ESD/bsa, LAX chord (N) 1.5 cm/m^2 1.3 - 2.1 FS, LAX chord (N) 44 % 27 - 45 IVS, ED (H) 1.1 cm 0.6 - 0.9 PW, ED (H) 1.1 cm 0.6 - 0.9 EDV, 2-p (N) 92 ml 46 - 106 ESV, 2-p (N) 33 ml 14 - 42 EF, 2-p (N) 64 % 54 - 74 SV, 2-p 59 ml --------- SV/bsa, 2-p 34.9 ml/m^2 --------- E', lat cleo, TDI (N) 10.4 cm/sec >=10.0 E/e', lat cleo, TDI (N) 12 <=13 E', med cleo, TDI (N) 12.0 cm/sec >=7.0 E/e', med cleo, TDI 10 --------- E', avg, TDI 11.2 cm/sec --------- E/e', avg, TDI (N) 11 <=14 LVOT Value Ref Diam, S 1.9 cm --------- Area 2.8 cm^2 --------- Peak zari, S 2.11 m/sec --------- VTI, S 41.9 cm --------- Peak grad, S 18 mm Hg --------- Right ventricle Value Ref MYRNA minor ax, A4C base (N) 3.8 cm 2.5 - 4.1 MYRNA minor ax, A4C mid (N) 2.9 cm 1.9 - 3.5 MYRNA major ax, A4C (N) 7.5 cm 5.9 - 8.3 TAPSE, MM (N) 2.9 cm >=1.7 Pressure, S 26 mm Hg --------- S' lateral (N) 22.7 cm/sec >=9.5 Left atrium Value Ref AP dim, ES (N) 2.8 cm 2.7 - 3.8 AP dim index, ES (N) 1.7 cm/m^2 1.5 - 2.3 SI dim, A4C 6.4 cm --------- Area ES, A4C (N) 20 cm^2 <=20 Area/bsa ES, A4C 11.78 cm^2/m^2 --------- SI dim, A2C 4.6 cm --------- SI dim, shorter 4.6 cm --------- Vol, ES, 1-p A2C (N) 45 ml 22 - 52 Vol/bsa, ES, 1-p A2C (N) 26 ml/m^2 13 - 40 LA/Ao root ratio 1 --------- Right atrium Value Ref SI dim, ES, A4C (N) 4.4 cm 3.4 - 5.3 SI dim/bsa, ES, A4C (N) 2.6 cm/m^2 1.9 - 3.1 Area, ES, A4C (N) 15 cm^2 10 - 18 Vol, ES, 1-p A4C 41 ml --------- Vol/bsa, ES, 1-p A4C (N) 24 ml/m^2 9 - 33 Aortic valve Value Ref Peak v, S 2.3 m/sec --------- Mean v, S 1.65 m/sec --------- VTI, S 46.2 cm --------- Mean grad, S 12 mm Hg --------- Peak grad, S 21 mm Hg --------- LVOT/AV, VTI ratio 0.91 --------- KERI, VTI 2.6 cm^2 --------- KERI/bsa, VTI 1.53 cm^2/m^2 --------- LVOT/AV, Vpeak ratio 0.92 --------- KERI, Vmax 2.6 cm^2 --------- KERI/bsa, Vmax 1.55 cm^2/m^2 --------- Mitral valve Value Ref Peak E 1.2 m/sec --------- Peak A 1.3 m/sec --------- Decel time 183 ms --------- PHT 54 ms --------- Peak grad, D 6 mm Hg --------- Peak E/A ratio 0.9 --------- MVA, PHT 4.1 cm^2 --------- MVA/bsa, PHT 2.41 cm^2/m^2 --------- Pulmonic valve Value Ref Peak v, S 1.08 m/sec --------- Peak grad, S 5 mm Hg --------- Tricuspid valve Value Ref TR peak v (N) 2.2 m/sec <=2.8 Peak RV-RA grad, S 21 mm Hg --------- Aortic root Value Ref Root diam, 2.8 cm --------- Ascending aorta Value Ref AAo AP diam, S 2.8 cm --------- AAo AP diam/bsa, S 1.7 cm/m^2 --------- Pulmonary artery Value Ref Pressure, S 21 mm Hg --------- Systemic veins Value Ref Estimated RA pressure 5 mm Hg --------- Legend: (L) and (H) jayden values outside specified reference range. (N) lunsford values inside specified reference range. Procedure data: Procedure information: A transthoracic echocardiogram was performed. Scanning was performed from the parasternal, apical, and subcostal acoustic windows. Transthoracic echocardiogram. Complete 2D, complete spectral Doppler, and color Doppler. Birthdate: Patient birthdate: 1955. Age: Patient is 69year(s) old. Sex: gender: female. Height: 160cm. 63in. Weight: 65.6kg. 144.7lb. Body mass index: 25.6kg/m^2. Body surface area: 1.69m^2. Study date: Study date: 01/29/2025. Study time: 01:59 PM. Prepared and Electronically Authenticated Lea Vasques MD [id number]:07 Procedure Note Lea Vasques MD - 01/29/2025 [place] [address] [email or web address] Transthoracic Echocardiogram Patient: David Stephen Study ID: ECHO COMPLETE - Gender: F : 1955 Age: 69 Race: CAU Height 160cm Study Date: 01/29/2025 Weight: 65.6kg Access. #: [id number] BP: *Referring Physician:Zara Patel Daniel J *Ordering Physician:Zara Patel tying machine operator lumber: Nurse: Indications: PE. STUDY CONCLUSIONS: SUMMARY: - Left ventricle: The cavity size was normal. Wall thickness was normal. Global systolic function is normal. For Epic reporting: the leftventricular ejection fraction is 64% . Diastolic function assessment consistentwith abnormal left ventricular relaxation (grade 1 diastolic dysfunction). - Left atrium: The atrium is normal in size. - Right ventricle: The cavity size is normal. Systolic function isnormal. - Pulmonary arteries: Systolic pressure was within the normal range. Cardiac Anatomy: LEFT VENTRICLE: The cavity size was normal. Wall thickness was normal.Global systolic function is normal. For Epic reporting: the left ventricularejection fraction is 64% . Wall motion is normal; there are no regional wallmotion abnormalities. Diastolic function assessment consistent with abnormalleft ventricular relaxation (grade 1 diastolic dysfunction). AORTIC VALVE: Structurally normal valve. Trileaflet. There was nostenosis. No significant regurgitation. The mean systolic gradient is 12mm Hg.The peak systolic gradient is 21mm Hg. The LVOT to aortic valve VTI ratio is0.91. The valve area is 2.6cm^2. The ratio of LVOT to aortic valve peak velocityis 0.92. AORTA: Aortic root: The root is normal-sized. MITRAL VALVE: Structurally normal valve. There is no evidence for stenosis. Trace regurgitation. The peak diastolic gradient is 6mm Hg. LEFT ATRIUM: The atrium is normal in size. RIGHT VENTRICLE: The cavity size is normal. Systolic function isnormal. PULMONIC VALVE: Structurally normal valve. No significantregurgitation. TRICUSPID VALVE: Structurally normal valve. Mild regurgitation. PULMONARY ARTERY: Systolic pressure was within the normal range. RIGHT ATRIUM: The atrium was normal in size. SYSTEMIC VEINS: Inferior vena cava: The IVC is normal-sized. PERICARDIUM: There is no pericardial effusion. Measurements Left ventricle Value Ref IVS, ED, LAX (H) 1.1 cm 0.6 - 0.9 MYRNA, LAX (L) 2.5 cm 3.8 - 5.2 MYRNA/bsa, LAX (L) 1.5 cm/m^2 2.3 - 3.1 MYRNA, LAX chord (N) 4.5 cm 3.8 - 5.2 ESD, LAX chord (N) 2.5 cm 2.2 - 3.5 MYRNA/bsa, LAX chord (N) 2.7 cm/m^2 2.3 - 3.1 ESD/bsa, LAX chord (N) 1.5 cm/m^2 1.3 - 2.1 FS, LAX chord (N) 44 % 27 - 45 IVS, ED (H) 1.1 cm 0.6 - 0.9 PW, ED (H) 1.1 cm 0.6 - 0.9 EDV, 2-p (N) 92 ml 46 - 106 ESV, 2-p (N) 33 ml 14 - 42 EF, 2-p (N) 64 % 54 - 74 SV, 2-p 59 ml --------- SV/bsa, 2-p 34.9 ml/m^2 --------- E', lat cleo, TDI (N) 10.4 cm/sec >=10.0 E/e', lat cleo, TDI (N) 12 <=13 E', med cleo, TDI (N) 12.0 cm/sec >=7.0 E/e', med cleo, TDI 10 --------- E', avg, TDI 11.2 cm/sec --------- E/e', avg, TDI (N) 11 <=14 LVOT Value Ref Diam, S 1.9 cm --------- Area 2.8 cm^2 --------- Peak zari, S 2.11 m/sec --------- VTI, S 41.9 cm --------- Peak grad, S 18 mm Hg --------- Right ventricle Value Ref MYRNA minor ax, A4C base (N) 3.8 cm 2.5 - 4.1 MYRNA minor ax, A4C mid (N) 2.9 cm 1.9 - 3.5 MYRNA major ax, A4C (N) 7.5 cm 5.9 - 8.3 TAPSE, MM (N) 2.9 cm >=1.7 Pressure, S 26 mm Hg --------- S' lateral (N) 22.7 cm/sec >=9.5 Left atrium Value Ref AP dim, ES (N) 2.8 cm 2.7 - 3.8 AP dim index, ES (N) 1.7 cm/m^2 1.5 - 2.3 SI dim, A4C 6.4 cm --------- Area ES, A4C (N) 20 cm^2 <=20 Area/bsa ES, A4C 11.78 cm^2/m^2 --------- SI dim, A2C 4.6 cm --------- SI dim, shorter 4.6 cm --------- Vol, ES, 1-p A2C (N) 45 ml 22 - 52 Vol/bsa, ES, 1-p A2C (N) 26 ml/m^2 13 - 40 LA/Ao root ratio 1 --------- Right atrium Value Ref SI dim, ES, A4C (N) 4.4 cm 3.4 - 5.3 SI dim/bsa, ES, A4C (N) 2.6 cm/m^2 1.9 - 3.1 Area, ES, A4C (N) 15 cm^2 10 - 18 Vol, ES, 1-p A4C 41 ml --------- Vol/bsa, ES, 1-p A4C (N) 24 ml/m^2 9 - 33 Aortic valve Value Ref Peak v, S 2.3 m/sec --------- Mean v, S 1.65 m/sec --------- VTI, S 46.2 cm --------- Mean grad, S 12 mm Hg --------- Peak grad, S 21 mm Hg --------- LVOT/AV, VTI ratio 0.91 --------- KERI, VTI 2.6 cm^2 --------- KERI/bsa, VTI 1.53 cm^2/m^2 --------- LVOT/AV, Vpeak ratio 0.92 --------- KERI, Vmax 2.6 cm^2 --------- KERI/bsa, Vmax 1.55 cm^2/m^2 --------- Mitral valve Value Ref Peak E 1.2 m/sec --------- Peak A 1.3 m/sec --------- Decel time 183 ms --------- PHT 54 ms --------- Peak grad, D 6 mm Hg --------- Peak E/A ratio 0.9 --------- MVA, PHT 4.1 cm^2 --------- MVA/bsa, PHT 2.41 cm^2/m^2 --------- Pulmonic valve Value Ref Peak v, S 1.08 m/sec --------- Peak grad, S 5 mm Hg --------- Tricuspid valve Value Ref TR peak v (N) 2.2 m/sec <=2.8 Peak RV-RA grad, S 21 mm Hg --------- Aortic root Value Ref Root diam, 2.8 cm --------- Ascending aorta Value Ref AAo AP diam, S 2.8 cm --------- AAo AP diam/bsa, S 1.7 cm/m^2 --------- Pulmonary artery Value Ref Pressure, S 21 mm Hg --------- Systemic veins Value Ref Estimated RA pressure 5 mm Hg --------- Legend: (L) and (H) jayden values outside specified reference range. (N) lunsford values inside specified reference range. Procedure data: Procedure information: A transthoracic echocardiogram was performed.Scanning was performed from the parasternal, apical, and subcostal acousticwindows. Transthoracic echocardiogram. Complete 2D, complete spectralDoppler, and color Doppler. Birthdate: Patient birthdate: 1955. Age:Patient is 69year(s) old. Sex: gender: female. Height: 160cm. 63in.Weight: 65.6kg. 144.7lb. Body mass index: 25.6kg/m^2. Body surface area: 1.69m^2. Study date: Study date: 01/29/2025. Study time: 01:59 PM. Prepared and Electronically Authenticated Lea Vasques MD [id number]:10:07 us Zara Cabrera DO US ORDERABLES Final Result INTERFACE SYSTEM Refer to clinic/hospital department * US VENOUS DOPPLER LEG BILATERAL (01/28/2025 2:37 PM CDT) Anatomical Region Laterality Modality Lower Extremity Ultrasound 01/28/2025 10:4 5 AM CDT Narrative 01/29/2025 6:01 AM CDT [address] [place] [place] [address] [email or web address] Venous Exam Complete Lower Extremity Duplex Patient: David Stephen Study ID: [id number] Gender: F : 1955 Age: 69 Race: CAU Height Study Date: 01/28/2025 Weight: Access. #: [id number] *Referring Physician:* Tj Saucedo Daniel J *Ordering Physician:* Tj Saucedo *Coke Oven Patcher:* Magy Arredondo History: Swelling of both lower extremities. No previous DVT. Dyspnea. Acute pulmonary embolism. PMH: No prior study is available for comparison. Risk factors: Immobility - s/p hospitalization. Study data: [facility] Study status: Routine. Procedure: A vascular evaluation was performed. Image quality was good. Complete lower extremity venous duplex evaluation. Doppler flow study including spectral analysis, color and gaming scale imaging. Birthdate: Patient birthdate: 1955. Age: Patient is 69year(s) old. Sex: gender: female. Study date: Study date: 01/28/2025. Study time: 10:45 AM. Location: Vascular laboratory. Patient status: Inpatient. Impressions 1. No evidence of deep vein thrombosis involving the right lower extremity. 2. Acute superficial vein thrombosis involving the left soleal vein. Tables: Venous flow: + + + +--------+ !Location !Overall !Flow properties !Thrombus! + + + +--------+ !Right common femoral!Patent !Phasic; spontaneous; normal!--------! !- ! !augmentation; compressible;! ! ! ! !no reflux ! ! + + + +--------+ !Right femoral - !Patent !Compressible !--------! + + + +--------+ !Right profunda !Patent !Compressible !--------! !femoral - ! ! ! ! + + + +--------+ !Right popliteal - !Patent !Phasic; spontaneous; normal!--------! ! ! !augmentation; compressible;! ! ! ! !no reflux ! ! + + + +--------+ !Right posterior !Patent !Compressible !--------! !tibial - ! ! ! ! + + + +--------+ !Right peroneal - !Patent !Compressible !--------! + + + +--------+ !Left common femoral !Patent !Phasic; spontaneous; normal!--------! !- ! !augmentation; compressible;! ! ! ! !no reflux ! ! + + + +--------+ !Left femoral - !Patent !Compressible !--------! + + + +--------+ !Left profunda !Patent !Compressible !--------! !femoral - ! ! ! ! + + + +--------+ !Left popliteal - !Patent !Phasic; spontaneous; normal!--------! ! ! !augmentation; compressible;! ! ! ! !no reflux ! ! + + + +--------+ !Left posterior !Patent !Compressible !--------! !tibial - ! ! ! ! + + + +--------+ !Left peroneal - !Patent !Compressible !--------! + + + +--------+ !Left soleal - !Totally thrombosed!Noncompressible !Acute ! + + + +--------+ *Velocities are expressed in cm/s, Diameters are expressed in mm Prepared and Electronically Authenticated Kenneth Quinones [id number] Procedure Note Kenneth Quinones MD - 01/29/[address] [place] [address] [email or web address] Venous Exam Complete Lower Extremity Duplex Patient: David Stephen Study ID: [id number] Gender: Michael : 1955 Age: 69 Race: [facility] Height Study Date: 01/28/2025 Weight: Access. #: [id number] *Referring Physician:* Tj Saucedo Daniel J *Ordering Physician:* Tj Saucedo *Coke Oven Patcher:* Magy Arredondo History: Swelling of both lower extremities. No previous DVT.Dyspnea. Acute pulmonary embolism. PMH: No prior study is available forcomparison. Risk factors: Immobility - s/p hospitalization. Study data: New node Study status: Routine. Procedure: A vascular evaluation was performed. Image quality was good. Complete lowerextremity venous duplex evaluation. Doppler flow study including spectralanalysis, color and gaming scale imaging. Birthdate: Patient birthdate:1955. Age: Patient is 69year(s) old. Sex: gender: female. Studydate: Study date: 01/28/2025. Study time: 10:45 AM. Location: Vascularlaboratory. Patient status: Inpatient. Impressions 1. No evidence of deep vein thrombosis involving the right lowerextremity. 2. Acute superficial vein thrombosis involving the left soleal vein. Tables: Venous flow: + + + +--------+ !Location !Overall !Flow properties!Thrombus! + + + +--------+ !Right common femoral!Patent !Phasic; spontaneous;normal!--------! !- ! !augmentation; compressible;!! ! ! !no reflux !! + + + +--------+ !Right femoral - !Patent !Compressible!--------! + + + +--------+ !Right profunda !Patent !Compressible!--------! !femoral - ! ! !! + + + +--------+ !Right popliteal - !Patent !Phasic; spontaneous;normal!--------! ! ! !augmentation; compressible;!! ! ! !no reflux !! + + + +--------+ !Right posterior !Patent !Compressible!--------! !tibial - ! ! !! + + + +--------+ !Right peroneal - !Patent !Compressible!--------! + + + +--------+ !Left common femoral !Patent !Phasic; spontaneous;normal!--------! !- ! !augmentation; compressible;!! ! ! !no reflux !! + + + +--------+ !Left femoral - !Patent !Compressible!--------! + + + +--------+ !Left profunda !Patent !Compressible!--------! !femoral - ! ! !! + + + +--------+ !Left popliteal - !Patent !Phasic; spontaneous;normal!--------! ! ! !augmentation; compressible;!! ! ! !no reflux !! + + + +--------+ !Left posterior !Patent !Compressible!--------! !tibial - ! ! !! + + + +--------+ !Left peroneal - !Patent !Compressible!--------! + + + +--------+ !Left soleal - !Totally thrombosed!Noncompressible !Acute! + + + +--------+ *Velocities are expressed in cm/s, Diameters are expressed in mm Prepared and Electronically Authenticated Kenneth Quinones [id number] us Zara Cabrera DO US ORDERABLES Final Result * UNFRACTIONATED HEPARIN MONITORING (01/28/2025 2:23 PM CDT) Only the most recent of2 resultswithin the time period is included. ANTI-XA UNFRAC HEP 0.31 See Interpreta tion. IU/mL 01/28/2025 3:24 PM CDT [facility] Blood Venipuncture / Unknown 01/28/2025 2:23 PM CDT 01/28/2025 2:52 PM CDT Narrative [facility] - 01/28/2025 3:24 PM CDT Unfractionated Heparin Therapeutic Range: 0.30-0.70 IU/ml Refer to pharmacy adult heparin protocol for further recommendation. The reference range for this test is specific to the anticoagulant and is not appropriate for monitoring patients on a DOAC protocol. Zara Cabrera DO HEMATOLOGY ORDERABLES Final Result Performing Organization Address City/[facility]/ZIP Co de Phone Number [facility] CLIA# [id number] [address] [place] [address] * (ABNORMAL) GI PATHOGEN PCR PANEL (01/28/2025 8:15 AM CDT) C difficile toxin A/B by PCR DETECTED( A) Not Detected 01/28/2025 9:56 AM CDT [facility] Comment: The [employer] GI PCR panel identifies the presence of C. difficile in the stool specimen but cannot differentiate between asymptomatic carriage and clinical infection. If clinically warranted, place patient in Contact Precautions-gown and gloves for every entry into patient rooms. Wash hands with soap and water. Stool STOOL SPECIMEN / Unknown Collection / Unknown 01/28/2025 8:15 AM CDT 01/28/2025 8:27 AM CDT Narrative [facility] - 01/28/2025 9:56 AM CDT The Film Array GI Panel is a multiplexed nucleic acid detection test for 22 targets of bacteria, viruses, and parasites in stool that cause infectious diarrhea. Bacteria: Campylobacter C. difficile Plesiomonas shigelloides Salmonella Vibrio Vibrio cholerae Yersinia enterocolitica Enteroaggregative E. Coli (EAEC) Enteropathogenic E. Coli (EPEC) Enterotoxigenic E. Coli (ETEC) Shiga-like toxin-producing E. Coli (STEC) E. Coli O157 Shigella/Enteroinvasive E. Coli (EIEC) Viruses: Adenovirus F 40/41 Astrovirus Norovirus GI/GII Rotavirus A Sapovirus Parasites: Cryptosporidium Cyclospora cayetanensis Entamoeba histolytica Giardia duodenalis Eugene Peoples MD MICROBIOLOGY - [employer] L ORDERABLES Final Result [facility]# [id number] [address] [place] [address] * EXTRA TUBE (LAV) (01/28/2025 5:53 AM CDT) Blood Venipuncture / Unknown 01/28/2025 5:53 AM CDT 01/28/2025 6:20 AM CDT External Provider [facility] HEMATOLOGY ORDERABLES Fi nal Result Performing Organization Address [facility]/ZIP Co de Phone Number [facility]# [id number] [address] [place] [address] * (ABNORMAL) TROPONIN 6 HR, 5TH GEN (01/28/2025 5:53 AM CDT) TROPONIN T, 6 HR 5TH GEN 12(H) <11 ng/L 01/28/2025 6:49 AM CDT [facility] LABORATORY [facility] DELTA 6HR TROPONIN T -10 See Interp. 01/28/2025 6:49 AM CDT [facility] LABORATORY [facility] Blood Venipuncture / Unknown 01/28/2025 5:53 AM CDT 01/28/2025 5:58 AM CDT Narrative [facility] LABORATORY [facility] - 01/28/2025 6:49 AM CDT Troponin elevated. Delta indeterminate. Delay in collection of timed specimen beyond recommended collection interval. Results must be interpreted in clinical context. Tj Saucedo MD CHEMISTRY ORDERABLES Final Re sult Performing Organization Address City/[facility]/ZIP Co de Phone Number [facility]# [id number] [address] [place] [address] * PROCALCITONIN (01/27/2025 11:19 PM CDT) PROCALCITONIN <0.06 <=0.25 ng/mL 01/27/2025 11:55 PM CDT [facility] Blood Venipuncture / Unknown 01/27/2025 11:19 PM CDT 01/27/2025 11:24 PM CDT Narrative [facility] - 01/27/2025 11:55 PM CDT The utility of procalcitonin is limited/NOT recommended in certain populations (e.g. newborns, dialysis/ESRD, patients with recent major surgery/trauma/yadav, liver cirrhosis, viral hepatitis, certain cancers, etc.). Procalcitonin levels MUST be interpreted in the context of the patient's clinical condition and CANNOT be solely relied upon for diagnosis of infection. <0.25 ng/mL: Bacterial infection unlikely, particularly lower respiratory tract infections. <0.5 ng/mL: Low risk for progression to severe sepsis/septic shock. Localized infection possible. Measurements done early (<6 hours) after systemic process starts may still be low. 0.5-2 ng/mL: Moderate risk for progression to severe sepsis/septic shock. >2 ng/mL: High risk for progression to severe sepsis/septic shock. If antibiotics ARE administered, repeat testing is recommended every 2-3 days to help guide antibiotic cessation. Once a decrease of 80% or more has occurred from baseline, discontinuation of antibiotics should strongly be considered in clinically stable patients. Procalcitonin is produced in the setting of systemic inflammation, particularly bacterial infections. It is detectable within 2-4 hours and peaks within 6-24 hours. Eugene Peoples MD CHEMISTRY ORDERABLES Final Result [facility]# [id number] [address] [place] [address] * PTT (01/27/2025 11:19 PM CDT) PTT 29.3 24.4 - 36.4 seconds 01/27/2025 11:41 PM CDT [facility] Comment: PTT Therapeutic Range: Heparin Level PTT (seconds) <0.10 units/mL <55.8 0.10 - 0.30 units/mL 55.8 - 74.3 0.30 - 0.70 units/mL* 74.3 - 111.2* 0.70 - 1.00 units/mL 111.2 - 138.9 *corresponds to therapeutic range for unfractionated heparin Blood Venipuncture / Unknown 01/27/2025 11:19 PM CDT 01/27/2025 11:23 PM CDT Eugene Peoples MD HEMATOLOGY ORDERABLES Final Result [facility] LAB[facility]ATORY SERVICES [facility] CLIA# [id number] [address] [facility] [place] [address] * (ABNORMAL) CBC WITHOUT DIFFERENTIAL (01/27/2025 11:19 PM CDT) WBC 18.1(H) 4.0 - 9.8 K/uL 01/27/2025 11:30 PM CDT [facility] LABORATORY SERVICES [facility] RBC 2.46(L) 3.90 - 4.90 M/uL 01/27/2025 11:30 PM CDT [facility] LABORATORY SERVICES [facility] HEMOGLOBIN 8.4(L) 11.8 - 14.8 g/dL 01/27/2025 11:30 PM T [facility] LABORATORY SERVICES [facility] HEMATOCRIT 26.3(L) 35.5 - 44.0 % 01/27/2025 11:30 PM T [facility] LABORATORY SERVICES [facility] MCV 106.9(H) 82.0 - 99.0 fL 01/27/2025 11:30 PM CDT [facility] LABORATORY SERVICES - [facility] MCH 34.1(H) 27.2 - 32.6 pg 01/27/2025 11:30 PM CDT [facility] LABORATORY SERVICES - [facility] MCHC 31.9 31.5 - 35.5 g/dL 01/27/2025 11:30 PM CDT [facility] LABORATORY SERVICES [facility] PLATELETS 729(H) 140 - 350 K/uL 01/27/2025 11:30 PM CDT [facility] LABORATORY SERVICES [facility] MPV 9.2(L) 9.3 - 12.4 fL 01/27/2025 11:30 PM CDT [facility] LABORATORY SERVICES - [facility] RDW 13.9 11.5 - 14.5 % 01/27/2025 11:30 PM CDT [facility] LABORATORY SERVICES - [facility] RDW-STDEV 53.4(H) 37.1 - 48.7 fL 01/27/2025 11:30 PM CDT [facility] LABORATORY [facility] Blood Venipuncture / Unknown 01/27/2025 11:19 PM CDT 01/27/2025 11:23 PM CDT Zara Cabrera DO HEMATOLOGY ORDERABLES Final Result [facility] CLIA# [id number] [address] [place] [address] * (ABNORMAL) TROPONIN 2 HR, 5TH GEN (01/27/2025 10:33 PM CDT) TROPONIN T, 2 HR 5TH GEN 12(H) <=10 ng/L 01/27/2025 11:24 PM CDT [facility] LABORATORY [facility] DELTA 2HR TROPONIN T -10(LL) See Interp. 01/27/2025 11:24 PM CDT [facility] LABORATORY [facility] Blood Venipuncture / Unknown 01/27/2025 10:33 PM CDT 01/27/2025 10:40 PM CDT Narrative [facility] LABORATORY [facility] - 01/27/2025 11:24 PM CDT Troponin elevated. Delta significant change. Tj Saucedo MD CHEMISTRY ORDERABLES Final Re sult [facility] CLIA# [id number] [address] [place] [address] * (ABNORMAL) C-REACTIVE PROTEIN (01/27/2025 10:33 PM CDT) CRP 11.1(H) <5.0 mg/L 01/27/2025 11:22 PM CDT [facility] Blood Venipuncture / Unknown 01/27/2025 10:33 PM CDT 01/27/2025 10:40 PM CDT Eugene Peoples MD CHEMISTRY ORDERABLES Final Result [facility] CLIA# [id number] [address] [facility] [place] [address] * Critical Care (01/27/2025 10:32 PM CDT) Narrative Eugene Peoples MD - 01/27/2025 10:32 PM CDT Eugene Peoples MD 01/28/2025 10:16 PM Critical Care Performed by: Eugene Peoples MD Authorized by: Eugene Peoples MD Critical care provider statement: Critical care time (minutes): 35 Critical care time was exclusive of: Separately billable procedures and treating other patients and teaching time Critical care was necessary to treat or prevent imminent or life-threatening deterioration of the following conditions: pulmonary embolism. Critical care was time spent personally by me on the following activities: Discussions with primary provider, evaluation of patient's response to treatment, examination of patient, re-evaluation of patient's condition, pulse oximetry, development of treatment plan with patient or surrogate, obtaining history from patient or surrogate, ordering and review of laboratory studies, ordering and review of radiographic studies and review of old charts I assumed direction of critical care for this patient from another provider in my specialty: no Care discussed with: admitting provider Eugene Peoples MD PROCEDURE/MINOR SURGI VALENTIN ORDERABLES Final Result * XR CHEST PA OR AP 1 VW (01/27/2025 10:13 PM CDT) Anatomical Region Laterality Modality Chest Computed Radiogr aphy 01/27/2025 10:1 3 PM CDT Impressions 01/27/2025 10:17 PM CDT IMPRESSION: No acute cardiopulmonary pathology. DICTATION LOCATION: Location 1 - [facility] Narrative 01/27/2025 10:17 PM CDT AP VIEW OF THE CHEST DATE: 01/27/2025 10:13 PM HISTORY: Shortness of breath COMPARISON: 01/22/2025 FINDINGS: The cardiomediastinal silhouette is normal in size. A calcified right apical granuloma is redemonstrated. No focal consolidation, pleural effusion or pneumothorax is noted. Procedure Note Sayda Gordon MD - 01/27/2025 AP VIEW OF THE CHEST DATE: 01/27/2025 10:13 PM HISTORY: Shortness of breath COMPARISON: 01/22/2025 FINDINGS: The cardiomediastinal silhouette is normal in size. A calcified right apical granuloma is redemonstrated. No focal consolidation, pleural effusion or pneumothorax is noted. IMPRESSION: No acute cardiopulmonary pathology. DICTATION LOCATION: Location [address] [place] [address] Tj Saucedo MD DIAGNOSTIC IMAGING ORDERABLES Final Result * CTA CHEST W WO CONTRAST (01/27/2025 9:47 PM CDT) Anatomical Region Laterality Modality Chest Computed Tomogra phy 01/27/2025 9:40 PM CDT Impressions 01/27/2025 10:04 PM CDT IMPRESSION: 1. Exam is positive for segmental and subsegmental pulmonary emboli in the right lung and subsegmental pulmonary emboli in the left lung, without evidence of right heart strain. Findings discussed with DR. TJ SAUCEDO at 10:02 PM on 01/27/2025. Dictation location: Location 4 Narrative 01/27/2025 10:04 PM CDT CTA CHEST W WO CONTRAST DATE: 01/27/2025 9:47 PM CLINICAL INDICATION: shortness of breath, leg pain, dyspnea on exertion. COMPARISON: None. CONTRAST: IOPAMIDOL 61 % INTRAVENOUS SOLUTION (MULTI-DOSE BULK PACK) Given:70 mL TECHNIQUE: Multiple enhanced axial CT images of the chest obtained per pulmonary embolism protocol after the intravenous contrast administration. Maximum intensity pixel projections (MIPs) were generated. The examination was performed with the adjustment of mA according to the patient size and/or the use of Iterative Reconstruction Technique. FINDINGS: Small filling defects in the segmental and subsegmental right upper, middle, and lower lobe pulmonary arteries, and subsegmental filling defects in the left lower lobar pulmonary arteries. No evidence of RIGHT ventricular strain. No thoracic aorta aneurysm or dissection. No coronary artery atherosclerotic calcifications. The axillary, mediastinal, and hilar lymph nodes are not enlarged. No pleural effusion, pneumothorax, or focal consolidation. Within the imaged portions of the upper abdomen, there is a possible punctate nonobstructing left kidney stone versus excreted IV contrast. The imaged bones are intact. Procedure Note Terrance Bowen MD - 01/27/2025 CTA CHEST W WO CONTRAST DATE: 01/27/2025 9:47 PM CLINICAL INDICATION: shortness of breath, leg pain, dyspnea on exertion. COMPARISON: None. CONTRAST: IOPAMIDOL 61 % INTRAVENOUS SOLUTION (MULTI-DOSE BULK PACK) Given:70 mL TECHNIQUE: Multiple enhanced axial CT images of the chest obtained per pulmonary embolism protocol after the intravenous contrast administration. Maximum intensity pixel projections (MIPs) were generated. The examination was performed with the adjustment of mA according to the patient size and/or the use of Iterative Reconstruction Technique. FINDINGS: Small filling defects in the segmental and subsegmental right upper, middle, and lower lobe pulmonary arteries, and subsegmental filling defects in the left lower lobar pulmonary arteries. No evidence of RIGHT ventricular strain. No thoracic aorta aneurysm or dissection. No coronary artery atherosclerotic calcifications. The axillary, mediastinal, and hilar lymph nodes are not enlarged. No pleural effusion, pneumothorax, or focal consolidation. Within the imaged portions of the upper abdomen, there is a possible punctate nonobstructing left kidney stone versus excreted IV contrast. The imaged bones are intact. IMPRESSION: 1. Exam is positive for segmental and subsegmental pulmonary emboli in the right lung and subsegmental pulmonary emboli in the left lung, without evidence of right heart strain. Findings discussed with DR. TJ SAUCEDO at 10:02 PM on 01/27/2025. Dictation location: Location [address] ORDERABLES Final Result * (ABNORMAL) TROPONIN BASELINE, 5TH GEN (01/27/2025 8:12 PM CDT) TROPONIN T, BASELINE 5TH GEN 22(H) <=10 ng/L 01/27/2025 8:58 PM CDT [facility] LABORATORY [facility] Blood Venipuncture / Unknown 01/27/2025 8:12 PM CDT 01/27/2025 8:19 PM CDT Narrative [facility] LABORATORY SERVICES - [facility] - 01/27/2025 8:58 PM CDT Troponin elevated. Tj Saucedo MD CHEMISTRY ORDERABLES Final Re sult [facility] LABORATORY SERVICES [facility] CLIA# [id number] [address] [facility] [place] [address] * (ABNORMAL) CBC WITH DIFFERENTIAL (01/27/2025 8:12 PM CDT) WBC 20.7(H) 4.0 - 9.8 K/uL 01/27/2025 8:26 PM CDT [facility] LABORATORY SERVICES [facility] RBC 2.76(L) 3.90 - 4.90 M/uL 01/27/2025 8:26 PM CDT [facility] LABORATORY [facility] HEMOGLOBIN 9.5(L) 11.8 - 14.8 g/dL 01/27/2025 8:26 PM CDT [facility] LABORATORY SERVICES - [facility] HEMATOCRIT 29.2(L) 35.5 - 44.0 % 01/27/2025 8:26 PM CDT [facility] LABORATORY SERVICES [facility] MCV 105.8(H) 82.0 - 99.0 fL 01/27/2025 8:26 PM CDT [facility] LABORATORY SERVICES - [facility] MCH 34.4(H) 27.2 - 32.6 pg 01/27/2025 8:26 PM CDT [facility] LABORATORY SERVICES [facility] MCHC 32.5 31.5 - 35.5 g/dL 01/27/2025 8:26 PM CDT [facility] LABORATORY SERVICES - [facility] RDW 14.0 11.5 - 14.5 % 01/27/2025 8:26 PM CDT [facility] LABORATORY SERVICES - [facility] RDW-STDEV 52.5(H) 37.1 - 48.7 fL 01/27/2025 8:26 PM CDT [facility] LABORATORY SERVICES - [facility] PLATELETS 856(H) 140 - 350 K/uL 01/27/2025 8:26 PM CDT [facility] LABORATORY SERVICES - [facility] MPV 9.3 9.3 - 12.4 fL 01/27/2025 8:26 PM CDT [facility] LABORATORY SERVICES - [facility] NEUTROPHILS 85 % 01/27/2025 8:26 PM CDT [facility] LABORATORY SERVICES - [facility] LYMPHOCYTES 8 % 01/27/2025 8:26 PM CDT [facility] LABORATORY SERVICES - . [facility] MONOCYTES 5 % 01/27/2025 8:26 PM CDT [facility] LABORATORY SERVICES - . [facility] EOSINOPHILS 1 % 01/27/2025 8:26 PM CDT [facility] LABORATORY SERVICES - [facility] BASOPHILS 0 % 01/27/2025 8:26 PM CDT [facility] LABORATORY SERVICES - . [facility] IMMATURE GRANULOCYTES 1 % 01/27/2025 8:26 PM CDT [facility] LABORATORY SERVICES - [facility] Comment:IG (Immature Granulo cyte) count includes Metamyelocytes, Myelocytes, and Promyelocytes NEUTROPHIL ABSOLUTE 17.53(H) 1.90 - 7.00 K/uL 01/27/2025 8:26 PM CDT [facility] LABORATORY SERVICES - . [facility] LYMPHOCYTE ABSOLUTE 1.75 0.70 - 4.50 K/uL 01/27/2025 8:26 PM CDT [facility] LABORATORY SERVICES - . [facility] MONOCYTE ABSOLUTE 1.08 0.10 - 1.30 K/uL 01/27/2025 8:26 PM CDT [facility] LABORATORY SERVICES - . [facility] EOSINOPHIL ABSOLUTE 0.13 0.00 - 0.70 K/uL 01/27/2025 8:26 PM CDT [facility] LABORATORY SERVICES - . [facility] BASOPHILS ABSOLUTE 0.06 0.00 - 0.20 K/uL 01/27/2025 8:26 PM CDT [facility] LABORATORY SERVICES - . [facility] IMMATURE GRANULOCYTES ABSOLUTE 0.18(H) 0.00 - 0.03 K/uL 01/27/2025 8:26 PM CDT [facility] LABORATORY SERVICES - [facility] Blood Venipuncture / Unknown 01/27/2025 8:12 PM CDT 01/27/2025 8:19 PM CDT Tj Saucedo MD HEMATOLOGY ORDERABLES Final R esult Performing Organization Address [facility] Co de Phone Number [facility]# [id number] [address] [place] [address] * (ABNORMAL) BRAIN NATRIURETIC PEPTIDE, BNP OR PROBNP (01/27/2025 8:12 PM CDT) PROBNP, N TERMINAL 264(H) <124 pg/mL 01/27/2025 8:58 PM CDT [facility] Comment: INTERPRETIVE COMMENT based on diagnosis: Diagnostic NT pro-BNP cutoffs for Heart Failure in the absence of renal failure is suggested for the following ranges <75 years: <125 pg/mL >=75 years: <450 pg/mL Exclusionary rule out cut-point for Acute Decompensated Heart Failure(ADHF) All ages: <300 pg/mL Diagnostic NT pro-BNP cutoffs for Acute Decompensated Heart Failure(ADHF) in the absence of renal failure is suggested for the following ages <50 years: > 450 pg/mL 50-75 years: > 900 pg/mL >75 years: >1800 pg/mL Blood Venipuncture / Unknown 01/27/2025 8:12 PM CDT 01/27/2025 8:19 PM CDT Tj Saucedo MD CHEMISTRY ORDERABLES Final Re sult Performing Organization Address [facility] Co de Phone Number [facility] [facility]# [id number] [address] [place] [address] * (ABNORMAL) COMPREHENSIVE METABOLIC PANEL (01/27/2025 8:12 PM CDT) SODIUM 136 136 - 145 mmol/L 01/27/2025 10:49 PM CDT [facility] POTASSIUM 3.6 3.5 - 5.0 mmol/L 01/27/2025 10:49 PM CDT [facility] LABORATORY SERVICES - [facility] CHLORIDE 101 98 - 107 mmol/L 01/27/2025 10:49 PM [facility] LABORATORY SERVICES - [facility] CO2 19(L) 22 - 29 mmol/L 01/27/2025 10:49 PM [employer] LABORATORY SERVICES - [facility] CALCIUM 9.7 8.6 - 10.2 mg/dL 01/27/2025 10:49 PM [employer] LABORATORY SERVICES - [facility] BUN 11 8 - 23 mg/dL 01/27/2025 10:49 PM [employer] LABORATORY SERVICES - [facility] CREATININE 0.66 0.51 - 0.95 mg/dL 01/27/2025 10:49 PM [employer] LABORATORY SERVICES - [facility] Comment:The GFR result is no t clinically significant on patients <18 or >70 years of age. GLUCOSE 103(H) 74 - 99 mg/dL 01/27/2025 10:49 PM [employer] LABORATORY SERVICES - [facility] TOTAL PROTEIN 6.9 6.7 - 8.6 g/dL 01/27/2025 10:49 PM [employer] LABORATORY SERVICES - [facility] ALBUMIN 3.9 3.5 - 5.2 g/dL 01/27/2025 10:49 PM [employer] LABORATORY SERVICES - [facility] BILIRUBIN TOTAL 0.5 0.0 - 1.1 mg/dL 01/27/2025 10:49 PM [facility] LABORATORY [facility] ALKALINE PHOSPHATASE 77 35 - 104 U/L 01/27/2025 10:49 PM [employer] LABORATORY SERVICES [facility] AST 26 <33 U/L 01/27/2025 10:49 PM [employer] LABORATORY SERVICES - [facility] ALT 17 <34 U/L 01/27/2025 10:49 PM [employer] LABORATORY SERVICES [facility] GFR >60 mL/min/1.7 3 sq meter 01/27/2025 10:49 PM [employer] LABORATORY SERVICES [facility] Comment:eGFR calculated with 2020 CKD-EPI equation. Vegetarian diet, extremely high or low muscle mass, and may affect results. Cystatin C with Glomerular Filtration Rate is a suitable alternative for these patients. ANION GAP 16 8 - 16 mmol/L 01/27/2025 10:49 PM [employer] LABORATORY [facility] Blood Venipuncture / Unknown 01/27/2025 8:12 PM CDT 01/27/2025 8:19 PM CDT Narrative [facility] - 01/27/2025 10:49 PM CDT Samples containing indocyanine green cause interferences on Total and/or Direct Bilirubin and must not be measured. 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 Vegetable: bhavanaberny : 1955 Requested By: Order Number: [id number] Reading : Edward Lew Measurements Intervals [place] Rate: 82 P: 54 NV: 182 QRS: 56 QRSD: 112 T: 18 QT: 384 QTc: 449 Interpretive Statements Sinus rhythm Probable left atrial enlargement Incomplete right bundle branch block Electronically Signed On 01-28-2025 7:51:57 CDT by Edward Lew Procedure Note Edward Lew MD - 01/28/2025 [facility] [address] [place] [id number] Test Date: 2025-01-27 Pat Name: DAVID STEPHEN Department: 38 Room: 3086 Gender: Female Farmer Vegetable: santana : 1955 Requested By: Order Number: [id number] Reading PEDRITO Lew Measurements Intervals [place] Rate: 82 P: 54 NV: 182 QRS: 56 QRSD: 112 T: 18 QT: 384 QTc: 449 Interpretive Statements Sinus rhythm Probable left atrial enlargement Incomplete right bundle branch block Electronically Signed On 01-28-2025 7:51:57 CDT by Edward Lew us Tj Saucedo MD ECG ORDERABLES Final Result INTERFACE SYSTEM Refer to clinic/hospital department * COLONOSCOPY REPORT (01/23/2025 10:34 AM CDT) Narrative Procedure Note Juan Funes MD - 01/23/2025 10:34 AM CDT [facility] Endoscopy Patient Name: David Stephen Procedure Date: 01/23/2025 Date of : 1955 Attending MD: Juan Funes MD, Procedure: Colonoscopy Indications: Hematochezia, Acute post hemorrhagic anemia. Reports history of polyps. Last colonoscopy around 3 years ago. Was to repeat in 5 years. Providers: Juan Funes MD Referring MD: Medicines: Monitored Anesthesia Care Complications: No immediate complications. Procedure: Informed consent was obtained for the procedure, including moderate sedation after risks were discussed. Based on the pre-procedure assessment, including review of the patient's medical history, medications, allergies, and review of systems, the patient was deemed to be an appropriate candidate for sedation. A timeout was performed. Continuous ECG monitoring, pulse oximetry, blood pressure monitoring, and direct observation were performed. The was introduced through the anus and advanced to the terminal ileum. The quality of the bowel preparation was excellent. Exam included multiple passes and narrow band imaging. Estimated Blood Loss: Estimated blood loss: none. Findings: A 5 mm polyp was found in the distal descending colon. The polyp was sessile. The polyp was removed with a cold snare. Resection and retrieval were complete. Multiple diverticula were found in the entire colon. This was most pronounced in the sigmoid colon (which was tortuous) and the distal descending and scattered proximally. Internal hemorrhoids were found during retroflexion and during perianal exam. The hemorrhoids were mild/moderate. The terminal ileum appeared normal. No blood or stigmata of bleeding. Impression: - One 5 mm polyp in the distal descending colon, removed with a cold snare. Resected and retrieved. - Diverticulosis in the entire examined colon. - Internal hemorrhoids. - The examined portion of the ileum was normal. Recommendation: - Await pathology results. - Repeat colonoscopy in 5 years for surveillance pending pathology. - Advance diet. Juan Funes MD 01/23/2025 10:33:57 AM This report has been signed electronically. Number of Addenda: [phone]; [place] [address] Juan Funes MD GI PROCEDURE ORDERABLES Final Result from Last 3 Months or Most Recently Relevant to Health Maintenance Insurance [employer] CHOICE POS II MEDICARE PART A HOSPITAL ONLY [employer] CHOICE POS II RX [facility] [employer] (INTERNAL) [facility] Plans Advance Directives For more information, please contact: [phone] * Full Code (Latest Code Status on File) Date Activated Date Inactivated Comments 01/28/2025 8:43 AM 01/29/2025 9:52 PM * Full Code Date Activated Date Inactivated Comments 01/24/2025 4:24 PM 01/24/2025 7:07 PM * Default Full Code - Needs Discussion Date Activated Date Inactivated Comments 01/22/2025 8:21 AM 01/24/2025 4:24 PM Care Teams Repack Room Worker Relationship Specialty Start Date End Date Sahil Diego DO [address] [facility] [address] [place] [id number] PCP - General Internal Medicine 06/04/24
[2025-04-28 10:15] LABS: Alanine Aminotransferase 18 U/L (6-35); Albumin Level 4.1 g/dL (3.5-5.1); Alkaline Phosphatase 68 U/L (38-126); Anion Gap 8 mmol/L (4-12); Aspartate Amino Transferase 29 U/L (14-36); Bilirubin,Total 0.7 mg/dL (0.2-1.3); Blood Urea Nitrogen 15 mg/dL (7-17); Calcium 8.9 mg/dL (8.4-10.2); Carbon Dioxide 23 mmol/L (22-30); Chloride 107 mmol/L (98-107); Estimated Glomerular Filt Rate > 60; Glucose 88 mg/dL (65-110); Potassium 3.9 mmol/L (3.4-5.0); Sodium 138 mmol/L (137-145); Total Protein 7.2 g/dL (6.3-8.2)
== END 2025-04-28 09:23 | disposition home or self-care (01) ==
PROVIDERS: PCP Internal Medicine; Visit Provider Internal Medicine Hematology & Oncology
DX: D47.3 Essential (hemorrhagic) thrombocythemia (principal)
CPT/HCPCS: 36415; 80053; 85025